=== PATIENT | female | born 1935 | race Caucasian/White ===

== ENCOUNTER 2017-05-06 19:33 | Inpatient (IN) | payer MEDICARE, OTHER ==
[2017-05-06] MEDS ORDERED: NS 0.9% 1000 ML* 2,000 ML IV ONE (20:29)
[2017-05-06] MEDS ORDERED: Cefepime(*) 2 GM in NS 0.9% 50 ML* 50 ML IVPB ONE (20:29)
[2017-05-06] MEDS ORDERED: Acetaminophen SUPP* 650 MG SUPP PR ONE (20:33)
--- NOTE | 2017-05-06 20:58 | RAD ---
INDICATION: Fever and altered mental status. COMPARISON: There are no prior studies available for comparison. TECHNIQUE: A portable view of the chest was obtained. FINDINGS: The heart appears mildly enlarged. The lungs are underinflated. There is a small infiltrate at the left lung base. No pleural effusion is seen. IMPRESSION: SMALL LEFT BASILAR INFILTRATE.
[2017-05-06 21:00] LABS: Hematocrit 41 % (35-47); Hemoglobin 13.4 g/dl (12.0-16.0); Mean Corpuscular HGB Conc 33 g/dl (31-36); Mean Corpuscular Hemoglobin 29 pg (27-31); Mean Corpuscular Volume 89 fL (80-97); Mean Platelet Volume 9 um3 (7.4-10.4); Red Blood Count 4.64 10^6/ul (4.0-5.4); Red Cell Distribution Width 16 % (10.5-15); White Blood Count 12.1 10^3/ul (3.5-10.8)
[2017-05-06] MEDS ORDERED: NS 0.9% 50 ML* 50 ML ONE (21:00)
[2017-05-06 21:14] LABS: Acetaminophen < 15 mcg/mL; Alcohol < 10 mg/dL (<10)
--- NOTE | 2017-05-06 21:14 | RAD ---
INDICATION: Fever, altered mental status. COMPARISON: There are no prior studies available for comparison. TECHNIQUE: Contiguous axial sections of the brain were obtained from the skull base to the vertex without contrast. FINDINGS: The ventricles, cisterns and sulci are enlarged consistent with diffuse atrophy. There are small areas of decreased density in the subcortical and periventricular white matter suggestive of mild chronic small vessel ischemic changes. There appears to be an old lacunar infarct within the thalamus on the right side. There is no evidence for hemorrhage or mass effect. The visualized portion of the paranasal sinuses appear clear. There is an effusion within the right middle air cavity and mastoid air cells. IMPRESSION: 1. OLD LACUNAR INFARCT IN THE RIGHT THALAMUS. 2. RIGHT MASTOID AND MIDDLE EAR EFFUSIONS SUGGESTING THE POSSIBILITY OF MASTOIDITIS AND OTITIS MEDIA. RECOMMEND CLINICAL CORRELATION.
[2017-05-06 21:17] LABS: ALT 23 U/L (7-52); AST 19 U/L (13-39); Albumin 3.9 g/dL (3.2-5.2); Alkaline Phosphatase 89 U/L (34-104); BUN/Creatinine Ratio 17.6 (8-20); Blood Urea Nitrogen 29 mg/dL (6-24); C Reactive Protein 171.26 mg/L (< 5.00); CO2 Carbon Dioxide 21 mmol/L (22-32); Calcium 9.5 mg/dL (8.6-10.3); Chloride 102 mmol/L (101-111); Creatine Kinase 24 U/L (10-223); EGFR African American 38.5 (>60); EGFR Non-African American 29.9 (>60); Globulin 3.6 g/dL (2-4); Glucose 131 mg/dL (70-100); Lipase < 10 U/L (11.0-82.0); Magnesium 2.1 mg/dL (1.9-2.7); Sodium 133 mmol/L (133-145); Total Protein 7.5 g/dL (6.4-8.9)
[2017-05-06 21:18] LABS: Troponin I 0.02 ng/mL (<0.04)
[2017-05-06 21:21] LABS: Anion Gap 10 mmol/L (2-11); Potassium 5.3 mmol/L (3.5-5.0)
[2017-05-06 21:24] LABS: TSH (Thyroid Stimulating Horm) 1.02 mcIU/mL (0.34-5.60)
--- NOTE | 2017-05-06 21:32 | RAD ---
INDICATION: Fever, altered mental status. COMPARISON: There are no prior studies available for comparison. TECHNIQUE: A CT scan of the abdomen and pelvis was performed without intravenous or oral contrast. Contiguous axial sections were obtained from the lung bases through the symphysis pubis. Images were reconstructed in the coronal and sagittal planes. FINDINGS: There are small dependent bilateral lower lobe infiltrates suggestive of atelectasis. No pleural effusion is present. The liver and spleen are normal in size without significant focal abnormality on this noncontrast study. The patient is status post cholecystectomy. There is fatty infiltration of the pancreas. The adrenal glands appear hyperplastic. There are bilateral renal calculi in the lower poles of both kidneys measuring up to 0.8 cm in size. There is dilatation of the renal pelvises on both sides and mild dilatation of the calyces suggestive of mild to moderate chronic ureteropelvic junction obstructions. No ureteral or bladder calculi are seen. The urinary bladder is distended. The aorta is tortuous and ectatic. There is moderate to severe calcific plaque present. No significant enlarged retroperitoneal lymph nodes are seen. The stomach and small bowel are nondistended. There is gaseous distention of the colon without evidence for obstruction. The appendix is not visualized. There is no evidence for diverticulitis or colitis. The patient is status post hysterectomy. No free intraperitoneal air or fluid is seen. No significant focal osseous abnormality is seen. IMPRESSION: 1. NONOBSTRUCTING BILATERAL RENAL CALCULI. 2. THERE IS DILATATION OF THE RENAL PELVISES AND CALYCES SUGGESTIVE OF CHRONIC URETEROPELVIC JUNCTION OBSTRUCTIONS. 3. STATUS POST CHOLECYSTECTOMY AND HYSTERECTOMY.
[2017-05-06] MEDS ORDERED: NS 0.9% 1000 ML* 1,000 ML IV ONE (21:41)
--- NOTE | 2017-05-06 21:46 | HP ---
H&P (Free Text) History and Physical: PCP: Date/Time: 05/06/20170 CC: lethargy, fever HPI: Mrs Beckham is an 81YO female with an unknown history. She is able to answer basic questions, but is uncertain of her medical history. No family is currently present to assist. She relates onset of cough and progressive SOB & fatigue upon arrival to [facility] earlier this month. Per ED staff family had stated she developed lethargy and confusion today prompting EMS call who found her lethargic and hypoxic. Upon arrival to ED she was found to be febrile to 105F with respiratory rate in the mid-20s to low 30s and continuing lethargy which has improved somewhat by my evaluation. CXR shows prominent LLL infiltrate. PMedHx unobtainable Medications Nursing to reconcile. Allergies No Known Allergies Allergy (Verified 05/06/17 21:29) PSurgHx OS cataract extraction tonsillectomy cholecystectomy appendectomy hysterectomy "bladder surgery" SocHx: former smoker quit 2 years ago w/ ~50PYHX, no alcohol or recreational drugs; , lived in [place] until early this month when she relocated to live with family; full code status, needs revisiting FamHx: Mother & Father passed in their 80s of "old age". Older sister is alive without known medical issues. ROS: as above, otherwise reviewed and all were negative vitals: Vital Signs Temp 40.4 C 05/06/17 21:28 Pulse 100 05/06/17 21:22 Resp 22 05/06/17 21:22 BP 122/52 05/06/17 21:22 Pulse Ox 99 05/06/17 21:24 Intake & Output 05/05/17 05/06/17 05/06/17 23:59 11:59 23:59 Weight 68.039 kg Constitutional: NAD, normally developed, well-nourished HEENM: atraumatic; sclera/conjunctiva: ; blephara: ; auricles: ; hearing: ; oropharynx: Neck: soft tissue: ; thyroid: Pulmonary: diminshed L w/ L basilar crackle, fair aeration, no accessory muscle use CV: RR/RR, normal S1S2, no carotid bruit, no jugular venous distention, 2+ B DP/ PT, no edema Abdominal: soft, non-distended, non-tender, no rebound/guarding/rigidity, normoactive bowel sounds, no hepatosplenomegaly or masses, no costovertebral angle tenderness Musculoskeletal: general: grossly intact, no palpable tenderness Integumental: normal appearance and texture of exposed skin Psychiatric orientation: AA&O to PPS, but still confused affect: calm mood: cooperative eye contact: fair content: seemingly reliable when able to answer responses: mildly slowed insight: fair Testing: Lab Results 05/06/17 05/06/17 05/06/17 Range/Units 20:09 20:09 20:09 WBC (3.5-10.8) 10^3/ul RBC (4.0-5.4) 10^6/ul Hgb (12.0-16.0) g/dl Hct (35-47) % MCV (80-97) fL MCH (27-31) pg MCHC (31-36) g/dl RDW (10.5-15) % Plt Count (150-450) 10^3/ul MPV (7.4-10.4) um3 Neut % (Auto) (38-83) % Lymph % (Auto) (25-47) % [place] % (Auto) (1-9) % Eos % (Auto) (0-6) % Baso % (Auto) (0-2) % Absolute Neuts (auto) (1.5-7.7) 10^3/ul Absolute Lymphs (auto) (1.0-4.8) 10^3/ul Absolute Monos (auto) (0-0.8) 10^3/ul Absolute Eos (auto) (0-0.6) 10^3/ul Absolute Basos (auto) (0-0.2) 10^3/ul Absolute Nucleated RBC 10^3/ul Nucleated RBC % INR (Anticoag Therapy) 1.03 (0.89-1.11) APTT 27.6 (26.0-36.3) seconds Sodium 133 (133-145) mmol/L Potassium 5.3 H (3.5-5.0) mmol/L Chloride 102 (101-111) mmol/L Carbon Dioxide 21 L (22-32) mmol/L Anion Gap 10 (2-11) mmol/L BUN 29 H (6-24) mg/dL Creatinine 1.65 H (0.51-0.95) mg/dL Est GFR ( Amer) 38.5 (>60) Est GFR (Non-Af Amer) 29.9 (>60) BUN/Creatinine Ratio 17.6 (8-20) Glucose 131 H (70-100) mg/dL Lactic Acid (0.5-2.0) mmol/L Calcium 9.5 (8.6-10.3) mg/dL Magnesium 2.1 (1.9-2.7) mg/dL Total Bilirubin 0.40 (0.2-1.0) mg/dL AST 19 (13-39) U/L ALT 23 (7-52) U/L Alkaline Phosphatase 89 (34-104) U/L Ammonia (16-53) mol/L Total Creatine Kinase 24 (10-223) U/L CK-MB (CK-2) 2.5 (0.6-6.3) ng/mL Troponin I 0.02 (<0.04) ng/mL C-Reactive Protein 171.26 H (< 5.00) mg/L B-Natriuretic Peptide 62 ( - 100) pg/mL Total Protein 7.5 (6.4-8.9) g/dL Albumin 3.9 (3.2-5.2) g/dL Globulin 3.6 (2-4) g/dL Albumin/Globulin Ratio 1.1 (1-3) Lipase < 10 L (11.0-82.0) U/L TSH 1.02 (0.34-5.60) mcIU/mL Acetaminophen < 15 mcg/mL Serum Alcohol < 10 (<10) mg/dL Influenza A (Rapid) (Negative) Influenza B (Rapid) (Negative) 05/06/17 05/06/17 05/06/17 Range/Units 20:09 20:09 21:52 WBC 12.1 H (3.5-10.8) 10^3/ul RBC 4.64 (4.0-5.4) 10^6/ul Hgb 13.4 (12.0-16.0) g/dl Hct 41 (35-47) % MCV 89 (80-97) fL MCH 29 (27-31) pg MCHC 33 (31-36) g/dl RDW 16 H (10.5-15) % Plt Count 216 (150-450) 10^3/ul MPV 9 (7.4-10.4) um3 Neut % (Auto) 79.5 (38-83) % Lymph % (Auto) 7.9 L (25-47) % [place] % (Auto) 10.3 H (1-9) % Eos % (Auto) 1.8 (0-6) % Baso % (Auto) 0.5 (0-2) % Absolute Neuts (auto) 9.7 H (1.5-7.7) 10^3/ul Absolute Lymphs (auto) 1.0 (1.0-4.8) 10^3/ul Absolute Monos (auto) 1.3 H (0-0.8) 10^3/ul Absolute Eos (auto) 0.2 (0-0.6) 10^3/ul Absolute Basos (auto) 0.1 (0-0.2) 10^3/ul Absolute Nucleated RBC 0.01 10^3/ul Nucleated RBC % 0.1 INR (Anticoag Therapy) (0.89-1.11) APTT (26.0-36.3) seconds Sodium (133-145) mmol/L Potassium (3.5-5.0) mmol/L Chloride (101-111) mmol/L Carbon Dioxide (22-32) mmol/L Anion Gap (2-11) mmol/L BUN (6-24) mg/dL Creatinine (0.51-0.95) mg/dL Est GFR ( Amer) (>60) Est GFR (Non-Af Amer) (>60) BUN/Creatinine Ratio (8-20) Glucose (70-100) mg/dL Lactic Acid 0.9 (0.5-2.0) mmol/L Calcium (8.6-10.3) mg/dL Magnesium (1.9-2.7) mg/dL Total Bilirubin (0.2-1.0) mg/dL AST (13-39) U/L ALT (7-52) U/L Alkaline Phosphatase (34-104) U/L Ammonia (16-53) mol/L Total Creatine Kinase (10-223) U/L CK-MB (CK-2) (0.6-6.3) ng/mL Troponin I (<0.04) ng/mL C-Reactive Protein (< 5.00) mg/L B-Natriuretic Peptide ( - 100) pg/mL Total Protein (6.4-8.9) g/dL Albumin (3.2-5.2) g/dL Globulin (2-4) g/dL Albumin/Globulin Ratio (1-3) Lipase (11.0-82.0) U/L TSH (0.34-5.60) mcIU/mL Acetaminophen mcg/mL Serum Alcohol (<10) mg/dL Influenza A (Rapid) Negative (Negative) Influenza B (Rapid) Negative (Negative) 05/06/17 Range/Units 21:54 WBC (3.5-10.8) 10^3/ul RBC (4.0-5.4) 10^6/ul Hgb (12.0-16.0) g/dl Hct (35-47) % MCV (80-97) fL MCH (27-31) pg MCHC (31-36) g/dl RDW (10.5-15) % Plt Count (150-450) 10^3/ul MPV (7.4-10.4) um3 Neut % (Auto) (38-83) % Lymph % (Auto) (25-47) % [place] % (Auto) (1-9) % Eos % (Auto) (0-6) % Baso % (Auto) (0-2) % Absolute Neuts (auto) (1.5-7.7) 10^3/ul Absolute Lymphs (auto) (1.0-4.8) 10^3/ul Absolute Monos (auto) (0-0.8) 10^3/ul Absolute Eos (auto) (0-0.6) 10^3/ul Absolute Basos (auto) (0-0.2) 10^3/ul Absolute Nucleated RBC 10^3/ul Nucleated RBC % INR (Anticoag Therapy) (0.89-1.11) APTT (26.0-36.3) seconds Sodium (133-145) mmol/L Potassium (3.5-5.0) mmol/L Chloride (101-111) mmol/L Carbon Dioxide (22-32) mmol/L Anion Gap (2-11) mmol/L BUN (6-24) mg/dL Creatinine (0.51-0.95) mg/dL Est GFR ( Amer) (>60) Est GFR (Non-Af Amer) (>60) BUN/Creatinine Ratio (8-20) Glucose (70-100) mg/dL Lactic Acid (0.5-2.0) mmol/L Calcium (8.6-10.3) mg/dL Magnesium (1.9-2.7) mg/dL Total Bilirubin (0.2-1.0) mg/dL AST (13-39) U/L ALT (7-52) U/L Alkaline Phosphatase (34-104) U/L Ammonia 36 (16-53) mol/L Total Creatine Kinase (10-223) U/L CK-MB (CK-2) (0.6-6.3) ng/mL Troponin I (<0.04) ng/mL C-Reactive Protein (< 5.00) mg/L B-Natriuretic Peptide ( - 100) pg/mL Total Protein (6.4-8.9) g/dL Albumin (3.2-5.2) g/dL Globulin (2-4) g/dL Albumin/Globulin Ratio (1-3) Lipase (11.0-82.0) U/L TSH (0.34-5.60) mcIU/mL Acetaminophen mcg/mL Serum Alcohol (<10) mg/dL Influenza A (Rapid) (Negative) Influenza B (Rapid) (Negative) ECG, personally reviewed: sinus tachycardia rate 102, 1st degree AB block, no ischemia CXR, personally reviewed: IMPRESSION: SMALL LEFT BASILAR INFILTRATE. CT brain WO, personally reviewed: IMPRESSION: 1. OLD LACUNAR INFARCT IN THE RIGHT THALAMUS. 2. RIGHT MASTOID AND MIDDLE EAR EFFUSIONS SUGGESTING THE POSSIBILITY OF MASTOIDITIS AND OTITIS MEDIA. RECOMMEND CLINICAL CORRELATION. CT abd/pel WO, personally reviewed: IMPRESSION: 1. NONOBSTRUCTING BILATERAL RENAL CALCULI. 2. THERE IS DILATATION OF THE RENAL PELVISES AND CALYCES SUGGESTIVE OF CHRONIC URETEROPELVIC JUNCTION OBSTRUCTIONS. 3. STATUS POST CHOLECYSTECTOMY AND HYSTERECTOMY. Impression: 81F presenting with sepsis 2nd LLL pneumonia DIAGNOSIS & PLAN Primary sepsis (qSOFA 2) 2nd LLL pneumonia : IV azithromycin & ceftriaxone : single dose cefepime given in ED : IV methylprednisolone 0.5mg/kg BID : IVFs : blood & sputum CXs : check urine Legionella & S pneumo antigens : check rapid influenza : ICU monitoring : supplemental oxgyen : jc to gravity for accurate monitoring of renal function, prevention of skin breakdown in ICU patient : supportive care Secondary unknown Admission Rational: inpatient for sepsis requiring IVFs & IV ABX in patient at high risk for mortality in the outpatient setting DVTp: heparin SQ & SCDs Code Status: full HCP: daughter, Leona Jaquez
[2017-05-06] MEDS ORDERED: Ondansetron INJ* 2 MG/ML VIAL IV PRN (22:11)
[2017-05-06 22:58] LABS: Urine Bacteria 2+ (Absent); Urine Bilirubin Negative (Negative); Urine Glucose Negative (Negative); Urine Nitrite Negative (Negative)
[2017-05-06] MEDS ORDERED: Azithromycin IV(*) 500 MG in NS 0.9% 250 ML* 250 ML IVPB SCH (23:30)
[2017-05-06] MEDS: methylPREDNISolone SOD 40 MG* 1 ML VIAL IV SCH (23:58)
[2017-05-07] MEDS: cefTRIAXone VIAL(*) 1,000 MG in NS 0.9% 50 ML* 50 ML IVPB SCH ×2 (00:17→22:20)
[2017-05-07] MEDS: Nystatin TOP POWDER* 15 GM BTL TOPICAL SCH ×4 (02:34→22:20)
[2017-05-07 05:57] LABS: Hematocrit 34 % (35-47); Hemoglobin 11.4 g/dl (12.0-16.0); Mean Corpuscular HGB Conc 33 g/dl (31-36); Mean Corpuscular Hemoglobin 29 pg (27-31); Mean Corpuscular Volume 88 fL (80-97); Mean Platelet Volume 9 um3 (7.4-10.4); Red Blood Count 3.88 10^6/ul (4.0-5.4); Red Cell Distribution Width 17 % (10.5-15)
[2017-05-07 06:14] LABS: BUN/Creatinine Ratio 20.3 (8-20); Calcium 8.3 mg/dL (8.6-10.3); Potassium 4.4 mmol/L (3.5-5.0)
--- NOTE | 2017-05-07 06:41 | ED ---
Sergio Perry Nilda, scribed for Nacho Wadsworth MD on 05/07/17 at 0457 . Altered Mental Status - HPI Summary HPI Summary: This patient is a 81 year old F BIBA presenting to [facility] with a chief complaint of altered mental status characterized as difficult to wake. Symptoms alleviated by nothing. Patient reports dry mouth, fever, syncope (yesterday), and lower back pain. Patient denies cough, chest congestion, headache, sore throat, abdominal pain, burning with urination, urinary frequency, and leg pain. NKDA. No PMHx CVA. - History Of Current Complaint Chief Complaint: EDAltMentalStatus Stated Complaint: AMS Time Seen by Provider: 05/06/17 20:06 Hx Obtained From: Patient Onset/Duration: Unknown, Still Present Character: Lethargy - Difficult to wake Alleviating Factor(s): Nothing Associated Signs And Symptoms: Positive: Fever - Allergies/Home Medications Allergies/Adverse Reactions: Allergies Allergy/AdvReac Type Severity Reaction Status Date / Time Penicillins [PCN] Allergy Unknown Verified 05/06/17 23:21 Reaction Details PMH/Surg Hx/FS Hx/Imm Hx Sensory History: Denies: Hx Legally Blind, Hx Deafness Neurological History: Denies: Hx CVA Infectious Disease History: Unable to Obtain/Confirm Infectious Disease History: Denies: Traveled Outside the [place] in Last 30 Days - Family History Known Family History: Positive: Other - mother and father of "old age" - Social History Alcohol Use: None Substance Use Type: Reports: None Smoking Status (MU): Unknown if Ever Smoked Review of Systems Positive: Fever, Other - dry mouth Positive: Other - negative chest congestion Negative: Cough Negative: Abdominal Pain Positive: Other - lower back pain Neurological: Other - difficult to wake Positive: Syncope - yesterday. Negative: Headache All Other Systems Reviewed And Are Negative: No Physical Exam - Summary Physical Exam Summary: General: severely ill-appearing Skin: warm, color reflects adequate perfusion, dry, rash underneath both breasts Head: normal Eyes: EOMI, BRANDYN ENT: oral mucosa dry Neck: supple, nontender Respiratory: CTA, breath sounds present Cardiovascular: tachycardic Abdomen: soft, nontender Bowel: hypoactive bowel sounds Musculoskeletal: strength/ROM intact, bilateral pitting edema Neurological: normal, sensory/motor intact, confused Psychological: GCS 13 Triage Information Reviewed: Yes Vital Signs On Initial Exam: Initial Vitals Temp Pulse Resp BP Pulse Ox 105.2 F 119 33 93/72 99 05/06/17 20:12 05/06/17 20:12 05/06/17 20:12 05/06/17 20:12 05/06/17 20:12 Vital Signs Reviewed: Yes - [place] Coma Scale Coma Scale Total: 13 Diagnostics - Vital Signs Vital Signs Temp Pulse Resp BP Pulse Ox 05/06/17 20:12 105.2 F 119 33 93/72 99 - Laboratory Lab Results: Lab Results 05/06/17 05/06/17 05/06/17 Range/Units 20:09 20:09 20:09 WBC (3.5-10.8) 10^3/ul RBC (4.0-5.4) 10^6/ul Hgb (12.0-16.0) g/dl Hct (35-47) % MCV (80-97) fL MCH (27-31) pg MCHC (31-36) g/dl RDW (10.5-15) % Plt Count (150-450) 10^3/ul MPV (7.4-10.4) um3 Neut % (Auto) (38-83) % Lymph % (Auto) (25-47) % [place] % (Auto) (1-9) % Eos % (Auto) (0-6) % Baso % (Auto) (0-2) % Absolute Neuts (auto) (1.5-7.7) 10^3/ul Absolute Lymphs (auto) (1.0-4.8) 10^3/ul Absolute Monos (auto) (0-0.8) 10^3/ul Absolute Eos (auto) (0-0.6) 10^3/ul Absolute Basos (auto) (0-0.2) 10^3/ul Absolute Nucleated RBC 10^3/ul Nucleated RBC % INR (Anticoag Therapy) 1.03 (0.89-1.11) APTT 27.6 (26.0-36.3) seconds Sodium 133 (133-145) mmol/L Potassium 5.3 H (3.5-5.0) mmol/L Chloride 102 (101-111) mmol/L Carbon Dioxide 21 L (22-32) mmol/L Anion Gap 10 (2-11) mmol/L BUN 29 H (6-24) mg/dL Creatinine 1.65 H (0.51-0.95) mg/dL Est GFR ( Amer) 38.5 (>60) Est GFR (Non-Af Amer) 29.9 (>60) BUN/Creatinine Ratio 17.6 (8-20) Glucose 131 H (70-100) mg/dL Lactic Acid (0.5-2.0) mmol/L Calcium 9.5 (8.6-10.3) mg/dL Magnesium 2.1 (1.9-2.7) mg/dL Total Bilirubin 0.40 (0.2-1.0) mg/dL AST 19 (13-39) U/L ALT 23 (7-52) U/L Alkaline Phosphatase 89 (34-104) U/L Ammonia (16-53) mol/L Total Creatine Kinase 24 (10-223) U/L CK-MB (CK-2) 2.5 (0.6-6.3) ng/mL Troponin I 0.02 (<0.04) ng/mL C-Reactive Protein 171.26 H (< 5.00) mg/L B-Natriuretic Peptide 62 ( - 100) pg/mL Total Protein 7.5 (6.4-8.9) g/dL Albumin 3.9 (3.2-5.2) g/dL Globulin 3.6 (2-4) g/dL Albumin/Globulin Ratio 1.1 (1-3) Lipase < 10 L (11.0-82.0) U/L TSH 1.02 (0.34-5.60) mcIU/mL Acetaminophen < 15 mcg/mL Serum Alcohol < 10 (<10) mg/dL Influenza A (Rapid) (Negative) Influenza B (Rapid) (Negative) 05/06/17 05/06/17 05/06/17 Range/Units 20:09 20:09 21:52 WBC 12.1 H (3.5-10.8) 10^3/ul RBC 4.64 (4.0-5.4) 10^6/ul Hgb 13.4 (12.0-16.0) g/dl Hct 41 (35-47) % MCV 89 (80-97) fL MCH 29 (27-31) pg MCHC 33 (31-36) g/dl RDW 16 H (10.5-15) % Plt Count 216 (150-450) 10^3/ul MPV 9 (7.4-10.4) um3 Neut % (Auto) 79.5 (38-83) % Lymph % (Auto) 7.9 L (25-47) % [place] % (Auto) 10.3 H (1-9) % Eos % (Auto) 1.8 (0-6) % Baso % (Auto) 0.5 (0-2) % Absolute Neuts (auto) 9.7 H (1.5-7.7) 10^3/ul Absolute Lymphs (auto) 1.0 (1.0-4.8) 10^3/ul Absolute Monos (auto) 1.3 H (0-0.8) 10^3/ul Absolute Eos (auto) 0.2 (0-0.6) 10^3/ul Absolute Basos (auto) 0.1 (0-0.2) 10^3/ul Absolute Nucleated RBC 0.01 10^3/ul Nucleated RBC % 0.1 INR (Anticoag Therapy) (0.89-1.11) APTT (26.0-36.3) seconds Sodium (133-145) mmol/L Potassium (3.5-5.0) mmol/L Chloride (101-111) mmol/L Carbon Dioxide (22-32) mmol/L Anion Gap (2-11) mmol/L BUN (6-24) mg/dL Creatinine (0.51-0.95) mg/dL Est GFR ( Amer) (>60) Est GFR (Non-Af Amer) (>60) BUN/Creatinine Ratio (8-20) Glucose (70-100) mg/dL Lactic Acid 0.9 (0.5-2.0) mmol/L Calcium (8.6-10.3) mg/dL Magnesium (1.9-2.7) mg/dL Total Bilirubin (0.2-1.0) mg/dL AST (13-39) U/L ALT (7-52) U/L Alkaline Phosphatase (34-104) U/L Ammonia (16-53) mol/L Total Creatine Kinase (10-223) U/L CK-MB (CK-2) (0.6-6.3) ng/mL Troponin I (<0.04) ng/mL C-Reactive Protein (< 5.00) mg/L B-Natriuretic Peptide ( - 100) pg/mL Total Protein (6.4-8.9) g/dL Albumin (3.2-5.2) g/dL Globulin (2-4) g/dL Albumin/Globulin Ratio (1-3) Lipase (11.0-82.0) U/L TSH (0.34-5.60) mcIU/mL Acetaminophen mcg/mL Serum Alcohol (<10) mg/dL Influenza A (Rapid) Negative (Negative) Influenza B (Rapid) Negative (Negative) 05/06/17 Range/Units 21:54 WBC (3.5-10.8) 10^3/ul RBC (4.0-5.4) 10^6/ul Hgb (12.0-16.0) g/dl Hct (35-47) % MCV (80-97) fL MCH (27-31) pg MCHC (31-36) g/dl RDW (10.5-15) % Plt Count (150-450) 10^3/ul MPV (7.4-10.4) um3 Neut % (Auto) (38-83) % Lymph % (Auto) (25-47) % [place] % (Auto) (1-9) % Eos % (Auto) (0-6) % Baso % (Auto) (0-2) % Absolute Neuts (auto) (1.5-7.7) 10^3/ul Absolute Lymphs (auto) (1.0-4.8) 10^3/ul Absolute Monos (auto) (0-0.8) 10^3/ul Absolute Eos (auto) (0-0.6) 10^3/ul Absolute Basos (auto) (0-0.2) 10^3/ul Absolute Nucleated RBC 10^3/ul Nucleated RBC % INR (Anticoag Therapy) (0.89-1.11) APTT (26.0-36.3) seconds Sodium (133-145) mmol/L Potassium (3.5-5.0) mmol/L Chloride (101-111) mmol/L Carbon Dioxide (22-32) mmol/L Anion Gap (2-11) mmol/L BUN (6-24) mg/dL Creatinine (0.51-0.95) mg/dL Est GFR ( Amer) (>60) Est GFR (Non-Af Amer) (>60) BUN/Creatinine Ratio (8-20) Glucose (70-100) mg/dL Lactic Acid (0.5-2.0) mmol/L Calcium (8.6-10.3) mg/dL Magnesium (1.9-2.7) mg/dL Total Bilirubin (0.2-1.0) mg/dL AST (13-39) U/L ALT (7-52) U/L Alkaline Phosphatase (34-104) U/L Ammonia 36 (16-53) mol/L Total Creatine Kinase (10-223) U/L CK-MB (CK-2) (0.6-6.3) ng/mL Troponin I (<0.04) ng/mL C-Reactive Protein (< 5.00) mg/L B-Natriuretic Peptide ( - 100) pg/mL Total Protein (6.4-8.9) g/dL Albumin (3.2-5.2) g/dL Globulin (2-4) g/dL Albumin/Globulin Ratio (1-3) Lipase (11.0-82.0) U/L TSH (0.34-5.60) mcIU/mL Acetaminophen mcg/mL Serum Alcohol (<10) mg/dL Influenza A (Rapid) (Negative) Influenza B (Rapid) (Negative) Result Diagrams: 05/07/17 05:25 05/07/17 05:25 Lab Statement: Any lab studies that have been ordered have been reviewed, and results considered in the medical decision making process. - Radiology CXR Radiology Interpretation Completed By: Radiologist - Impression: small left basilar infiltrate ED physician has reviewed report and agrees. - CT Abdomen/Pelvis w/o CT Interpretation: Positive (See Comments) CT Interpretation Completed By: Radiologist - 1. NONOBSTRUCTING BILATERAL RENAL CALCULI. 2. THERE IS DILATATION OF THE RENAL PELVISES AND CALYCES SUGGESTIVE OF CHRONIC URETEROPELVIC JUNCTION OBSTRUCTIONS. 3. STATUS POST CHOLECYSTECTOMY AND HYSTERECTOMY. ED physician has reviewed report and agrees. CT Brain CT Interpretation: Positive (See Comments) CT Interpretation Completed By: Radiologist - 1. OLD LACUNAR INFARCT IN THE RIGHT THALAMUS. 2. RIGHT MASTOID AND MIDDLE EAR EFFUSIONS SUGGESTING THE POSSIBILITY OF MASTOIDITIS AND OTITIS MEDIA. RECOMMEND CLINICAL CORRELATION. ED physician has reviewed report and agrees. - EKG 2121 Cardiac Rate: Tachycardia - 102 bpm EKG Rhythm: Sinus Tachycardia ST Segment: Normal EKG Interpretation: ND interval of 219 Re-Evaluation - Re-Evaluation First Eval Re-Evaluation Time: 20:27 Comment: Reviewed drug allergies. Altered Mental Statu Course/Dx - Course Course Of Treatment: ADMIT GUARDED HOSPITALIST. Assessment/Plan: Medications reviewed. - Diagnoses Discharge Diagnoses: Sepsis, Pneumonia, Altered mental state - Provider Notifications Discussed Care Of Patient With: Pradip Hendrix - Hospitalist Time Discussed With Above Provider: 20:29 Instructed by Provider To: Admit As Inpatient - Critical Care Time Critical Care Time: 30-74 min Discharge - Discharge Plan Condition: Guarded Disposition: ADMITTED TO [facility] The documentation as recorded by the Sergio miner Nilda accurately reflects the service I personally performed and the decisions made by me, Nacho Wadsworth MD.
--- NOTE | 2017-05-07 07:52 | PN ---
Subjective Date of Service: 05/07/17 Interval History: Ms. Beckham remains lethargic but does open her eyes to stimulation, follow commands, and communicate briefly. She does know where she is. She complains that she is hard of hearing in her right ear. She denies any other complaint this morning. Nursing staff note that she went in to afib overnight but is rate controlled. With this her blood pressure did fall but remains above 90 systolically. Objective Active Medications: Acetaminophen (Tylenol Tab*) 650 mg PO Q6H PRN Docusate Sodium (Colace Cap*) 200 mg PO BID [facility] Guaifenesin (Mucinex*) 1,200 mg PO BID [facility] Sodium Chloride (Ns 0.9% 1000 Ml*) 1,000 mls @ 85 mls/hr IV PER RATE [facility] Ceftriaxone Sodium 1,000 mg/ (Sodium Chloride) 50 mls @ 200 mls/hr IVPB Q24H [facility] Azithromycin 500 mg/ Sodium (Chloride) 250 mls @ 250 mls/hr IVPB Q24H [facility] Methylprednisolone Sodium Succinate (Solu-Medrol 40 Mg) 40 mg IV Q12H [facility] Nystatin (Nystatin Top Powder*) 1 applic TOPICAL TID [facility] Ondansetron HCl (Zofran Inj*) 4 mg IV Q6H PRN Vital Signs: Temp Pulse Resp BP Pulse Ox 97.7 F 77 21 154/142 95 05/07/17 06:03 05/07/17 06:03 05/07/17 06:03 05/07/17 06:00 05/07/17 06:03 Oxygen Devices in Use Now: Nasal Cannula Appearance: Elderly female lying in bed, aroses to noxious stimuli, in no acute distress Ears/Nose/Mouth/Throat: Mucous Membranes Moist, - - minimal erythema with effusion to right TM, no effusion to left TM Neck: Trachea Midline Respiratory: Symmetrical Chest Expansion and Respiratory Effort, Clear to Auscultation Cardiovascular: NL Sounds; No Murmurs; No JVD, No Edema, - - Irregular Abdominal: NL Sounds; No Tenderness; No Distention Lymphatic: No Cervical Adenopathy Extremities: No Edema Skin: - - rash under breast folds Neurological: - - Awakens to insistent voice or noxious stimuli, follows commands and answers questions appropriately, though only stays awake for a few seconds, no facial asymmetry, pupils Nutrition: - - NPO Result Diagrams: 05/07/17 05:25 05/07/17 05:25 Additional Lab and Data: Vital Signs: Temp Pulse Resp BP Pulse Ox 98.2 F 57 18 118/52 96 05/07/17 16:01 05/07/17 16:01 05/07/17 16:01 05/07/17 16:00 05/07/17 16:01 Microbiology and Other Data: Microbiology 05/07/17 00:40 Nasal Screen MRSA (PCR)(COURT) - Final Nasal Mrsa Negative 05/07/17 00:40 Influenza Types A,B Antigen (COURT) - Final Nasal Specimen received for Influenza A/B Molecular testing 05/06/17 22:34 Legionella Urinary Antigen - Final Urine Negative Legionella Streptococcus pneumoniae Ag Screen - Final Negative S. pneumo Antigen Assess/Plan/Problems-Billing Assessment: Ms. Beckham is an 81 yo female with an unknown PMH who was admitted on with sepsis secondary to UTI with possible concomitant left lower lobe pneumonia. - Patient Problems (1) Sepsis Comment: - Afebrile this AM, no leukocytosis, HR controlled, no tachypnea. - Suspect secondary to UTI but cxray also shows concern for LL pneumonia. - LA normal, continue maintenance IVF. (2) UTI (urinary tract infection) Comment: - UA with 3+ LE and 2+ bacteria. - Continue ceftriaxone, await cultures. (3) Pneumonia Comment: - LL pneumonia noted on cxray, however not hypoxic and no clear report of cough at home. - Continue ceftriaxone, plan to switch to doxycycline given significant sinus pauses as azith prolongs Qt interval. Stop solumedrol. - O2 as needed. (4) Otitis media Comment: - Right ear effusion noted, patient notes hearing loss as well. - Continue ceftriaxone. (5) Sinus pause Comment: - 2 second pauses noted on telemetry in the AM. - Resume amiodarone. Stop zofran and azithromcyin. - Held metoprolol initially but will add back in low dose to avoid rebound tachycardia, decrease from 100 BID to 12.5 BID. (6) Afib Comment: - Developed rate controlled afib overnight. - Based on med list, is on amiodarone outpatient. Have requested records from [facility] but havent recieved. Patient recently moved from [place] and she and her daughter do not have any information on her PMH. - Continue to treat sepsis as per above. - Resume amiodarone. (7) Depression Comment: - Continue fluoxetine. (8) Hypertension Comment: - SBP 100s. Hold hctz, amlodipine and lisinopril during acute illness, resume when BP improved. (9) DVT prophylaxis Comment: - Heparin SQ. (10) Full code status Status and Disposition: Inpatient with critical illness and expected LOS > 2 days. Patient recently moved in with daughter from [place], outpatient case manager following. Very little information about PMH, requested records from one and only visit to [facility]. Patient's daughter does not know the name of her PCP in [place].
[2017-05-07] MEDS: Docusate CAP* 100 MG PO SCH ×3 (09:30→22:22)
[2017-05-07] MEDS: guaiFENesin ER TAB 600 MG PO SCH ×2 (09:30→22:22)
[2017-05-07] MEDS: methylPREDNISolone SOD 40 MG* 1 ML VIAL IV SCH (11:19)
[2017-05-07] MEDS: Amiodarone TAB* 200 MG PO SCH (13:15)
[2017-05-07] MEDS: Heparin VIAL(*) 5000 UNITS/ML VIAL (FIVE THOUSAND) SUBCUT SCH ×2 (13:15→22:22)
[2017-05-07] MEDS ORDERED: Pregabalin CAP(*) 50 MG PO SCH (14:00)
[2017-05-07] MEDS: Acetaminophen TAB* 325 MG PO PRN ×2 (14:50→22:32)
[2017-05-07] MEDS: DOXYcycline CAP(*) 100 MG PO SCH (20:56)
[2017-05-07] MEDS: NS 0.9% 1000 ML* 1,000 ML IV SCH (20:56)
[2017-05-07] MEDS ORDERED: Senna/Docusate (NF) TAB PO SCH (21:00)
[2017-05-07] MEDS ORDERED: Famotidine TAB* 20 MG PO SCH (21:00)
[2017-05-07] MEDS: Metoprolol Tartrate TAB* 25 MG PO SCH (22:23)
[2017-05-07] MEDS: Senna TAB PO SCH (22:23)
[2017-05-08] MEDS ORDERED: Ropinirole TAB* 0.5 MG TAB PO ONE (00:17)
[2017-05-08] MEDS: Heparin VIAL(*) 5000 UNITS/ML VIAL (FIVE THOUSAND) SUBCUT SCH ×3 (05:35→21:40)
[2017-05-08] MEDS ORDERED: Amiodarone TAB* 200 MG PO SCH (09:00)
[2017-05-08] MEDS ORDERED: amLODIPine TAB* 5 MG PO SCH (09:00)
[2017-05-08] MEDS: Aspirin TAB* 325 MG PO SCH (10:03)
[2017-05-08] MEDS: DOXYcycline CAP(*) 100 MG PO SCH ×2 (10:03→21:25)
[2017-05-08] MEDS: Metoprolol Tartrate TAB* 25 MG PO SCH ×2 (10:04→21:23)
[2017-05-08] MEDS: Acetaminophen TAB* 325 MG PO PRN (10:05)
[2017-05-08] MEDS: Amiodarone TAB* 200 MG PO SCH (10:06)
[2017-05-08] MEDS: guaiFENesin ER TAB 600 MG PO SCH ×2 (10:06→21:24)
[2017-05-08] MEDS: FLUoxetine CAP* 10 MG PO SCH (10:06)
[2017-05-08] MEDS: Famotidine TAB* 20 MG PO SCH (10:09)
[2017-05-08] MEDS: Senna TAB PO SCH ×2 (10:09→21:25)
[2017-05-08] MEDS: Docusate CAP* 100 MG PO SCH ×3 (10:10→21:23)
[2017-05-08] MEDS: NS 0.9% 1000 ML* 1,000 ML IV SCH ×2 (10:13→22:06)
[2017-05-08] MEDS: Nystatin TOP POWDER* 15 GM BTL TOPICAL SCH ×3 (10:17→21:22)
[2017-05-08] MEDS: Ropinirole TAB* 0.5 MG TAB PO SCH ×2 (15:29→21:23)
--- NOTE | 2017-05-08 17:56 | PN ---
Subjective Date of Service: 05/08/17 Interval History: C/O SOB, started soon after she moved here from [place]. Little cough. Objective Active Medications: Acetaminophen (Tylenol Tab*) 650 mg PO Q6H PRN PRN Reason: FEVER/PAIN Last Admin: 05/08/17 10:05 Dose: 650 mg Albuterol/Ipratropium (Duoneb (Albuterol 2.5 Mg/Ipratropium 0.5 Mg)) 1 neb INH [id number] AWAKE [facility] Amiodarone HCl (Cordarone Tab*) 200 mg PO DAILY [facility] Last Admin: 05/08/17 10:06 Dose: 200 mg Aspirin (Aspirin Tab*) 325 mg PO DAILY [facility] Last Admin: 05/08/17 10:03 Dose: 325 mg Docusate Sodium (Colace Cap*) 100 mg PO BID [facility] Last Admin: 05/08/17 10:10 Dose: 100 mg Doxycycline Hyclate (Vibramycin Cap(*)) 100 mg PO BID [facility] Last Admin: 05/08/17 10:03 Dose: 100 mg Famotidine (Pepcid Tab*) 20 mg PO DAILY [facility] Last Admin: 05/08/17 10:09 Dose: 20 mg Fluoxetine HCl (Prozac Cap*) 10 mg PO DAILY [facility] Last Admin: 05/08/17 10:06 Dose: 10 mg Guaifenesin (Mucinex*) 1,200 mg PO BID [facility] Last Admin: 05/08/17 10:06 Dose: 1,200 mg Heparin Sodium (Porcine) (Heparin Vial(*)) 5,000 units SUBCUT Q8HR [facility] Last Admin: 05/08/17 14:39 Dose: 5,000 units Heparin Sodium (Porcine) (Heparin Flush Picc/Ml/Cvc(*)) 1 ml FLUSH 0600,1800 [facility] PRN Reason: Protocol Last Admin: 05/08/17 05:01 Dose: Not Given Sodium Chloride (Ns 0.9% 1000 Ml*) 1,000 mls @ 85 mls/hr IV PER RATE [facility] Last Admin: 05/08/17 10:13 Dose: 85 mls/hr Ceftriaxone Sodium 1,000 mg/ (Sodium Chloride) 50 mls @ 200 mls/hr IVPB Q24H [facility] Last Admin: 05/07/17 22:20 Dose: 200 mls/hr Metoprolol Tartrate (Lopressor Tab*) 12.5 mg PO Q12HR [facility] Last Admin: 05/08/17 10:04 Dose: 12.5 mg Nystatin (Nystatin Top Powder*) 1 applic TOPICAL TID [facility] Last Admin: 05/08/17 14:40 Dose: Not Given Prednisone (Deltasone Tab*) 60 mg PO DAILY [facility] Ropinirole HCl (Requip Tab*) 0.5 mg PO BID [facility] Last Admin: 05/08/17 15:29 Dose: 0.5 mg Senna (Senokot Tab*) 2 tab PO BID [facility] Last Admin: 05/08/17 10:09 Dose: 2 tab Vital Signs 05/07/17 05/07/17 05/07/17 18:00 19:00 20:23 Temperature 97.9 F 97.7 F 96.8 F Pulse Rate 49 55 70 Respiratory 19 18 20 Rate Blood Pressure 124/51 128/52 139/52 (mmHg) O2 Sat by Pulse 99 98 99 Oximetry 05/07/17 05/07/17 05/08/17 20:30 23:32 02:57 Temperature 97.6 F Pulse Rate 60 Respiratory 20 16 Rate Blood Pressure 125/50 (mmHg) O2 Sat by Pulse 99 99 Oximetry 05/08/17 05/08/17 05/08/17 03:30 07:39 08:00 Temperature 97.7 F 97.7 F Pulse Rate 62 65 Respiratory 16 16 16 Rate Blood Pressure 139/51 126/47 (mmHg) O2 Sat by Pulse 99 99 Oximetry 05/08/17 05/08/17 11:39 15:47 Temperature 97.5 F 97.5 F Pulse Rate 48 65 Respiratory 20 16 Rate Blood Pressure 148/67 162/67 (mmHg) O2 Sat by Pulse 97 98 Oximetry Oxygen Devices in Use Now: Nasal Cannula Appearance: Alert, partly up in bed. IN fair spirits. Looks comfortable. Eyes: No Scleral Icterus Neck: NL Appearance and Movements; NL JVP, No Thyroid Enlargement, Masses Respiratory: Symmetrical Chest Expansion and Respiratory Effort, Clear to Percussion, - - Rales R base Cardiovascular: NL Sounds; No Murmurs; No JVD, RRR, No Edema, - Extremities: No Edema, No Clubbing, Cyanosis, - Skin: No Rash or Ulcers, No Nodules or Sclerosis, - Neurological: Alert and Oriented x 3, NL Sensation Result Diagrams: 05/07/17 05:25 05/07/17 05:25 Additional Lab and Data: Vital Signs: Temp Pulse Resp BP Pulse Ox 98.2 F 57 18 118/52 96 05/07/17 16:01 05/07/17 16:01 05/07/17 16:01 05/07/17 16:00 05/07/17 16:01 Microbiology and Other Data: Microbiology 05/07/17 00:40 Nasal Screen MRSA (PCR)(COURT) - Final Nasal Mrsa Negative 05/07/17 00:40 Influenza Types A,B Antigen (COURT) - Final Nasal Specimen received for Influenza A/B Molecular testing 05/06/17 22:34 Legionella Urinary Antigen - Final Urine Negative Legionella Streptococcus pneumoniae Ag Screen - Final Negative S. pneumo Antigen Assess/Plan/Problems-Billing Assessment: Ms. Beckham is an 81 yo female with an unknown PMH who was admitted on with sepsis secondary to UTI with possible concomitant left lower lobe pneumonia. - Patient Problems (1) Afib Current Visit: Yes Status: Acute Code(s): I48.91 - UNSPECIFIED ATRIAL FIBRILLATION SNOMED Code(s): 18718594 Comment: TSH wnl05/06/17. Echo ordered. - Resumed amiodarone. Continue metoprolol. (2) Sepsis Current Visit: Yes Status: Acute Comment: - Afebrile since admission, no leukocytosis, HR controlled, no tachypnea. - Suspect secondary to UTI but cxray also shows concern for LL pneumonia. - COntinue cefriaxone. UTI sens pending. (3) COPD (chronic obstructive pulmonary disease) Current Visit: Yes Status: Acute Code(s): J44.9 - CHRONIC OBSTRUCTIVE PULMONARY DISEASE, UNSPECIFIED SNOMED Code(s): 08647268 Comment: Quit smoking 2 yrs ago. Suspect allergic component due to moving from [place]. Start prednisone 05/08 6 PM. (4) Hypertension Current Visit: Yes Status: Acute Code(s): I10 - ESSENTIAL (PRIMARY) HYPERTENSION SNOMED Code(s): 47245809 Comment: Holding hctz, amlodipine and lisinopril during acute illness, resume as needed. Status and Disposition: Inpatient with critical illness and expected LOS > 2 days. Patient recently moved in with daughter from [place], case advocate following. Very little information about PMH, requested records from one and only visit to [facility]. Patient's daughter does not know the name of her PCP in [place].
[2017-05-08] MEDS: predniSONE TAB* 20 MG PO SCH (18:17)
[2017-05-08] MEDS: Albuterol/Ipratropium NEB.SOL* Albuterol 2.5 MG/Ipratropium 0.5 MG 3 ML INH SCH ×2 (19:26→23:01)
[2017-05-08] MEDS ORDERED: Ondansetron TAB* 4 MG PO PRN (20:00)
[2017-05-08] MEDS ORDERED: CMCS:Melatonin (NF) 3 MG TAB PO SCH (21:00)
[2017-05-08] MEDS: LORazepam TAB(*) 0.5 MG PO SCH (21:24)
[2017-05-08] MEDS: cefTRIAXone VIAL(*) 1,000 MG in NS 0.9% 50 ML* 50 ML IVPB SCH (22:06)
[2017-05-09] MEDS: Acetaminophen TAB* 325 MG PO PRN ×3 (02:11→18:40)
[2017-05-09] MEDS: Albuterol/Ipratropium NEB.SOL* Albuterol 2.5 MG/Ipratropium 0.5 MG 3 ML INH SCH ×4 (03:51→19:41)
[2017-05-09] MEDS: Heparin VIAL(*) 5000 UNITS/ML VIAL (FIVE THOUSAND) SUBCUT SCH ×3 (05:50→20:43)
[2017-05-09] MEDS: Aspirin TAB* 325 MG PO SCH (08:55)
[2017-05-09] MEDS: Amiodarone TAB* 200 MG PO SCH (08:55)
[2017-05-09] MEDS: Famotidine TAB* 20 MG PO SCH (08:56)
[2017-05-09] MEDS: LORazepam TAB(*) 0.5 MG PO SCH ×3 (08:56→20:30)
[2017-05-09] MEDS: Ropinirole TAB* 0.5 MG TAB PO SCH ×2 (08:57→20:28)
[2017-05-09] MEDS: guaiFENesin ER TAB 600 MG PO SCH ×2 (08:57→20:36)
[2017-05-09] MEDS: Docusate CAP* 100 MG PO SCH ×2 (08:57→20:33)
[2017-05-09] MEDS: predniSONE TAB* 20 MG PO SCH (08:57)
[2017-05-09] MEDS: DOXYcycline CAP(*) 100 MG PO SCH ×2 (08:57→20:31)
[2017-05-09] MEDS: FLUoxetine CAP* 10 MG PO SCH (08:57)
[2017-05-09] MEDS: Metoprolol Tartrate TAB* 25 MG PO SCH ×2 (08:58→20:34)
[2017-05-09] MEDS: Senna TAB PO SCH ×2 (09:10→20:32)
[2017-05-09] MEDS: Nystatin TOP POWDER* 15 GM BTL TOPICAL SCH ×3 (09:10→20:47)
[2017-05-09] MEDS: NS 0.9% 1000 ML* 1,000 ML IV SCH ×2 (10:38→22:55)
--- NOTE | 2017-05-09 11:10 | ECHO ---
Patient: ELLIOTT KELLY [facility] Rec#: [id number] : 1935 Date: 05/09/2017 Age: 81y Height: 162.56 cm / 64.0 in Weight: 68.04 kg / 150.0 lbs Sex: F BSA: 1.73 Room#: [facility] Admit Date#: 05/06/2017 Type: Inpatient Referring: Mohit Tan MD Reading: Cristian Lebron MD Pack Worker Supervisor[facility] Tr[facility] Ech[facility] Indication: Atrial fibrillation BP: 160/90 HR: 69 Rhythm: A-Fib Findings History: HTN, COPD, former smoker. Technical Comments: The study quality is fair. The study is technically limited due to patient body habitus. The study was technically limited due to the patient's inability to lay in the left lateral decubitus position. Due to becoming short of breath. Completed at 1045. Left Ventricle: The left ventricular chamber size is normal. Mild concentric left ventricular hypertrophy is observed. Global left ventricular wall motion and contractility are within normal limits. There is normal left ventricular systolic function.Of note the most proximal portion of the inferior/low posterolateral wall is not well visualized The estimated ejection fraction is 55-60%. Abnormal left ventricular diastolic filling is observed, consistent with impaired relaxation. Left Atrium: The left atrium is mildly dilated. Right Ventricle: The right ventricular cavity size is normal. The right ventricular global systolic function is normal. Right Atrium: The right atrium is mildly dilated. Aortic Valve: The aortic valve is trileaflet. The aortic valve leaflets are mildly thickened. There is a trace of aortic regurgitation. There is no evidence of aortic stenosis. Mitral Valve: There is mitral annular calcification. The mitral valve leaflets are mildly thickened. There is trace to mild mitral regurgitation. There is no evidence of mitral stenosis. Tricuspid Valve: The tricuspid valve leaflets are normal. There is trace to mild tricuspid regurgitation. The right ventricular systolic pressure is estimated at 45 mmHg. There is evidence of mild to moderate pulmonary hypertension. There is no tricuspid stenosis. Pulmonic Valve: The pulmonic valve appears normal. There is mild pulmonic regurgitation. There is no pulmonic stenosis. Pericardium: There is no significant pericardial effusion. A pericardial fat pad is visualized. Aorta: There is no dilatation of the ascending aorta. The aortic arch is not well visualized. The aortic root is normal in size. Pulmonary Artery: The main pulmonary artery appears normal. Venous: The inferior vena cava appears normal in size. There is a greater than 50% respiratory change in the inferior vena cava dimension. Conclusions The study is technically limited due to patient body habitus. The study was technically limited due to the patient's inability to lay in the left lateral decubitus position. Due to becoming short of breath. Completed at 1045. Mild concentric left ventricular hypertrophy is observed. There is normal left ventricular systolic function.Of note the most proximal portion of the inferior/low posterolateral wall is not well visualized The estimated ejection fraction is 55-60%. Abnormal left ventricular diastolic filling is observed, consistent with impaired relaxation. The left atrium is mildly dilated. No significant valvular disease: There is a trace of aortic regurgitation. There is trace to mild mitral regurgitation. There is trace to mild tricuspid regurgitation. There is evidence of mild to moderate pulmonary hypertension. There is mild pulmonic regurgitation. No reports of prior studies offered for comparison. Measurements Name Value Normal Range RVIDd (AP) 2D 2.15 cm (0.9 - 2.6) RVDdMajor (2D) 3.5 cm (2.2 - 4.4) RAd ISD 4CH 5.3 cm (3.4 - 4.9) RA (A4C)W 3.1 cm (2.9 - 4.6) IVSd (2D) 1.2 cm (0.6 - 1) LVPWd (2D) 1.2 cm (0.6 - 1) LVIDd (2D) 3.79 cm (3.6 - 5.4) LVIDs (2D) 2.5 cm - LV FS (2D) 34 % (25 - 45) Aortic Annulus 1.9 cm (1.4 - 2.6) Ao root diameter (2D) 3.1 cm (2.1 - 3.5) Ascending Ao 2.9 cm (2.1 - 3.4) LA dimension (AP) 2D 3.6 cm (2.3 - 3.8) LAd ISD 4CH 5.3 cm (2.9 - 5.3) LA ISD 4CH W 3.8 cm (2.5 - 4.5) Name Value Normal Range LA ESV SP 4CH (A/L) 61 ml - LA ESV SP 2CH (A/L) 67 ml - LA ESV BP (A/L) 65 ml - LA ESV BP (A/L) index 37.54 ml/m2 - LA ESV SP 4CH (MOD) 51 ml - LA ESV SP 2CH (MOD) 63 ml - Name Value Normal Range MV E-wave Vmax 0.43 m/sec - MV deceleration time 192.8 msec - MV A-wave Vmax 0.85 m/sec - MV E:A ratio 0.51 ratio - LV septal e' Vmax 0.06 m/sec - LV lateral e' Vmax 0.06 m/sec - LV E:e' septal ratio 7.17 ratio - LV E:e' lateral ratio 7.17 ratio - Name Value Normal Range AV Vmax 1 m/sec - AV VTI 19.2 cm - AV peak gradient 3.63 mmHg - AV mean gradient 1.77 mmHg - LVOT Vmax 0.77 m/sec - LVOT VTI 17.2 cm - LVOT peak gradient 2.41 mmHg - LVOT mean gradient 1.2 mmHg - Name Value Normal Range TR Vmax 2.75 m/sec - TR peak gradient 30 mmHg - RAP 15 mmHg - RVSP 45 mmHg - IVC diameter 2.4 cm - Name Value Normal Range PV Vmax 0.73 m/sec - PV peak gradient 2.12 mmHg -
--- NOTE | 2017-05-09 15:53 | PN ---
Subjective Date of Service: 05/09/17 Interval History: Feels better today, less SOB. No new c/o. Objective Active Medications: Acetaminophen (Tylenol Tab*) 650 mg PO Q6H PRN PRN Reason: FEVER/PAIN Last Admin: 05/09/17 12:46 Dose: 650 mg Albuterol/Ipratropium (Duoneb (Albuterol 2.5 Mg/Ipratropium 0.5 Mg)) 1 neb INH [id number] AWAKE [facility] Last Admin: 05/09/17 13:53 Dose: 1 neb Amiodarone HCl (Cordarone Tab*) 200 mg PO DAILY [facility] Last Admin: 05/09/17 08:55 Dose: 200 mg Aspirin (Aspirin Tab*) 325 mg PO DAILY [facility] Last Admin: 05/09/17 08:55 Dose: 325 mg Docusate Sodium (Colace Cap*) 100 mg PO BID [facility] Last Admin: 05/09/17 08:57 Dose: Not Given Doxycycline Hyclate (Vibramycin Cap(*)) 100 mg PO BID [facility] Last Admin: 05/09/17 08:57 Dose: 100 mg Famotidine (Pepcid Tab*) 20 mg PO DAILY [facility] Last Admin: 05/09/17 08:56 Dose: 20 mg Fluoxetine HCl (Prozac Cap*) 10 mg PO DAILY [facility] Last Admin: 05/09/17 08:57 Dose: 10 mg Guaifenesin (Mucinex*) 1,200 mg PO BID [facility] Last Admin: 05/09/17 08:57 Dose: 1,200 mg Heparin Sodium (Porcine) (Heparin Vial(*)) 5,000 units SUBCUT Q8HR [facility] Last Admin: 05/09/17 15:20 Dose: 5,000 units Heparin Sodium (Porcine) (Heparin Flush Picc/Ml/Cvc(*)) 1 ml FLUSH 0600,1800 [facility] PRN Reason: Protocol Last Admin: 05/09/17 05:23 Dose: Not Given Sodium Chloride (Ns 0.9% 1000 Ml*) 1,000 mls @ 85 mls/hr IV PER RATE [facility] Last Admin: 05/09/17 10:38 Dose: 85 mls/hr Ceftriaxone Sodium 1,000 mg/ (Sodium Chloride) 50 mls @ 200 mls/hr IVPB Q24H [facility] Last Admin: 05/08/17 22:06 Dose: 200 mls/hr Lorazepam (Ativan Tab(*)) 0.5 mg PO TID [facility] Last Admin: 05/09/17 15:20 Dose: 0.5 mg Melatonin (Melatonin (Nf)) 3 mg PO BEDTIME [facility] Last Admin: 05/08/17 21:33 Dose: 3 mg Metoprolol Tartrate (Lopressor Tab*) 12.5 mg PO Q12HR [facility] Last Admin: 05/09/17 08:58 Dose: 12.5 mg Nystatin (Nystatin Top Powder*) 1 applic TOPICAL TID [facility] Last Admin: 05/09/17 15:21 Dose: 1 applic Ondansetron HCl (Zofran Tab*) 4 mg PO Q4H PRN PRN Reason: NAUSEA Prednisone (Deltasone Tab*) 60 mg PO DAILY [facility] Last Admin: 05/09/17 08:57 Dose: 60 mg Ropinirole HCl (Requip Tab*) 0.5 mg PO BID [facility] Last Admin: 05/09/17 08:57 Dose: 0.5 mg Senna (Senokot Tab*) 2 tab PO BID [facility] Last Admin: 05/09/17 09:10 Dose: Not Given Vital Signs 05/08/17 05/08/17 05/08/17 15:47 19:33 19:34 Temperature 97.5 F Pulse Rate 65 105 Respiratory 16 24 24 Rate Blood Pressure 162/67 (mmHg) O2 Sat by Pulse 98 98 Oximetry 05/08/17 05/08/17 05/08/17 20:27 21:24 23:24 Temperature 98.3 F Pulse Rate 100 Respiratory 20 22 20 Rate Blood Pressure 164/59 (mmHg) O2 Sat by Pulse 95 Oximetry 05/08/17 05/09/17 05/09/17 23:50 03:14 03:25 Temperature 98.0 F 98.1 F 98.1 F Pulse Rate 99 93 85 Respiratory 22 16 22 Rate Blood Pressure 150/80 160/90 (mmHg) O2 Sat by Pulse 95 97 95 Oximetry 05/09/17 05/09/17 05/09/17 07:44 08:00 08:16 Temperature 98.6 F Pulse Rate 142 74 Respiratory 20 22 14 Rate Blood Pressure 157/83 (mmHg) O2 Sat by Pulse 95 96 Oximetry 05/09/17 05/09/17 05/09/17 08:56 11:27 13:53 Temperature 97.9 F Pulse Rate 76 79 Respiratory 24 20 14 Rate Blood Pressure 165/89 (mmHg) O2 Sat by Pulse 98 95 Oximetry 05/09/17 15:20 Temperature Pulse Rate Respiratory 18 Rate Blood Pressure (mmHg) O2 Sat by Pulse Oximetry Oxygen Devices in Use Now: Nasal Cannula Appearance: Alert, partly up in bed. In good spirits. Looks comfortable. Eyes: No Scleral Icterus Neck: NL Appearance and Movements; NL JVP, No Thyroid Enlargement, Masses Respiratory: Symmetrical Chest Expansion and Respiratory Effort, Clear to Auscultation, Clear to Percussion Cardiovascular: NL Sounds; No Murmurs; No JVD, RRR, No Edema, - Extremities: No Edema, No Clubbing, Cyanosis, - Skin: No Rash or Ulcers, No Nodules or Sclerosis, - Neurological: Alert and Oriented x 3, NL Sensation Result Diagrams: 05/07/17 05:25 05/07/17 05:25 Additional Lab and Data: Vital Signs: Temp Pulse Resp BP Pulse Ox 98.2 F 57 18 118/52 96 05/07/17 16:01 05/07/17 16:01 05/07/17 16:01 05/07/17 16:00 05/07/17 16:01 Microbiology and Other Data: Microbiology 05/07/17 00:40 Nasal Screen MRSA (PCR)(COURT) - Final Nasal Mrsa Negative 05/07/17 00:40 Influenza Types A,B Antigen (COURT) - Final Nasal Specimen received for Influenza A/B Molecular testing 05/06/17 22:34 Legionella Urinary Antigen - Final Urine Negative Legionella Streptococcus pneumoniae Ag Screen - Final Negative S. pneumo Antigen Assess/Plan/Problems-Billing Assessment: Ms. Beckham is an 81 yo female with an unknown PMH who was admitted on with sepsis secondary to UTI with possible concomitant left lower lobe pneumonia. - Patient Problems (1) Afib Current Visit: Yes Status: Acute Code(s): I48.91 - UNSPECIFIED ATRIAL FIBRILLATION SNOMED Code(s): 39646079 Comment: TSH wnl 05/06/17. Echo 05/08 showed mild LVH, diastolic dysfunction, LVEF 55-60%. - Resumed amiodarone. Continue metoprolol. (2) Sepsis Current Visit: Yes Status: Acute Comment: - Afebrile since admission, no leukocytosis, HR controlled, no tachypnea. - Suspect secondary to UTI but cxray also shows concern for LL pneumonia. - Cefuroxime 500 mg bid for 4 more days as outpt. UTI shows E. coli res to SMP- TMX and TCN, sens all others. (3) COPD (chronic obstructive pulmonary disease) Current Visit: Yes Status: Acute Code(s): J44.9 - CHRONIC OBSTRUCTIVE PULMONARY DISEASE, UNSPECIFIED SNOMED Code(s): 66804923 Comment: Quit smoking 2 yrs ago. Suspect allergic component due to moving from [place]. Prednisone taper as outpt. (4) Hypertension Current Visit: Yes Status: Acute Code(s): I10 - ESSENTIAL (PRIMARY) HYPERTENSION SNOMED Code(s): 12825043 Comment: Resume amlodipine as outpt. Status and Disposition: Discharge now. 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
--- NOTE | 2017-05-09 16:21 | PN ---
Progress Note - Progress Note Date of Service: 05/09/17 Note: Time spent on discharge 50 minutes.
[2017-05-09] MEDS: cefTRIAXone VIAL(*) 1,000 MG in NS 0.9% 50 ML* 50 ML IVPB SCH (22:57)
[2017-05-10] MEDS: Acetaminophen TAB* 325 MG PO PRN ×2 (00:51→08:08)
[2017-05-10] MEDS: Albuterol/Ipratropium NEB.SOL* Albuterol 2.5 MG/Ipratropium 0.5 MG 3 ML INH SCH ×4 (01:26→19:53)
[2017-05-10] MEDS: hydrALAZINE IV* 20 MG/ML VIAL IV PRN ×3 (02:08→16:22)
[2017-05-10] MEDS ORDERED: oxyCODONE TAB* 5 MG TAB PO ONE (04:34)
[2017-05-10] MEDS ORDERED: oxyCODONE TAB* 5 MG TAB ONE (04:39)
[2017-05-10] MEDS: Heparin VIAL(*) 5000 UNITS/ML VIAL (FIVE THOUSAND) SUBCUT SCH ×3 (05:26→20:49)
[2017-05-10] MEDS: Senna TAB PO SCH ×2 (08:08→20:45)
[2017-05-10] MEDS: LORazepam TAB(*) 0.5 MG PO SCH ×3 (08:08→20:46)
[2017-05-10] MEDS: Amiodarone TAB* 200 MG PO SCH (08:08)
[2017-05-10] MEDS: guaiFENesin ER TAB 600 MG PO SCH ×2 (08:08→20:46)
[2017-05-10] MEDS: DOXYcycline CAP(*) 100 MG PO SCH (08:08)
[2017-05-10] MEDS: Aspirin TAB* 325 MG PO SCH (08:08)
[2017-05-10] MEDS: predniSONE TAB* 50 MG PO SCH (08:08)
[2017-05-10] MEDS: Docusate CAP* 100 MG PO SCH ×2 (08:09→20:46)
[2017-05-10] MEDS: Metoprolol Tartrate TAB* 25 MG PO SCH ×2 (08:09→20:47)
[2017-05-10] MEDS: Ropinirole TAB* 0.5 MG TAB PO SCH ×2 (08:09→20:46)
[2017-05-10] MEDS: Famotidine TAB* 20 MG PO SCH (08:09)
[2017-05-10] MEDS: FLUoxetine CAP* 10 MG PO SCH (08:09)
[2017-05-10] MEDS: Nystatin TOP POWDER* 15 GM BTL TOPICAL SCH ×3 (10:20→20:48)
--- NOTE | 2017-05-10 10:38 | DS ---
DISCHARGE SUMMARY: DATE OF ADMISSION: 05/06/17 DATE OF DISCHARGE: 05/09/17 HOSPITAL COURSE: This 81-year-old woman presented with complaint of lethargy and fever. When EMS came she was lethargic and hypoxic, her temperature was elevated. I question the number in the typed roofing supervisor of the dictated history. The temperature was listed as 40.4 degree centigrade. Chest x-ray showed a small left basilar infiltrate. I note the patient quit smoking 2 years ago. The next 2 temperatures were quite elevated as well. By 2323 hours, on the first hospital day, her temperature was down to 101.3, the second hospital day it started out at midnight as 101.1, but gradually fell to 100.2 that hospital day, temperature was below 99 for the last 16 hours before discharge. I gave her prednisone as well for some wheezing. I suspect since her problem started pretty much after she moved here from [place] 2 weeks ago that there was an allergic component. She seemed to be responding well to prednisone. On the day of discharge her O2 saturation on room air while resting quietly in bed and actually being asleep was 90%. She felt much better. She was mentating well. She was able to walk into the [facility] with physical therapy. She walked 60 feet with the therapist. The patient will finish her treatment with 7 days of cefuroxime and a 5-day taper of prednisone. FINAL DIAGNOSES: 1. History of paroxysmal atrial fibrillation. 2. Sepsis due to pneumonia. 3. Chronic obstructive pulmonary disease, status post quitting smoking 2 years ago. 4. Hypertension. DISCHARGE MEDICATIONS: 1. Metoprolol 25 mg one-half tablet twice daily. 2. Nystatin topical powder affected areas t.i.d. 3. Ropinirole 0.5 mg b.i.d. for restless legs. 4. Senna 2 tablets b.i.d. 5. Cefuroxime 500 mg b.i.d. for 7 days. I will discuss with the [id number] when she arrives to picker packer the patient providing her with a primary care provider. [id number]/[facility] #: [id number] MTDD
--- NOTE | 2017-05-10 14:05 | PN ---
Subjective Date of Service: 05/10/17 Interval History: Pt examined today at the bedside. She states that she is having a headache typical of when she has a MARC. She admits to nausea and vomiting. Denies abdominal pain. Denies fever or chills. Denies sob or chest pain. ROS-denies fever, denies chills, denies abdominal pain, denies chest pain, denies sob, denies lightheadedness, denies loc, admits to nausea and vomiting, review of 11 systems completed all others negative, Objective Active Medications: Acetaminophen (Tylenol Tab*) 650 mg PO Q6H PRN PRN Reason: FEVER/PAIN Last Admin: 05/10/17 08:08 Dose: 650 mg Albuterol/Ipratropium (Duoneb (Albuterol 2.5 Mg/Ipratropium 0.5 Mg)) 1 neb INH [id number] AWAKE [facility] Last Admin: 05/10/17 13:44 Dose: Not Given Amiodarone HCl (Cordarone Tab*) 200 mg PO DAILY [facility] Last Admin: 05/10/17 08:08 Dose: 200 mg Aspirin (Aspirin Tab*) 325 mg PO DAILY [facility] Last Admin: 05/10/17 08:08 Dose: 325 mg Docusate Sodium (Colace Cap*) 100 mg PO BID [facility] Last Admin: 05/10/17 08:09 Dose: 100 mg Famotidine (Pepcid Tab*) 20 mg PO DAILY [facility] Last Admin: 05/10/17 08:09 Dose: 20 mg Fluoxetine HCl (Prozac Cap*) 10 mg PO DAILY [facility] Last Admin: 05/10/17 08:09 Dose: 10 mg Guaifenesin (Mucinex*) 1,200 mg PO BID [facility] Last Admin: 05/10/17 08:08 Dose: 1,200 mg Heparin Sodium (Porcine) (Heparin Vial(*)) 5,000 units SUBCUT Q8HR [facility] Last Admin: 05/10/17 13:36 Dose: 5,000 units Heparin Sodium (Porcine) (Heparin Flush Picc/Ml/Cvc(*)) 1 ml FLUSH 0600,1800 [facility] PRN Reason: Protocol Last Admin: 05/10/17 05:33 Dose: Not Given Hydralazine HCl (Apresoline Iv*) 10 mg IV Q4H PRN PRN Reason: Systolic >170 Last Admin: 05/10/17 08:12 Dose: 10 mg Sodium Chloride (Ns 0.9% 1000 Ml*) 1,000 mls @ 85 mls/hr IV PER RATE [facility] Last Admin: 05/09/17 22:55 Dose: 85 mls/hr Ceftriaxone Sodium 1,000 mg/ (Sodium Chloride) 50 mls @ 200 mls/hr IVPB Q24H [facility] Last Admin: 05/09/17 22:57 Dose: 200 mls/hr Doxycycline Hyclate 100 mg/ (Sodium Chloride) 250 mls @ 250 mls/hr IVPB Q12H [facility] Lorazepam (Ativan Tab(*)) 0.5 mg PO TID [facility] Last Admin: 05/10/17 13:34 Dose: 0.5 mg Metoprolol Tartrate (Lopressor Tab*) 25 mg PO Q12HR [facility] Nystatin (Nystatin Top Powder*) 1 applic TOPICAL TID [facility] Last Admin: 05/10/17 13:39 Dose: 1 applic Ondansetron HCl (Zofran Tab*) 4 mg PO Q4H PRN PRN Reason: NAUSEA Last Admin: 05/10/17 05:30 Dose: 4 mg Prednisone (Deltasone Tab*) 50 mg PO DAILY [facility] Last Admin: 05/10/17 08:08 Dose: 50 mg Ropinirole HCl (Requip Tab*) 0.5 mg PO BID [facility] Last Admin: 05/10/17 08:09 Dose: 0.5 mg Senna (Senokot Tab*) 2 tab PO BID [facility] Last Admin: 05/10/17 08:08 Dose: 2 tab Vital Signs 05/09/17 05/09/17 05/09/17 15:20 17:20 19:41 Temperature 98.2 F Pulse Rate 85 85 Respiratory 16 18 18 Rate Blood Pressure 168/85 (mmHg) O2 Sat by Pulse 94 97 Oximetry 05/09/17 05/09/17 05/09/17 19:54 20:00 20:30 Temperature 98.3 F Pulse Rate 97 Respiratory 16 16 16 Rate Blood Pressure 181/94 (mmHg) O2 Sat by Pulse 96 Oximetry 05/09/17 05/10/17 05/10/17 22:30 00:42 01:56 Temperature 97.9 F Pulse Rate 90 Respiratory 16 16 Rate Blood Pressure 182/84 175/90 (mmHg) O2 Sat by Pulse 93 Oximetry 05/10/17 05/10/17 05/10/17 04:43 06:43 08:00 Temperature Pulse Rate Respiratory 16 16 20 Rate Blood Pressure (mmHg) O2 Sat by Pulse Oximetry 05/10/17 05/10/17 05/10/17 08:08 08:19 10:08 Temperature 97.4 F Pulse Rate 51 Respiratory 20 24 18 Rate Blood Pressure 177/71 (mmHg) O2 Sat by Pulse 92 Oximetry 05/10/17 05/10/17 12:22 13:34 Temperature 99.0 F Pulse Rate 90 Respiratory 24 18 Rate Blood Pressure 140/70 (mmHg) O2 Sat by Pulse Oximetry Oxygen Devices in Use Now: Nasal Cannula Appearance: 81 y/o female patient sitting in bed NAD, Eyes: No Scleral Icterus, PERRLA Ears/Nose/Mouth/Throat: NL Teeth, Lips, Gums Neck: NL Appearance and Movements; NL JVP Respiratory: Symmetrical Chest Expansion and Respiratory Effort, - - crackles noted in left base, Cardiovascular: NL Sounds; No Murmurs; No JVD Abdominal: NL Sounds; No Tenderness; No Distention Extremities: No Edema Skin: No Rash or Ulcers Neurological: Alert and Oriented x 3 Lines/Tubes/Other Access: Clean, Dry and Intact Peripheral IV Result Diagrams: 05/07/17 05:25 05/07/17 05:25 Additional Lab and Data: Vital Signs: Temp Pulse Resp BP Pulse Ox 98.2 F 57 18 118/52 96 05/07/17 16:01 05/07/17 16:01 05/07/17 16:01 05/07/17 16:00 05/07/17 16:01 Microbiology and Other Data: Microbiology 05/07/17 00:40 Nasal Screen MRSA (PCR)(COURT) - Final Nasal Mrsa Negative 05/07/17 00:40 Influenza Types A,B Antigen (COURT) - Final Nasal Specimen received for Influenza A/B Molecular testing 05/06/17 22:34 Legionella Urinary Antigen - Final Urine Negative Legionella Streptococcus pneumoniae Ag Screen - Final Negative S. pneumo Antigen Assess/Plan/Problems-Billing Assessment: Ms. Beckham is an 81 yo female with an unknown PMH who was admitted on with sepsis secondary to UTI with possible concomitant left lower lobe pneumonia. - Patient Problems (1) Afib Current Visit: Yes Status: Acute Priority: High Comment: TSH wnl 05/06/17. Echo 05/08 showed mild LVH, diastolic dysfunction, LVEF 55-60%. - Resumed amiodarone. Continue metoprolol increase dose today to 25mg bid, (2) COPD (chronic obstructive pulmonary disease) Current Visit: Yes Status: Acute Priority: High Comment: Quit smoking 2 yrs ago. Suspect allergic component due to moving from [place]. Prednisone taper as outpt. (3) DVT prophylaxis Current Visit: Yes Status: Acute Priority: High Comment: - Heparin SQ. (4) Depression Current Visit: Yes Status: Acute Priority: High Comment: - Continue fluoxetine. (5) Full code status Current Visit: Yes Status: Acute Priority: High (6) Hypertension Current Visit: Yes Status: Acute Priority: High Comment: Increase beta debbie today. Noted AM blood pressures are elevated will increase beta debbie, may need to continue norvasc, (7) Otitis media Current Visit: Yes Status: Acute Priority: High Comment: - Right ear effusion noted, patient notes hearing loss as well. - Continue ceftriaxone. (8) Pneumonia Current Visit: Yes Status: Acute Priority: High Comment: - LL pneumonia noted on cxray, however not hypoxic and no clear report of cough at home. - Continue ceftriaxone, continue doxycycline given significant sinus pauses as azith prolongs Qt interval. Stop solumedrol change to po prednisone - O2 as needed. (9) Sepsis Current Visit: Yes Status: Acute Priority: High Comment: - Afebrile since admission, no leukocytosis, HR controlled, no tachypnea. - Suspect secondary to UTI but cxray also shows concern for LL pneumonia. - continue IV abx, (10) Sinus pause Current Visit: Yes Status: Acute Code(s): I45.5 - OTHER SPECIFIED HEART BLOCK SNOMED Code(s): 4534644 Comment: - 2 second pauses noted on telemetry in the AM. - Resume amiodarone. Stop zofran and azithromcyin. - Held metoprolol initially but will add back in low dose to avoid rebound tachycardia, decrease from 100 BID to 12.5 BID. (11) UTI (urinary tract infection) Current Visit: Yes Status: Acute Priority: High Comment: - Continue ceftriaxone, cx show ecoli and aerococcus, (12) Nausea & vomiting Current Visit: Yes Status: Acute Priority: High Comment: ABd soft flat non tender, suspect r/t doxy po, will change to iv, prn reglan (13) Headache Current Visit: Yes Status: Acute Priority: High Comment: Prn tylenol, states that headache has been going on for two days, progressively worse, checking ct brain, Status and Disposition: Canceling D/c today, given patient having n/v suspect r/t doxy, will given compazine and given h/a ct brain ordered, will keep today repeat labs,
[2017-05-10] MEDS ORDERED: Metoclopramide IV* 5 MG/ML 2 ML VIAL IV PRN (14:11)
[2017-05-10] MEDS ORDERED: PROCHLORPERAZINE INJ 5 MG/ML 2 ML VIAL IV PRN (14:14)
--- NOTE | 2017-05-10 15:11 | RAD ---
INDICATION: Headache COMPARISON: Similar CT examination dated May 06, 2017 TECHNIQUE: Contiguous axial sections of the brain were obtained from the skull base to the vertex without contrast. FINDINGS: The ventricles, cisterns and sulci are within normal limits. There is mild periventricular and subcortical white matter hypoattenuation most consistent with chronic microvascular disease unchanged from the prior CT examination. Focal hypodensity at the left basal ganglia could BE a chronic lacunar infarction. The grande-white matter differentiation is adequately maintained and there is no sulcal effacement. No significant focal abnormality or mass effect is present. There is no evidence for intracranial hemorrhage. No significant focal osseous abnormality is present. The visualized paranasal sinuses are adequately aerated. There is again seen near complete fusion of the right mastoid air cells. Left mastoid air cells are adequately aerated. IMPRESSION: 1. Right-sided mastoid air cell effusion similar in appearance to the prior CT the brain. Please correlate to signs or symptoms of mastoiditis. 2. Evidence of chronic microvascular disease similar in appearance to the prior CT of the brain.
[2017-05-10] MEDS: DOXYcycline IV* 100 MG in NS 0.9% 250 ML* 250 ML IVPB SCH (15:20)
[2017-05-10 15:22] LABS: BUN/Creatinine Ratio 25.6 (8-20); EGFR African American 77.5 (>60); EGFR Non-African American 60.2 (>60); Potassium 4.4 mmol/L (3.5-5.0)
[2017-05-10] MEDS ORDERED: Ketorolac INJ* 15 MG/ML 1 ML VIAL IV PUSH ONE (15:43)
[2017-05-10] MEDS: Butalb/Acetamin/Caff TAB* 1 TAB PO ONE ×2 (15:43→18:29)
[2017-05-10] MEDS ORDERED: Scopolamine 1.5 mg* PATCH TRANSDERM SCH (16:00)
[2017-05-10 16:32] LABS: Hematocrit 41 % (35-47); Hemoglobin 13.6 g/dl (12.0-16.0); Mean Corpuscular HGB Conc 33 g/dl (31-36); Mean Corpuscular Hemoglobin 29 pg (27-31); Mean Corpuscular Volume 87 fL (80-97); Mean Platelet Volume 9 um3 (7.4-10.4); Red Blood Count 4.67 10^6/ul (4.0-5.4); Red Cell Distribution Width 16 % (10.5-15); White Blood Count 9.4 10^3/ul (3.5-10.8)
[2017-05-10 16:43] LABS: Add Diff/Slide Review? Slide Review Added; Comments Flag Yes
[2017-05-10] MEDS ORDERED: Morphine INJ* 2 MG/ML 1 ML SYRINGE (TWO MG - NEW SYRINGE VERSION) ONE (17:19)
[2017-05-10] MEDS: NS 0.9% 1000 ML* 1,000 ML IV SCH (19:54)
[2017-05-11] MEDS: cefTRIAXone VIAL(*) 1,000 MG in NS 0.9% 50 ML* 50 ML IVPB SCH (00:04)
[2017-05-11] MEDS: Albuterol/Ipratropium NEB.SOL* Albuterol 2.5 MG/Ipratropium 0.5 MG 3 ML INH SCH ×2 (01:15→07:37)
[2017-05-11] MEDS: DOXYcycline IV* 100 MG in NS 0.9% 250 ML* 250 ML IVPB SCH (03:06)
[2017-05-11 05:22] LABS: Hematocrit 34 % (35-47); Hemoglobin 11.2 g/dl (12.0-16.0); Mean Corpuscular HGB Conc 33 g/dl (31-36); Mean Corpuscular Hemoglobin 29 pg (27-31); Mean Corpuscular Volume 88 fL (80-97); Mean Platelet Volume 9 um3 (7.4-10.4); Red Blood Count 3.82 10^6/ul (4.0-5.4); Red Cell Distribution Width 17 % (10.5-15); White Blood Count 7.9 10^3/ul (3.5-10.8)
[2017-05-11 05:28] LABS: Add Diff/Slide Review? Slide Review Added; Comments Flag Yes
[2017-05-11 05:32] LABS: BUN/Creatinine Ratio 22.4 (8-20); Calcium 8.3 mg/dL (8.6-10.3); EGFR African American 57.8 (>60); Potassium 3.7 mmol/L (3.5-5.0)
[2017-05-11] MEDS: Heparin VIAL(*) 5000 UNITS/ML VIAL (FIVE THOUSAND) SUBCUT SCH ×2 (06:04→13:54)
[2017-05-11] MEDS: guaiFENesin ER TAB 600 MG PO SCH (08:56)
[2017-05-11] MEDS: predniSONE TAB* 50 MG PO SCH (08:57)
[2017-05-11] MEDS: Ropinirole TAB* 0.5 MG TAB PO SCH (08:57)
[2017-05-11] MEDS: LORazepam TAB(*) 0.5 MG PO SCH ×2 (08:57→13:53)
[2017-05-11] MEDS: Aspirin TAB* 325 MG PO SCH (08:57)
[2017-05-11] MEDS: Amiodarone TAB* 200 MG PO SCH (08:57)
[2017-05-11] MEDS: Senna TAB PO SCH (08:57)
[2017-05-11] MEDS: Docusate CAP* 100 MG PO SCH (08:57)
[2017-05-11] MEDS: Metoprolol Tartrate TAB* 25 MG PO SCH (08:58)
[2017-05-11] MEDS: FLUoxetine CAP* 10 MG PO SCH (08:58)
[2017-05-11] MEDS: Famotidine TAB* 20 MG PO SCH (08:58)
[2017-05-11] MEDS: NS 0.9% 1000 ML* 1,000 ML IV SCH (10:05)
[2017-05-11] MEDS: Nystatin TOP POWDER* 15 GM BTL TOPICAL SCH (12:22)
[2017-05-11 12:26] VITALS: BP 106/39
--- NOTE | 2017-05-11 15:19 | DS ---
CC: Margaux Barr NP * DISCHARGE SUMMARY: PRIMARY CARE PHYSICIAN: Margaux Barr NP, from [facility]. DATE OF ADMISSION: 05/06/17. DATE OF DISCHARGE: 05/11/17. DISCHARGE DIAGNOSES: 1. Pneumonia. 2. Otitis media. 3. Possible chronic obstructive pulmonary disease exacerbation. 4. Paroxysmal atrial fibrillation. 5. Acute hypoxemic respiratory failure requiring oxygen at discharge at 2 L. SECONDARY DIAGNOSIS: Difficult to obtain. PAST MEDICAL HISTORY: 1. The patient has history of hypertension. 2. History of paroxysmal atrial fibrillation in the past. 3. History of depression. MEDICATIONS AT DISCHARGE: Include: 1. Amiodarone 200 mg daily. 2. Amlodipine 5 mg daily. 3. Aspirin 325 mg daily. 4. Cefuroxime 500 mg b.i.d. for 7 days. 5. Pepcid 20 mg b.i.d. 6. Prozac 10 mg daily. 7. Metoprolol tartrate 25 mg every 12 hours. 8. Nystatin powder on a p.r.n. basis. 9. Risperdal 0.5 mg at bedtime. 10. Requip 0.5 mg b.i.d. 11. Senokot 2 tablets b.i.d. 12. Prednisone taper with 50 mg for 2 days, then 30 mg for 2 days, then 20 mg for 2 days, then 10 mg for 2 days, then stop. LABORATORY DATA: On 05/11/17, white blood cell count 7.9, hemoglobin 11.2, hematocrit 34, and platelets of 199. Sodium was 138, potassium 3.7, chloride 109, carbon dioxide 22, BUN 26, creatinine 1.16. Brain CT obtained on 05/10/17 when the patient had headache that resolved by the time of discharge included impression "right sided mastoid air cell effusion , similar to appearance on the prior CT brain. Please correlate with signs and symptoms of mastoiditis. Evidence of chronic microvascular disease similar to appearance on the prior CT of the brain." Transthoracic echocardiogram obtained on 05/08/17 showed EF of 55% to 60% with normal left ventricular systolic function and impaired relaxation. There was trace to mild mitral regurgitation and tricuspid regurgitation. There was evidence of mild to moderate pulmonary hypertension and mild pulmonary regurgitation. Abdomen and pelvis CT obtained on 05/06/17 impression "nonobstructive bilateral renal calculi. There is dilatation of the renal pelvises and calices suggestive of chronic ureteropelvic junction obstructions. Status post cholecystectomy and hysterectomy." HOSPITALIZATION COURSE: Leonor Beckham is a 81-year-old female who is a very poor historian and she was unable to provide the providers at the hospital with her primary care provider's name in [place] or their address. The patient moved from [place] two weeks prior to her admission. She has a history of hypertension and paroxysmal atrial fibrillation. She presented to the hospital complaining of shortness of breath. She was diagnosed with acute otitis media and pneumonia. She was treated with broad spectrum antibiotics with good results. There was also a question of COPD exacerbation. She was placed transiently on steroids and is going to be discharged on taper. Her urine cultures were positive for E. coli UTI and she was treated with third generation cephalosporin. During her evaluation on telemetry monitored bed, she was noted to be in paroxysmal atrial fibrillation, which as per the patient she has a history of. Prior to her discharge, we discussed possibility of anticoagulation and the risk of stroke with her COSTA scores approximately 5% to 6%. It was also discussed with the patient's daughter. Both, the patient and the patient's daughter requested for the patient to be evaluated in regards to possibility of anticoagulation by her primary care provider next week. They did not want to make decision in regards to anticoagulation at discharge, but they are aware of increased risk of stroke. Unfortunately, the patient still required 2 L oxygen nasal cannula at the time of discharge and was set up with a home care agency to have it provided to the patient upon discharge. PHYSICAL EXAMINATION: At the time of discharge, blood pressure of 106/39, heart rate of 73 and regular, respiratory rate 20, oxygen saturation 94% on 2 L of oxygen via nasal cannula, temperature is 98.6. General: The patient is a pleasant 81- year-old female who is in no acute distress. The patient is alert , awake, and oriented x3, but very poor historian and very poor recall. HEENT: Head, atraumatic and normocephalic. Eyes, pupils are equal and reactive to light and accommodation. Oropharynx clear. Mucosa moist. Neck: Supple. No JVD. No bruits bilaterally. Cardiovascular: Regular rate and rhythm. No murmurs. Respiratory: Clear to auscultation bilaterally. Abdomen: Soft, nontender. Bowel sounds present in all 4 quadrants. Extremities: There is no edema. Pulses +2 bilaterally. No clubbing or cyanosis. Neuro Evaluation: Speech clear. Cranial nerves II through XII grossly intact. Motor strength is 5 /5 bilaterally. At discharge, the patient is recommended to follow up with her primary care provider with a set up appointment they already have for next week. The patient is also recommended to continue her oxygen at 2 L. The patient is to ambulate with a rolling walker. [id number]/[facility] #: [id number] [facility]
== END 2017-05-11 14:57 | disposition home or self-care (01) | DRG 871 ==
LOC: ED 19:33 → ICU 22:06 → MEDTELE 05-07 20:00
PROVIDERS: ADMIT Hospitalist; ATTEND Internal Medicine
PROC: 02HV33Z Insertion of Infusion Device into Superior Vena Cava, Percutaneous Approach (ICD-10-PCS; principal; 2017-05-07)
DX: A41.9 Sepsis, unspecified organism (principal); J18.9 Pneumonia, unspecified organism; J96.01 Acute respiratory failure with hypoxia; J44.1 Chronic obstructive pulmonary disease with (acute) exacerbation; I48.0 Paroxysmal atrial fibrillation; I27.2 Other secondary pulmonary hypertension; I49.5 Sick sinus syndrome; N39.0 Urinary tract infection, site not specified; I10 Essential (primary) hypertension; F32.9 Major depressive disorder, single episode, unspecified; I08.1 Rheumatic disorders of both mitral and tricuspid valves; N20.0 Calculus of kidney; R40.2412 Glasgow coma scale score 13-15, at arrival to emergency department; H66.91 Otitis media, unspecified, right ear; H91.91 Unspecified hearing loss, right ear; B96.20 Unspecified Escherichia coli [E. coli] as the cause of diseases classified elsewhere; R11.2 Nausea with vomiting, unspecified; R51 Headache; Z99.81 Dependence on supplemental oxygen; Z79.82 Long term (current) use of aspirin; Z90.49 Acquired absence of other specified parts of digestive tract; Z90.710 Acquired absence of both cervix and uterus; Z98.42 Cataract extraction status, left eye; Z88.0 Allergy status to penicillin; Z87.891 Personal history of nicotine dependence
CPT/HCPCS: 36415; 70450; 71010; 74176; 80048; 80053; 80320; 80329; 81003; 81015; 82140; 82550; 82553; 83605; 83690; 83735; 83880; 84443; 84484; 85025; 85610; 85730; 86140; 87040; 87077; 87086; 87186; 87502; 87641; 87899; 93005; 93306; 94640; 94760; A9270-GY; G0480; J0360; J0456; J0692; J0696; J0780; J1644; J1885; J2270; J2920; J7512

== ENCOUNTER 2018-07-14 21:57 | Inpatient (IN) | payer MEDICARE, OTHER ==
--- NOTE | 2018-07-14 22:31 | ED ---
Shortness of Breath - HPI Summary HPI Summary: This patient is a 82 year old F brought in by EMS to [facility] c/o SOB that was worse tonight. She states she has had a bad cold for a month and a half. The sx associated with her cold are back pain, chest congestion, and muscular tremors. The patient rates the pain 8/10 in severity. Patient denies fevers. Hx COPD with O2 use at home. - History of Current Complaint Chief Complaint: EDShortnessOfBreath Time Seen by Provider: 07/14/18 22:18 Hx Obtained From: Patient Onset/Duration: Lasting Hours, Still Present Timing: Constant Current Severity: Moderate Dyspnea At: Rest Associated Signs & Symptoms: Negative - fever - Allergy/Home Medications Allergies/Adverse Reactions: Allergies Allergy/AdvReac Type Severity Reaction Status Date / Time MS Penicillins [PCN] Allergy Unknown Verified 06/13/17 13:18 Reaction Details Home Medications: Home Medications Gabapentin CAP(*) 200 mg PO BID 07/14/18 [History Confirmed 07/14/18] Hydrochlorothiazide TAB* 12.5 mg PO DAILY 07/14/18 [History Confirmed 07/14/18] Lisinopril TAB* 20 mg PO DAILY 07/14/18 [History Confirmed 07/14/18] Metoprolol Tartrate TAB* [Lopressor TAB*] 25 mg PO BID 07/14/18 [History Confirmed 07/14/18] Rivaroxaban TAB(*) [Xarelto 15 mg(*)] 15 mg PO DAILY 07/14/18 [History Confirmed 07/14/18] oxyCODONE TAB* 5 mg PO DAILY 07/14/18 [History Confirmed 07/14/18] PMH/Surg Hx/FS Hx/Imm Hx Cardiovascular History: Reports: Hx Hypertension, Other Cardiovascular Problems/ Disorders - AFIB Respiratory History: Reports: Hx Chronic Obstructive Pulmonary Disease (COPD), Hx Seasonal Allergies Comment Only: Hx Asthma - unknown GI History: Denies: Hx Gastrointestinal Bleed Musculoskeletal History: Reports: Hx Arthritis, Hx Back Problems Sensory History: Reports: Hx Contacts or Glasses Denies: Hx Legally Blind, Hx Deafness, Hx Hearing Aid Opthamlomology History: Reports: Hx Contacts or Glasses Denies: Hx Legally Blind Neurological History: Reports: Hx Migraine Denies: Hx CVA Psychiatric History: Denies: Hx Oppositional [place] Disorder - Surgical History Surgery Procedure, Year, and Place: Appendectomy years ago she states; Hysterectomy years ago Infectious Disease History: No Infectious Disease History: Denies: Traveled Outside the [place] in Last 30 Days - Family History Known Family History: Positive: Other - mother and father of "old age" Negative: Blood Disorder - Social History Alcohol Use: None Substance Use Type: Reports: None Smoking Status (MU): Former Smoker Type: Cigarettes Have You Smoked in the Last Year: No Review of Systems Negative: Fever Positive: Other - chest congestion Musculoskeletal: Negative - back pain Positive: Other - muscular tremors. All Other Systems Reviewed And Are Negative: Yes Physical Exam - Summary Physical Exam Summary: VITAL SIGNS: Reviewed. GENERAL: Patient is a well-developed and nourished female who is lying comfortable in the stretcher. Patient is not in any acute respiratory distress. Patient appears anxious HEAD AND FACE: No signs of trauma. No ecchymosis, hematomas or skull depressions. No sinus tenderness. EYES: PERRLA, EOMI x 2, No injected conjunctiva, no nystagmus. EARS: Hearing grossly intact. Ear canals and tympanic membranes are within normal limits. MOUTH: Oropharynx within normal limits. NECK: Supple, trachea is midline, no adenopathy, no JVD, no carotid bruit, no c- spine tenderness, neck with full ROM. CHEST: Symmetric, no tenderness at palpation LUNGS: decreased breath sounds bilaterally. There are inspiratory and expiatory wheezes. Bibasilar rales. CVS: Regular rate and rhythm, S1 and S2 present, no murmurs or gallops appreciated. ABDOMEN: Soft, non-tender. No signs of distention. No rebound no guarding, and no masses palpated. Bowel sounds are normal. EXTREMITIES: FROM in all major joints. Bilateral trace pedal edema. NEURO: Alert and oriented x 3. No acute neurological deficits. Speech is normal and follows commands. SKIN: Dry and warm Triage Information Reviewed: Yes Vital Signs On Initial Exam: Initial Vitals Temp Pulse Resp BP Pulse Ox 98.6 F 105 22 123/91 99 07/14/18 21:59 07/14/18 21:59 07/14/18 21:59 07/14/18 21:59 07/14/18 21:59 Vital Signs Reviewed: Yes Diagnostics - Vital Signs Vital Signs Temp Pulse Resp BP Pulse Ox 07/14/18 21:59 98.6 F 105 22 123/91 99 - Laboratory Result Diagrams: 07/14/18 22:56 07/14/18 22:56 Lab Statement: Any lab studies that have been ordered have been reviewed, and results considered in the medical decision making process. - Radiology CXR Radiology Interpretation Completed By: ED Physician Summary of Radiographic Findings: hisense left lung base concerning for infiltrate. Pending official report. - EKG 2243 Cardiac Rate: Tachycardia EKG Rhythm: Sinus Tachycardia - at 108 BPM Summary of EKG Findings: Normal axis. Normal interval. No ischemic changes Course/Dx - Course Assessment/Plan: This patient is a 82 year old F brought in by EMS to [facility] c/o SOB that was worse tonight. She states she has had a bad cold for a month and a half. The sx associated with her cold are back pain, chest congestion, and muscular tremors. The patient rates the pain 8/10 in severity. Patient denies fevers. Hx COPD with O2 use at home. An EKG reveals Normal axis. Normal interval. No ischemic changes. CXR reveals, hisense left lung base concerning for infiltrate. Pending official report. Bloodwork obtained. In the ED course the patient was given albuterol, duoneb, ativan, and solumedrol. Dx COPD PNA. We discussed patient care with Dr. Card and she has accepted the patient for admission. Patient will be admitted. The patient is agreeable with this plan. - Diagnoses Provider Diagnoses: COPD (chronic obstructive pulmonary disease), PNA (pneumonia) - Physician Notifications Discussed Care of Patient With: Cinthia Card Time Discussed With Above Provider: 23:47 Instructed by Provider To: Admit As Inpatient Discharge - Sign-Out/Discharge Documenting (check all that apply): Patient Departure - admitted - Discharge Plan Condition: Fair Disposition: ADMITTED TO [facility] Referrals: Rufino Dickerson MD [Primary Care Provider] - - Attestation Statements Document Initiated by Scribe: Yes Documenting Scribe: Hermes Rocha Provider For Whom Rosemaryibe is Documenting (Include Credential): Sammi Rose MD Scribe Attestation: Hermes Perry , scribed for Sammi Rose MD on 07/14/18 at [id number]. Status of Scribe Document: Ready
[2018-07-14] MEDS ORDERED: Albuterol/Ipratropium NEB.SOL* Albuterol 2.5 MG/Ipratropium 0.5 MG 3 ML INH ONE (22:36)
[2018-07-14] MEDS ORDERED: methylPREDNISolone 125 MG* 2 ML VIAL IV ONE (22:36)
[2018-07-14] MEDS ORDERED: Magnesium Sulfate 2 GM IV* 2 GM/50 ML BAG IVPB ONE (22:38)
[2018-07-14] MEDS ORDERED: Levofloxacin 750 MG IVPREMIX(* 750 MG/150 ML BAG IVPB ONE (23:12)
[2018-07-14 23:18] LABS: ABS Basophils 0 10^3/ul (0-0.2); ABS Eosinophils 0.4 10^3/ul (0-0.6); ABS Lymphocytes 1.9 10^3/ul (1.0-4.8); ABS Monocytes 1.3 10^3/ul (0-0.8); ABS Neutrophils 5.4 10^3/ul (1.5-7.7); ABS Nucleated RBC 0 10^3/ul; Hematocrit 39 % (35-47); Lymphocyte % 21.2 %; Mean Corpuscular HGB Conc 34 g/dl (31-36); Mean Corpuscular Hemoglobin 33 pg (27-31); Mean Corpuscular Volume 96 fL (80-97); Mean Platelet Volume 8.2 fL (7.4-10.4); Nucleated Red Blood Cells % 0; Platelet Count 260 10^3/ul (150-450); Red Cell Distribution Width 16 % (10.5-15)
[2018-07-14] MEDS ORDERED: Albuterol 2.5 MG/3 ML NEB.SOL* (0.083%) INH ONE (23:19)
[2018-07-14] MEDS: Albuterol 2.5 MG/3 ML NEB.SOL* (0.083%) INH SCH ×2 (23:21→23:45)
[2018-07-14 23:26] LABS: INR 0.98 (0.77-1.02)
[2018-07-14 23:38] LABS: EGFR Non-African American 36.1 (>60)
[2018-07-14] MEDS ORDERED: LORazepam INJ* 2 MG/ML 1 ML VIAL IV PUSH ONE (23:47)
[2018-07-15] MEDS ORDERED: Albuterol 2.5 MG/3 ML NEB.SOL* (0.083%) INH PRN (00:32)
[2018-07-15] MEDS ORDERED: NS 0.9% 1000 ML* 1,000 ML IV ONE (00:34)
[2018-07-15] MEDS ORDERED: Docusate CAP* 100 MG PO PRN (00:35)
[2018-07-15] MEDS ORDERED: Al Hydrox/Mg Hydrox/Simet LIQ* 30 ML UDC PO PRN (00:35)
[2018-07-15] MEDS ORDERED: Acetaminophen TAB* 325 MG PO PRN (00:35)
[2018-07-15] MEDS ORDERED: Senna TAB PO PRN (00:35)
[2018-07-15] MEDS ORDERED: oxyCODONE TAB* 5 MG TAB ONE (01:31)
[2018-07-15] MEDS: oxyCODONE TAB* 5 MG TAB PO PRN ×3 (01:32→14:01)
[2018-07-15] MEDS: Mometasone/Formoter 200/5 MDI INH SCH ×3 (02:50→20:14)
[2018-07-15] MEDS: NS 0.9% 1000 ML* 1,000 ML IV SCH ×3 (03:05→21:56)
[2018-07-15] MEDS: Morphine VIAL* 4 MG/ML VIAL (1 ml vial) IV PRN ×3 (03:30→19:16)
[2018-07-15] MEDS: Metoprolol Tartrate TAB* 25 MG PO SCH ×3 (03:32→21:07)
[2018-07-15] MEDS: Gabapentin CAP(*) 100 MG PO SCH ×3 (03:33→21:07)
[2018-07-15] MEDS ORDERED: Melatonin 3 MG TAB PO PRN (03:39)
[2018-07-15] MEDS: Nystatin TOP POWDER* 15 GM BTL TOPICAL SCH ×3 (04:27→21:06)
[2018-07-15] MEDS ORDERED: Metoprolol Tartrate IV* 1 MG/ML 5 ML VIAL IV PRN (06:26)
[2018-07-15 07:44] LABS: EGFR Non-African American 39.3 (>60)
[2018-07-15 08:53] LABS: ABS Basophils 0 10^3/ul (0-0.2); ABS Eosinophils 0 10^3/ul (0-0.6); ABS Lymphocytes 0.6 10^3/ul (1.0-4.8); ABS Monocytes 0.2 10^3/ul (0-0.8); ABS Neutrophils 6.2 10^3/ul (1.5-7.7); ABS Nucleated RBC 0 10^3/ul; Eosinophil % 0.1 %; Hematocrit 33 % (35-47); Hemoglobin 11.2 g/dl (12.0-16.0); Lymphocyte % 9.1 %; Mean Corpuscular HGB Conc 34 g/dl (31-36); Mean Corpuscular Hemoglobin 32 pg (27-31); Mean Corpuscular Volume 97 fL (80-97); Mean Platelet Volume 8.3 fL (7.4-10.4); Nucleated Red Blood Cells % 0; Platelet Count 212 10^3/ul (150-450); Red Blood Count 3.46 10^6/ul (4.00-5.40); Red Cell Distribution Width 16 % (10.5-15)
[2018-07-15] MEDS: predniSONE TAB* 20 MG PO SCH (09:03)
--- NOTE | 2018-07-15 09:40 | HP ---
CC: Dr. Dickerson * HISTORY AND PHYSICAL: DATE OF ADMISSION: 07/15/18 TIME OF EVALUATION: 0000. PRIMARY CARE PHYSICIAN: Rufino Dickerson MD CHIEF COMPLAINT: Shortness of breath. HISTORY OF PRESENT ILLNESS: This is an 82-year-old female with a past medical history of COPD, atrial fibrillation, on anticoagulation, who presented to the emergency room with worsening symptoms of cough, chest congestion, shortness of breath, and chest pain. The patient states for the past 1-1/2 months, she has been suffering from cold and congestion. She has been going to see her primary care physician and she states she gets a prescription for antibiotics for a week , she gets slightly better, then she gets worse again, she goes back to her primary care physician, gets another week of antibiotics, gets a little bit better, symptoms recur, she goes back on antibiotics. She states she did this 3 times of antibiotics. She finally got to the point where she was very frustrated and concerned about not really improving well and that she came to the emergency room for further evaluation. She has not been on steroids for her COPD through her primary care physician's office. She states she was on steroids through the pain clinic for her arthritis, but had to stop taking that to be able to start narcotics. It was not clear the timeframe for this. She has minimal cough. She complains of chest congestion, postnasal drip, chest pain, back pain. She has chronic back pain and she has significant hip pain from her falling down the stairs a year and a half ago when she was in [place] and since relocated here to live with her son and [id number]. She is chronically short of breath, it is worse recently. She does have an inhaler, she is not sure which one it is. She states she does not use it that often, usually not daily. She is told that she is supposed to use her oxygen all the time, but she only uses it as needed and states she has a hard time sleeping with it at night, so she does not wear it at bedtime. She has been falling occasionally because she does not like to use her walker at home. No significant falls since a year and a half ago when she fell down the stairs. She denies any change in her lower extremity. She chronically has right lower extremity swelling from her fall. No recent medication changes other than the frequent antibiotic use. No nausea, vomiting, diarrhea. No abdominal pain. No urinary symptoms. Otherwise, review of systems is reviewed and negative as mentioned above. In the emergency room, the patient had labs, imaging. She was given Solu-Medrol 125, magnesium 2 g, Levaquin, DuoNeb, and referred to the hospitalist service for further evaluation. PAST MEDICAL HISTORY: 1. COPD, only uses oxygen as needed, though she is told to use it continuously. 2. History of atrial fibrillation, on anticoagulation. 3. Chronic pain secondary to a significant fall. 4. Arthritis. 5. Hypertension. MEDICATIONS: According to the med reconciliation: 1. Oxycodone 5 mg daily. 2. Gabapentin 200 mg p.o. b.i.d. 3. Metoprolol tartrate 25 mg p.o. b.i.d. 4. Hydrochlorothiazide 12.5 mg p.o. daily. 5. Xarelto 15 mg p.o. daily. 6. Lisinopril 20 mg daily. 7. Risperidone 0.5 mg p.o. at bedtime. 8. She takes 1 inhaler, she does not recall the name. ALLERGIES: PENICILLIN, unknown reaction. FAMILY HISTORY: Parents from old age. SOCIAL HISTORY: As mentioned, the patient recently relocated to live with her son and [id number]. Her tiphlrel-or-opi helps take care of her, she was also her healthcare proxy. She ambulates with a walker. She quit smoking 5 years ago, then she used to smoke half a pack per day for 50 years. No alcohol use or illicit drug use. She is a . CODE STATUS: She confirms she is a DNR/DNI, we will have her complete the MOLST form this evening. REVIEW OF SYSTEMS: A 14-point review of systems as mentioned in the HPI; otherwise negative. PHYSICAL EXAMINATION GENERAL: Appears anxious with some mild respiratory distress with a resting tremor on her right upper extremity. VITAL SIGNS: Temp is 98.6, pulse rate is 121, respiratory rate is 20, oxygen saturation 95% on 3 L, blood pressure 129/52. HEENT: Head normocephalic. Pupils are equal and reactive. Oropharynx: Mucous membranes moist. Erythema in the posterior oropharynx. NECK: Supple. No lymphadenopathy. No nuchal rigidity. RESPIRATORY: Diminished breath sounds, bilateral expiratory wheezing, some mild tachypnea noted. CARDIAC: Sinus tachycardia with a systolic murmur heard throughout. ABDOMEN: Soft, nontender, nondistended. EXTREMITIES: No clubbing, cyanosis, or edema. +1 DPs. NEUROLOGIC: Alert and oriented x3. No gross focal neurologic deficits. She does have a resting tremor in her right upper extremity. DIAGNOSTIC STUDIES/LAB DATA: White count 9, hemoglobin 13, hematocrit 39, platelets 260. INR 0.98. Sodium 131, potassium 4.4, chloride 95, bicarb 24, BUN 33, creatinine 1.4, glucose 141, lactic acid 2.2. Troponin 0.04. CRP 17. Influenza is negative. EKG shows sinus tachycardia with a prolonged QTc of 605. Chest x-ray, no significant findings on wet read. ASSESSMENT: This is an 82-year-old female with a past medical history of chronic obstructive pulmonary disease, noncompliant on her oxygen, and atrial fibrillation, on anticoagulation, who comes into the emergency room with worsening cough, chest pain, and congestion. 1. Cough, chest pain, congestion, shortness of breath. Assessment: The patient's history is almost consistent with a chronic obstructive pulmonary disease exacerbation. The patient has been on 3 rounds of p.o. antibiotics. She does not have a white count. She is not febrile. There is no obvious findings on her chest x-ray to suggest a pneumonia. I suspect this is a chronic obstructive pulmonary disease exacerbation secondary to viral illness or improving pneumonia. I suspect her tachycardia is secondary to volume depletion with a bump in her BUN and creatinine as well. Plan: We will admit her to [address] [place] [address], give her a liter of fluid and continue her on IV fluids. We will hold her lisinopril and her hydrochlorothiazide. We will give her her metoprolol this evening and trend her troponin. Get a baseline echocardiogram to evaluate any evidence of congestive heart failure and /or progression of pulmonary hypertension. The patient needs to be compliant with her oxygen and she needs education on inhaler use. We will start her on steroids 40 mg daily. Start her on albuterol and Dulera, but she will likely needs maintenance and rescue inhalers at discharge and education regarding these as well if she clinically improves; if not, consider other etiologies for her presentation. CHRONIC MEDICAL PROBLEMS: 1. Chronic pain. Continue oxycodone and gabapentin and risperidone. 2. Paroxysmal atrial fibrillation. Assessment: The patient is in sinus tachycardia. Continue her Xarelto and her metoprolol. 3. Hypertension. As mentioned, holding her lisinopril and hydrochlorothiazide in the setting of her volume depletion and a bump in her creatinine. 4. FEN. Continue regular diet with IV fluids. 5. DVT prophylaxis. The patient scores high risk. She is on Xarelto. 6. Code status: The patient confirms she is a DNR/DNI. We will have her fill a MOLST form this evening. PATIENT TIME: Greater than 60 minutes was spent doing the history and physical , more than half the time spent in direct patient contact. [id number]/[facility] #: [id number] CANDELARIA
--- NOTE | 2018-07-15 17:15 | ECHO ---
Patient: ELLIOTT KELLY [facility] Rec#: [id number] : 1935 Date: 07/15/2018 Age: 82y Height: 165 cm / 65.0 in Weight: 74.1 kg / 163.3 lbs Sex: F BSA: 1.81 Room#: 434 Admit Date#: 07/15/2018 Type: Inpatient Referring: Cinthia Card Reading: Cornelio Gibbs MD Assistant Professor Of Archaeology: Emily Mathur RDCS CC: Rufino Dickerson MD Transthoracic Echocardiogram Indication: Shortness of breath BP: 137/65 HR: 98 Rhythm: NSR Findings History: HTN, COPD, former smoker, a-fib. Technical Comments: The study quality is fair. The study is technically limited due to patient body habitus. Completed at 1115. Left Ventricle: The left ventricular chamber size is normal. There is no left ventricular hypertrophy. Global left ventricular wall motion and contractility are within normal limits. There is normal left ventricular systolic function. The estimated ejection fraction is 55-60%. There is septal flattening of the interventricular septum consistent with right ventricular volume or pressure overload. Abnormal left ventricular diastolic function is observed. Left Atrium: The left atrium is mildly dilated. Right Ventricle: Moderator Band present. The right ventricle is moderately dilated. The right ventricle wall thickness is mildly increased. The right ventricular global systolic function is normal. Right Atrium: The right atrial cavity size is normal. Aortic Valve: The aortic valve is trileaflet. The aortic valve leaflets are mildly thickened. There is a trace of aortic regurgitation. There is no evidence of aortic stenosis. Mitral Valve: There is mitral annular calcification. The mitral valve leaflets are mildly thickened. There is trace to mild mitral regurgitation. There is no evidence of mitral stenosis. Tricuspid Valve: The tricuspid valve leaflets are normal. There is trace tricuspid regurgitation. Unable to estimate the right ventricular systolic pressure. There is no tricuspid stenosis. Pulmonic Valve: The pulmonic valve appears normal. There is a trace pulmonic regurgitation. There is no pulmonic stenosis. Pericardium: There is no significant pericardial effusion. A pericardial fat pad is visualized. Aorta: There is no dilatation of the ascending aorta. There is no dilatation of the aortic arch. The aortic root is normal in size. Pulmonary Artery: The main pulmonary artery appears normal. Venous: The inferior vena cava appears normal in size. There is a greater than 50% respiratory change in the inferior vena cava dimension. Summary: There are no significant changes when compared to the previous study done on 05/09/17 Conclusions Global left ventricular wall motion and contractility are within normal limits. The estimated ejection fraction is 55-60%. There is septal flattening of the interventricular septum consistent with right ventricular volume or pressure overload. The right ventricular global systolic function is normal. There is a trace of aortic regurgitation. There is trace to mild mitral regurgitation. There is trace tricuspid regurgitation. Unable to estimate the right ventricular systolic pressure. There is no significant pericardial effusion. Measurements Name Value Normal Range RVIDd (AP) 2D 2.3 cm (0.9 - 2.6) RVDdMajor (2D) 5.1 cm (2.2 - 4.4) RVAW (2D) 0.7 cm (0.2 - 0.5) RAd ISD 4CH 4.9 cm (3.4 - 4.9) RA (A4C)W 4.6 cm (2.9 - 4.6) IVSd (2D) 1 cm (0.6 - 1) LVPWd (2D) 0.8 cm (0.6 - 1) LVIDd (2D) 3.8 cm (3.6 - 5.4) LVIDs (2D) 3.4 cm - LV FS (2D) 9 % (25 - 45) Aortic Annulus 2 cm (1.4 - 2.6) Ao root diameter (2D) 3.2 cm (2.1 - 3.5) Ascending Ao 3 cm (2.1 - 3.4) Aortic arch 2.4 cm (1.8 - 3.4) LA dimension (AP) 2D 3.1 cm (2.3 - 3.8) LAd ISD 4CH 5.8 cm (2.9 - 5.3) LA ISD 4CH W 4.6 cm (2.5 - 4.5) Name Value Normal Range LA ESV BP (A/L) index 31 ml/m2 - Name Value Normal Range MV E-wave Vmax 0.4 m/sec - MV deceleration time 106 msec - MV A-wave Vmax 0.9 m/sec - MV E:A ratio 0.5 ratio - LV septal e' Vmax 0.03 m/sec - LV lateral e' Vmax 0.05 m/sec - LV E:e' septal ratio 13.3 ratio - LV E:e' lateral ratio 8 ratio - Name Value Normal Range AV Vmax 1.2 m/sec - AV VTI 23 cm - AV peak gradient 5 mmHg - AV mean gradient 3 mmHg - LVOT Vmax 0.9 m/sec - LVOT VTI 18.9 cm - LVOT peak gradient 3 mmHg - LVOT mean gradient 2 mmHg - JEFFERY Vmax 0.6 m/sec - Name Value Normal Range IVC diameter 1.9 cm - Name Value Normal Range PV Vmax 1 m/sec - PV peak gradient 4 mmHg -
[2018-07-15] MEDS: Rivaroxaban TAB(*) 15 MG PO SCH (17:33)
--- NOTE | 2018-07-15 18:17 | PN ---
Hospitalist Progress Note Date of Service: 07/15/18 HOSPITALIST ADDENDUM Mrs Beckham is an 82yo F with PMH of COPD, Afib, HTN, chronic pain, who was admitted with dyspnea secondary to COPD exacerbation. Her troponin elevation is secondary to demand ischemic. Echo showed normal ED with no wall motion abnormalities. Will continue current management.
[2018-07-15] MEDS: Melatonin 3 MG TAB PO PRN (21:08)
[2018-07-16] MEDS: NS 0.9% 1000 ML* 1,000 ML IV SCH ×2 (06:18→13:57)
[2018-07-16] MEDS: Mometasone/Formoter 200/5 MDI INH SCH ×2 (07:50→19:44)
[2018-07-16] MEDS: Metoprolol Tartrate TAB* 25 MG PO SCH ×2 (07:59→20:37)
[2018-07-16] MEDS: Gabapentin CAP(*) 100 MG PO SCH ×2 (08:00→20:31)
[2018-07-16] MEDS: oxyCODONE TAB* 5 MG TAB PO PRN ×2 (08:00→18:50)
[2018-07-16] MEDS: predniSONE TAB* 20 MG PO SCH (08:01)
[2018-07-16] MEDS: Nystatin TOP POWDER* 15 GM BTL TOPICAL SCH ×2 (08:02→20:37)
[2018-07-16 12:16] LABS: ABS Basophils 0 10^3/ul (0-0.2); ABS Eosinophils 0 10^3/ul (0-0.6); ABS Lymphocytes 1.1 10^3/ul (1.0-4.8); ABS Monocytes 0.5 10^3/ul (0-0.8); ABS Neutrophils 9.2 10^3/ul (1.5-7.7); ABS Nucleated RBC 0 10^3/ul; Eosinophil % 0.3 %; Hematocrit 32 % (35-47); Hemoglobin 10.7 g/dl (12.0-16.0); Lymphocyte % 10.1 %; Mean Corpuscular HGB Conc 33 g/dl (31-36); Mean Corpuscular Hemoglobin 33 pg (27-31); Mean Corpuscular Volume 99 fL (80-97); Mean Platelet Volume 8.2 fL (7.4-10.4); Nucleated Red Blood Cells % 0; Platelet Count 193 10^3/ul (150-450); Red Blood Count 3.22 10^6/ul (4.00-5.40); Red Cell Distribution Width 16 % (10.5-15); White Blood Count 10.9 10^3/ul (3.5-10.8)
[2018-07-16 13:36] LABS: EGFR Non-African American 51.4 (>60)
--- NOTE | 2018-07-16 16:15 | PN ---
Subjective Date of Service: 07/16/18 Interval History: Pt resting comfortably in bed on 4L O2. Reports breathing is much better than yesterday and says it's the best she's felt in 6 months. Reports cough has decreased and chest discomfort is at baseline. Denies headache, dizziness, abdominal pain, nausea/vomiting/diarrhea/constipation. Objective Active Medications: Acetaminophen (Tylenol Tab*) 650 mg PO Q4H PRN PRN Reason: FEVER/PAIN Al Hydrox/Mg Hydrox/Simethicone (Maalox Plus*) 30 ml PO Q6H PRN PRN Reason: INDIGESTION Albuterol (Ventolin 2.5 Mg/3 Ml Neb.Dary*) 2.5 mg INH Q2H PRN PRN Reason: SOB/WHEEZING Last Admin: 07/15/18 02:49 Dose: 2.5 mg Docusate Sodium (Colace Cap*) 100 mg PO BID PRN PRN Reason: CONSTIPATION Gabapentin (Neurontin Cap(*)) 200 mg PO BID [facility] Last Admin: 07/16/18 08:00 Dose: 200 mg Melatonin (Melatonin) 3 mg PO BEDTIME PRN PRN Reason: SLEEP Last Admin: 07/15/18 21:08 Dose: 3 mg Metoprolol Tartrate (Lopressor Tab*) 25 mg PO BID [facility] Last Admin: 07/16/18 07:59 Dose: 25 mg Metoprolol Tartrate (Lopressor Iv*) 5 mg IV Q6H PRN PRN Reason: HEART RATE/PULSE Mometasone Furoate/Formoterol Fumar (Dulera 200/5 Mdi*) 2 puff INH BID [facility] Last Admin: 07/16/18 07:50 Dose: 2 puff Morphine Sulfate (Morphine Vial*) 2 mg IV Q4H PRN PRN Reason: PAIN - MILD Last Admin: 07/15/18 19:16 Dose: 2 mg Nystatin (Nystatin Top Powder*) 1 applic TOPICAL BID [facility] Last Admin: 07/16/18 08:02 Dose: 1 applic Oxycodone HCl (Roxycodone Tab*) 5 mg PO Q4H PRN PRN Reason: PAIN Last Admin: 07/16/18 08:00 Dose: 5 mg Prednisone (Deltasone Tab*) 40 mg PO DAILY [facility] Last Admin: 07/16/18 08:01 Dose: 40 mg Risperidone (Risperdal) 0.5 mg PO BEDTIME [facility] Last Admin: 07/15/18 21:08 Dose: 0.5 mg Rivaroxaban (Xarelto(*)) 15 mg PO QPM [facility] Last Admin: 07/15/18 17:33 Dose: 15 mg Senna (Senokot Tab*) 1 tab PO BID PRN PRN Reason: CONSTIPATION Vital Signs - 8 hr 07/16/18 07/16/18 07/16/18 09:31 11:15 15:36 Temperature 97.2 F 97.9 F Pulse Rate 83 96 Respiratory 20 18 24 Rate Blood Pressure 132/51 145/67 (mmHg) O2 Sat by Pulse 97 98 Oximetry Oxygen Devices in Use Now: Nasal Cannula Eyes: No Scleral Icterus, PERRLA Ears/Nose/Mouth/Throat: NL Teeth, Lips, Gums, Mucous Membranes Moist Neck: NL Appearance and Movements; NL JVP, Trachea Midline Respiratory: Symmetrical Chest Expansion and Respiratory Effort, - - Soft expiratory wheezes bilaterally. Rales in bases. Cardiovascular: NL Sounds; No Murmurs; No JVD, RRR, No Edema Abdominal: NL Sounds; No Tenderness; No Distention Extremities: No Edema Skin: No Rash or Ulcers Neurological: Alert and Oriented x 3 Nutrition: Taking PO's Result Diagrams: 07/16/18 12:01 07/16/18 09:35 Microbiology and Other Data: Microbiology 07/14/18 23:01 Aerobic Blood Culture - Preliminary Blood Venous No Growth Day 1 Anaerobic Blood Culture - Preliminary No Growth Day 1 07/14/18 23:08 Aerobic Blood Culture - Preliminary Blood Venous No Growth Day 1 Anaerobic Blood Culture - Preliminary No Growth Day 1 07/14/18 22:37 Influenza Types A,B Antigen - Final Nasopharyngeal Specimen received for Influenza A/B Molecular testing Assess/Plan/Problems-Billing Assessment: 82 year old female with PMH COPD (on home O2), paroxysmal afib on xarelto, HTN, chronic pain and RLE swelling from fall presented to ED with SOB, cough, CP, admitted for COPD exacerbation. On prednisone, dulera, albuterol PRN. - Patient Problems (1) COPD exacerbation Current Visit: Yes Status: Acute Code(s): J44.1 - CHRONIC OBSTRUCTIVE PULMONARY DISEASE W (ACUTE) EXACERBATION SNOMED Code(s): 622539241 Comment: - Improving. Pt with mild wheezing on exam. Reports shortness of breath is far improved. - Continue O2 support. Pt is on home O2 - Continue prednisone, dulera, prn albuterol. Pt will need controller medications on discharge. (2) Chronic pain after traumatic injury Current Visit: Yes Status: Acute Code(s): G89.29 - OTHER CHRONIC PAIN SNOMED Code(s): 126136178 Comment: - Continue home pain control regimen (3) Afib Current Visit: No Status: Acute Priority: High Code(s): I48.91 - UNSPECIFIED ATRIAL FIBRILLATION SNOMED Code(s): 95824410 Comment: - Paroxysmal afib - Continue anticoagulation with xarelto - Continue rate control with metoprolol. Was tachycardic on admission, but rates now in the 70s-80s. (4) Elevated troponin Current Visit: Yes Status: Acute Code(s): R74.8 - ABNORMAL LEVELS OF OTHER SERUM ENZYMES SNOMED Code(s): 228813132 Comment: - Trended down from 0.14 - Likely demand ischemia in the setting of COPD exacerbation and tachycardia - Echo showed no wall motion abnormalities, preserved EF, septal flatttening consistent with RV pressure or volume overload. (5) Elevated lactic acid level Current Visit: Yes Status: Acute Code(s): R79.89 - OTHER SPECIFIED ABNORMAL FINDINGS OF BLOOD CHEMISTRY SNOMED Code(s): 6201040 Comment: - Lactic acid 2.3 today. No evidence of sepsis. Pt has not been hypotensive, afebrile, no leukocytosis. Pt was give NS at 100ml/hr, with resolution of tachycardia and JULES. Stopped IVF today as pt had rales in bilateral bases. (6) Hypertension Current Visit: No Status: Acute Priority: High Code(s): I10 - ESSENTIAL ( PRIMARY) HYPERTENSION SNOMED Code(s): 33801180 Comment: - Continue metoprolol - Lisinopril and HCTZ on hold in the setting of volume depletion and JULES. Pt has now received IVF and is normotensive. Consider restarting tomorrow. (7) DVT prophylaxis Current Visit: No Status: Acute Priority: High Code(s): NCO5881 - SNOMED Code(s): 190518325 Comment: - On xarelto (8) DNR (do not resuscitate) Current Visit: Yes Status: Acute
[2018-07-16] MEDS: Rivaroxaban TAB(*) 15 MG PO SCH (17:10)
[2018-07-16] MEDS: Melatonin 3 MG TAB PO PRN (22:48)
[2018-07-17] MEDS: oxyCODONE TAB* 5 MG TAB PO PRN ×3 (03:01→14:43)
[2018-07-17 05:23] LABS: Hematocrit 31 % (35-47); Hemoglobin 10.4 g/dl (12.0-16.0); Mean Corpuscular HGB Conc 33 g/dl (31-36); Mean Corpuscular Hemoglobin 33 pg (27-31); Mean Corpuscular Volume 98 fL (80-97); Mean Platelet Volume 8.1 fL (7.4-10.4); Platelet Count 203 10^3/ul (150-450); Red Blood Count 3.19 10^6/ul (4.00-5.40); Red Cell Distribution Width 16 % (10.5-15); White Blood Count 10.4 10^3/ul (3.5-10.8)
[2018-07-17 05:39] LABS: EGFR Non-African American 56.5 (>60)
[2018-07-17 06:08] LABS: ABS Basophils 0 10^3/ul (0-0.2); ABS Eosinophils 0.1 10^3/ul (0-0.6); ABS Lymphocytes 2.1 10^3/ul (1.0-4.8); ABS Neutrophils 7.2 10^3/ul (1.5-7.7); ABS Nucleated RBC 0 10^3/ul; Eosinophil % 0.7 %; Lymphocyte % 20.4 %; Nucleated Red Blood Cells % 0.1
[2018-07-17] MEDS: Mometasone/Formoter 200/5 MDI INH SCH (07:52)
[2018-07-17] MEDS: Nystatin TOP POWDER* 15 GM BTL TOPICAL SCH (08:11)
[2018-07-17] MEDS: predniSONE TAB* 20 MG PO SCH (08:12)
[2018-07-17] MEDS: Gabapentin CAP(*) 100 MG PO SCH (08:12)
[2018-07-17] MEDS: Metoprolol Tartrate TAB* 25 MG PO SCH (08:12)
[2018-07-17] MEDS ORDERED: Lisinopril TAB* 10 MG PO SCH (14:30)
[2018-07-17 15:24] VITALS: BP 172/81
--- NOTE | 2018-07-17 15:57 | PN ---
Subjective Date of Service: 07/17/18 Interval History: Pt resting comfortably in bed. Says she feels better than she's felt in months. Her shortness of breath is improved to her baseline on her baseline O2. No shortness of breath at rest. Still short of breath with exertion, but pt feels this is similar to her baseline. Denies chest pain. Cough is infrequent, similar to her baseline. Denies headache, dizziness, abdominal pain, nausea/ vomiting. Objective Active Medications: Acetaminophen (Tylenol Tab*) 650 mg PO Q4H PRN PRN Reason: FEVER/PAIN Al Hydrox/Mg Hydrox/Simethicone (Maalox Plus*) 30 ml PO Q6H PRN PRN Reason: INDIGESTION Albuterol (Ventolin 2.5 Mg/3 Ml Neb.Dary*) 2.5 mg INH Q2H PRN PRN Reason: SOB/WHEEZING Last Admin: 07/15/18 02:49 Dose: 2.5 mg Docusate Sodium (Colace Cap*) 100 mg PO BID PRN PRN Reason: CONSTIPATION Gabapentin (Neurontin Cap(*)) 200 mg PO BID [facility] Last Admin: 07/17/18 08:12 Dose: 200 mg Lisinopril (Prinivil Tab*) 20 mg PO DAILY [facility] Last Admin: 07/17/18 14:44 Dose: 20 mg Melatonin (Melatonin) 3 mg PO BEDTIME PRN PRN Reason: SLEEP Last Admin: 07/16/18 22:48 Dose: 3 mg Metoprolol Tartrate (Lopressor Tab*) 25 mg PO BID [facility] Last Admin: 07/17/18 08:12 Dose: 25 mg Metoprolol Tartrate (Lopressor Iv*) 5 mg IV Q6H PRN PRN Reason: HEART RATE/PULSE Mometasone Furoate/Formoterol Fumar (Dulera 200/5 Mdi*) 2 puff INH BID [facility] Last Admin: 07/17/18 07:52 Dose: 2 puff Morphine Sulfate (Morphine Vial*) 2 mg IV Q4H PRN PRN Reason: PAIN - MILD Last Admin: 07/15/18 19:16 Dose: 2 mg Nystatin (Nystatin Top Powder*) 1 applic TOPICAL BID [facility] Last Admin: 07/17/18 08:11 Dose: 1 applic Oxycodone HCl (Roxycodone Tab*) 5 mg PO Q4H PRN PRN Reason: PAIN Last Admin: 07/17/18 14:43 Dose: 5 mg Prednisone (Deltasone Tab*) 40 mg PO DAILY [facility] Last Admin: 07/17/18 08:12 Dose: 40 mg Risperidone (Risperdal) 0.5 mg PO BEDTIME [facility] Last Admin: 07/16/18 20:37 Dose: 0.5 mg Rivaroxaban (Xarelto(*)) 15 mg PO QPM [facility] Last Admin: 07/16/18 17:10 Dose: 15 mg Senna (Senokot Tab*) 1 tab PO BID PRN PRN Reason: CONSTIPATION Vital Signs - 8 hr 07/17/18 07/17/18 07/17/18 07:53 08:00 08:12 Temperature Pulse Rate 74 Respiratory 14 16 22 Rate Blood Pressure (mmHg) O2 Sat by Pulse 96 Oximetry 07/17/18 07/17/18 07/17/18 09:32 11:03 12:09 Temperature Pulse Rate Respiratory 16 16 16 Rate Blood Pressure (mmHg) O2 Sat by Pulse Oximetry 07/17/18 07/17/18 07/17/18 13:32 13:53 14:43 Temperature 98.0 F Pulse Rate 102 114 Respiratory 18 16 Rate Blood Pressure 175/87 191/103 (mmHg) O2 Sat by Pulse 98 96 Oximetry 07/17/18 15:23 Temperature 98.1 F Pulse Rate 92 Respiratory 16 Rate Blood Pressure 172/81 (mmHg) O2 Sat by Pulse 96 Oximetry Oxygen Devices in Use Now: Nasal Cannula Eyes: No Scleral Icterus, PERRLA Ears/Nose/Mouth/Throat: NL Teeth, Lips, Gums, Mucous Membranes Moist Neck: NL Appearance and Movements; NL JVP, Trachea Midline Respiratory: Symmetrical Chest Expansion and Respiratory Effort, Clear to Auscultation Cardiovascular: NL Sounds; No Murmurs; No JVD, RRR Abdominal: NL Sounds; No Tenderness; No Distention Extremities: No Edema, No Clubbing, Cyanosis Skin: No Rash or Ulcers Neurological: Alert and Oriented x 3 Lines/Tubes/Other Access: Clean, Dry and Intact Peripheral IV Result Diagrams: 07/17/18 04:57 07/17/18 04:57 Microbiology and Other Data: Microbiology 07/14/18 23:01 Aerobic Blood Culture - Preliminary Blood Venous No Growth Day 1 Anaerobic Blood Culture - Preliminary No Growth Day 1 12/03/18 23:08 Aerobic Blood Culture - Preliminary Blood Venous No Growth Day 1 Anaerobic Blood Culture - Preliminary No Growth Day 1 07/14/18 22:37 Influenza Types A,B Antigen - Final Nasopharyngeal Specimen received for Influenza A/B Molecular testing Assess/Plan/Problems-Billing Assessment: 82 year old female with PMH COPD (on home O2), paroxysmal afib on xarelto, HTN, chronic pain and RLE swelling from fall presented to ED with SOB, cough, CP, admitted for COPD exacerbation. On prednisone, dulera, albuterol PRN. - Patient Problems (1) COPD exacerbation Current Visit: Yes Status: Acute Code(s): J44.1 - CHRONIC OBSTRUCTIVE PULMONARY DISEASE W (ACUTE) EXACERBATION SNOMED Code(s): 138013996 Comment: - Improved. No wheezing on exam. Pt reports shortness of breath is far improved. No SOb at rest. Still SOB with exhertion, however pt feels this is at her baseline. - Continue O2 support. Pt is on home O2, 3-4L at baseline - Continue prednisone, dulera, prn albuterol. Pt will need controller medications on discharge. 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 Was tachycardic on admission, but rates now in the 70s-80s. (4) Elevated troponin Current Visit: Yes Status: Acute Code(s): R74.8 - ABNORMAL LEVELS OF OTHER SERUM ENZYMES SNOMED Code(s): 907695506 Comment: - Trended down from 0.14 - Likely demand ischemia in the setting of COPD exacerbation and tachycardia - Echo showed no wall motion abnormalities, preserved EF, septal flatttening consistent with RV pressure or volume overload. IVF was discontinued (5) Elevated lactic acid level Current Visit: Yes Status: Acute Code(s): R79.89 - OTHER SPECIFIED ABNORMAL FINDINGS OF BLOOD CHEMISTRY SNOMED Code(s): 8938287 Comment: - Lactic acid 2.3 today. No evidence of sepsis. Pt has not been hypotensive, afebrile, no leukocytosis. Pt was given NS at 100ml/hr, with resolution of tachycardia and JULES (6) Hypertension Current Visit: No Status: Acute Priority: High Code(s): I10 - ESSENTIAL ( PRIMARY) HYPERTENSION SNOMED Code(s): 90596617 Comment: - Continue metoprolol - Lisinopril and HCTZ on hold in the setting of volume depletion and JULES. Pt has now received IVF and is normotensive. Consider restarting tomorrow. (7) DVT prophylaxis Current Visit: No Status: Acute Priority: High Code(s): OVM8318 - SNOMED Code(s): 917265311 Comment: - On xarelto (8) DNR (do not resuscitate) Current Visit: Yes Status: Acute Status and Disposition: Stable for discharge home
[2018-07-17] MEDS: Rivaroxaban TAB(*) 15 MG PO SCH (17:05)
--- NOTE | 2018-07-18 08:39 | DS ---
CC: Dr. Dickerson * DISCHARGE SUMMARY: DATE OF ADMISSION: DATE OF DISCHARGE: 07/17/18 PROVIDER: Charisma Galvan NP ATTENDING PHYSICIAN: Dr. Maribel Boles * (dictated by Charisma Galvan NP) PRIMARY CARE PROVIDER: Dr. Dickerson. PRIMARY DIAGNOSIS: Chronic obstructive pulmonary disease exacerbation. SECONDARY DIAGNOSES: 1. Chronic pain secondary to remote fall. 2. Paroxysmal atrial fibrillation. 3. Hypertension. MEDICATIONS ON DISCHARGE: 1. Oxycodone 5 mg p.o. daily. 2. Gabapentin 200 mg p.o. b.i.d. 3. Metoprolol 25 mg p.o. b.i.d. 4. Hydrochlorothiazide 12.5 mg p.o. daily. 5. Xarelto 15 mg p.o. daily. 6. Lisinopril 20 mg p.o. daily. 7. Risperdal 0.5 mg p.o. at bedtime. New medications on discharge: 1. Prednisone 40 mg p.o. daily for 2 days. 2. Advair Diskus 250/50 one puff b.i.d. 3. Albuterol inhaler 1 puff q.6 hours p.r.n. DIAGNOSTIC STUDIES WHILE IN THE HOSPITAL: Transthoracic echo: Global LV wall motion and contractility are within normal limits. Estimated EF is 55% to 60%. Septal flattening of the interventricular septum consistent with RV volume or pressure overload. The right ventricle global systolic function is normal. There is trace aortic regurgitation. There is [id number] mitral regurgitation. There is trace tricuspid regurgitation. Unable to estimate RV systolic pressure. There is no significant pericardial effusion. Chest x-ray: Low lung volumes, small left basilar infiltrate suggestive of atelectasis. HOSPITAL COURSE: The patient is an 82-year-old female with a past medical history of COPD; AFib, on Xarelto; chronic pain secondary to a fall, who presented to the ED with about a 1-month history of cough, shortness of breath, and chest pain that increased with deep breath. She had been treated with antibiotics as an outpatient 3 times and each time she felt like she got a little bit better but her symptoms then recurred and she came to the ED for further evaluation after failing outpatient therapy. The patient did have a chest x-ray which showed low lung volumes, a small basilar infiltrate suggestive of atelectasis on the left. Since the patient was afebrile and did not have leukocytosis and no infiltrate it was suspected that the patient's shortness of breath was more likely due to COPD exacerbation versus pneumonia, especially as the patient had recently completed multiple rounds of antibiotics for this as well. Of note, the patient did have a lactate of 2.2 and a slightly elevated creatinine of 1.4. She was also tachycardic to a peak of 145 , however, both the JULES and tachycardia resolved with fluid administration. She was admitted to the hospitalist service for COPD exacerbation. The patient was started on prednisone 40 mg daily and was given Dulera and p.r.n. albuterol , with improvement in her shortness of breath. Of note, the patient was hypertensive in the last day of her admission; however, this was in the setting of holding her antihypertensives due to episodes of lower blood pressure as well as JULES. The antihypertensives have been resumed upon discharge and I anticipate that her blood pressure will respond appropriately. On the day of discharge, the patient reports that her shortness of breath is far improved. She says this is the best that she has felt in months. The patient is experiencing no shortness of breath at rest. She does still experience shortness of breath with exertion; however, the patient feels that this is at her baseline. On the day of discharge, the patient's lungs were clear to auscultation. The patient was satting 96% on her baseline 3 to 4 L oxygen and was demonstrating normal work of breathing. The patient was prescribed prednisone to complete a 5-day course as well as Advair and p.r.n. albuterol as the patient does have COPD requiring oxygen and has not been on any controller medications. DISPOSITION: The patient is stable for discharge to home. DIET: Regular diet. ACTIVITY: Activity as tolerated. FOLLOWUP: The patient is instructed to follow up with her primary care physician, Dr. Dickerson, in 4 to 7 days. TIME SPENT: Time spent on this discharge was 45 minutes. CHARISMA GALVAN, ADY [id number]/[facility] #: [id number] [facility] HEALTHBirgit
== END 2018-07-17 18:15 | disposition home or self-care (01) | DRG 191 ==
LOC: ED 21:57 → MEDTELE 07-15 00:35
PROVIDERS: ADMIT Pediatrics; ATTEND Internal Medicine
DX: J44.1 Chronic obstructive pulmonary disease with (acute) exacerbation (principal); I24.8 Other forms of acute ischemic heart disease; N17.9 Acute kidney failure, unspecified; J98.11 Atelectasis; G43.909 Migraine, unspecified, not intractable, without status migrainosus; M19.90 Unspecified osteoarthritis, unspecified site; I10 Essential (primary) hypertension; G89.29 Other chronic pain; Z66 Do not resuscitate; I48.0 Paroxysmal atrial fibrillation; I08.3 Combined rheumatic disorders of mitral, aortic and tricuspid valves; M54.9 Dorsalgia, unspecified; Z99.81 Dependence on supplemental oxygen; Z91.81 History of falling; Z88.0 Allergy status to penicillin; Z79.01 Long term (current) use of anticoagulants; Z90.710 Acquired absence of both cervix and uterus; Z91.19 Patient's noncompliance with other medical treatment and regimen; Z87.891 Personal history of nicotine dependence
CPT/HCPCS: 36415; 71045; 80048; 80053; 80061; 83605; 83735; 83880; 84484; 85025; 85610; 85730; 86140; 87040; 93005; 93306; 94640; 99284; A9270-GY; J2060; J2270; J2930; J3475; J7512

== ENCOUNTER 2018-12-18 16:28 | Emergency (ER) | payer MEDICARE, OTHER ==
--- OUTSIDE RECORDS SUMMARY | 2018-12-18 16:39 | XMS REPORT | Continuity of Care Document ---
:1935 External Reference #:[id number] Author Name FRANKIE Salazar Address [address] [place] [address] Care Team Providers Name Role Phone Rufino Dickerson MD Care Team Information Production Engineer Track Unavailable Rufino Dickerson MD Primary Care Physician Unavailable Payers Date Identification Numbers Payment Provider Subscriber Effective: 2001 Policy Number: [id number] [place] Leonor Beckham PayID: [id number] [address] [place] [address] Policy Number: [id number] [facility] Leonor Beckham PayID: [id number] [address] [address] [place] [address] Advance Directives Description No Information Available Problems Active Problems Provider Date Narcolepsy Rufino Dickerson M.D. Onset: 04/03/2018 Chronic pain syndrome Rufino Dickerson M.D. Onset: 04/03/2018 Gastroesophageal reflux disease Rufino Dickerson M.D. Onset: 08/21/2017 Fibromyalgia Rufino Dickerson M.D. Onset: 08/21/2017 Dysthymic disorder Rufino Dickerson M.D. Onset: 08/21/2017 Atrial fibrillation Rufino Dickerson M.D. Onset: 08/21/2017 Essential hypertension uRfino Dickerson M.D. Onset: 08/21/2017 Family History Date Family Member(s) Observation Comments Father Alcoholism Mother Unremarkable Social History Type Date Description Comments Sex Unknown Lives With Son Lives With Daughter In law Tobacco Use Start: Unknown End: Unknown Patient is a former smoker Allergies, Adverse Reactions, Alerts Active Allergies Reaction Severity Comments Date Penicillin 08/21/2017 Medications Active Medications SIG Qnty Indications Ordering Date Provider Fluoxetine HCL Take 1 Tablet 90Tablet Rufino Love 11/09/2018 20mg Tablets By Mouth Mary Dickerson Every Day Hydroxyzine HCL Take 1-2 60tabs R21 Jr F. 11/07/2018 25mg Tablets Tablets By Mary Holcomb Mouth Every 8 Hours as Needed For Itching Gabapentin take one 360caps G89.4 Aranza C. 01/30/2018 100mg Capsules capsule by ADY Nogueira mouth four times per day Lisinopril Take 1 Tablet 30tabs Rufino A. 20mg Tablets By Mouth Mary Dickerson Every Day Norvasc 1 by mouth 30tabs Susan 5mg Tablets every day FRANKIE Amin Oxycodone HCL 1 by mouth up 60tabs Rufino A. 5mg Tablets to every 6 Mary Dickerson hours as needed Pepcid take 1 tablet Unknown 20mg Tablets by mouth two times daily Xarelto 1 by mouth Unknown 15mg Tablets every day Risperdal take 2 60tabs Susan 0.5mg Tablets tablets by FRANKIE Amin mouth daily Miralax 17 grams Unknown [id number] Packet every day with large glass water Senna-Plus 2 po bid Unknown 8.6-50mg Tablets Metoprolol Tartrate 1 by mouth Unknown 50mg Tablets twice a day Hydrochlorothiazide 1 by mouth 30tabs Beckie Tate, 12.5mg every day as OVEREDGE SEWER Tablets needed History Medications Nitrofurantoin 1 by mouth 10caps Susan 11/14/2018 - Macrocrystal twice a day x 5 FRANKIE Amin 12/09/2018 100mg days Capsules Hydroxyzine HCL 1 po tid prn 30tabs R21 Rosina 10/14/2018 - 10mg itching Sera Greenberg 11/07/2018 Tablets Fluoxetine HCL Take 1 Tablet 30tabs Rufinojames Dickerson, 09/15/2018 - 20mg By Mouth Every M.D. 11/08/2018 Tablets Day Cefuroxime Axetil 1 by mouth 14tabs Beata Aleta 06/05/2018 - 250mg twice a day x Rehan, ADY 07/29/2018 Tablets 7d Azithromycin take 2 tablets 12tabs J01.90 Beckie Hemphillrer, 05/24/2018 - 250mg by mouth x 3d OVEREDGE SEWER 06/05/2018 Tablets then take 1 tablet daily for next 6 days Fluticasone 2 sprays each 15.800ml Rufino Dickerson, 04/09/2018 - Propionate nostril every M.D. 04/16/2018 50mcg/Act night at Suspension bedtime Fexofenadine HCL 1 by mouth 7tabs Rufino Dickerson, 04/09/2018 - 180mg every day M.D. 04/16/2018 Tablets Gabapentin take one to 270caps Rufino Dickerson, 08/29/2017 - 100mg three capsules M.D. 09/05/2017 Capsules by mouth three times a day as needed for pain Lyrica 1 by mouth two 60caps Rufino Dickerson, 08/21/2017 - 150mg Capsules times a day M.D. 08/28/2017 Lyrica 1 by mouth Unknown - 50mg Capsules three times a 08/21/2017 day Metoprolol Tartrate 1 by mouth 30tabs Susan - twice a day FRANKIE Amin 04/10/2018 100mg Tablets Prozac 1 by mouth 90caps Rufino Dickerson, - 10mg Capsules every day M.D. 09/15/2018 Risperdal 1 by mouth Unknown - 0.25mg every night at 08/21/2017 Tablets bedtime as needed insomnia Amiodarone HCL 1 by mouth 30tabs Susan - 200mg every day FRANKIE Amin 04/10/2018 Tablets Immunizations CPT Code Status Date Vaccine Lot # [id number] Given 07/12/2018 High-Dose, Influenza Virus Vacccine-fluzone 65 and older [id number] Given 08/21/2017 High-Dose, Influenza Virus Vacccine-fluzone 65 and [id number] older Vital Signs Date Vital Result Comment 12/09/2018 1:41pm BP Systolic 96 mmHg BP Diastolic 62 mmHg Heart Rate 62 /min Body Temperature 97.7 F Respiratory Rate 18 /min Height 60 inches 5'0" Weight 161.00 lb BMI (Body Mass Index) 31.4 kg/m2 11/07/2018 10:10am BP Systolic 122 mmHg BP Diastolic 60 mmHg Heart Rate 68 /min Body Temperature 97.3 F Height 60 inches 5'0" Weight 160.00 lb BMI (Body Mass Index) 31.2 kg/m2 10/14/2018 9:28am Body Temperature 97.9 F Respiratory Rate 18 /min Height 60 inches 5'0" Weight 161.38 lb BMI (Body Mass Index) 31.5 kg/m2 09/15/2018 11:12am BP Systolic 120 mmHg BP Diastolic 62 mmHg Heart Rate 52 /min Body Temperature 97.5 F Respiratory Rate 18 /min Height 60 inches 5'0" Weight 160.00 lb BMI (Body Mass Index) 31.2 kg/m2 07/29/2018 11:20am BP Systolic 120 mmHg BP Diastolic 68 mmHg Heart Rate 56 /min Body Temperature 97.7 F Respiratory Rate 16 /min O2 % BldC Oximetry 95 % Height 60 inches 5'0" Weight 167.00 lb BMI (Body Mass Index) 32.6 kg/m2 05/24/2018 12:02pm BP Systolic 124 mmHg BP Diastolic 70 mmHg Heart Rate 52 /min Body Temperature 99.2 F Respiratory Rate 17 /min O2 % BldC Oximetry 96 % Ra Height 60 inches 5'0" Weight 160.38 lb BMI (Body Mass Index) 31.3 kg/m2 04/03/2018 1:15pm BP Systolic 154 mmHg BP Diastolic 98 mmHg Heart Rate 96 /min Body Temperature 99.9 F Respiratory Rate 20 /min Height 60 inches 5'0" Weight 152.00 lb BMI (Body Mass Index) 29.7 kg/m2 01/30/2018 3:17pm BP Systolic 138 mmHg BP Diastolic 82 mmHg Heart Rate 76 /min Body Temperature 97.7 F Respiratory Rate 16 /min Height 60 inches 5'0" Weight 159.25 lb BMI (Body Mass Index) 31.1 kg/m2 08/21/2017 11:05am BP Systolic 132 mmHg BP Diastolic 84 mmHg Heart Rate 88 /min reg Body Temperature 98.7 F Respiratory Rate 16 /min Height 60 inches 5'0" Weight 148.38 lb BMI (Body Mass Index) 29.0 kg/m2 Results Test Date Facility Test Result H/L Range Note Creatinine 24HR Urine 11/10/2018 [facility] Urine Collection Time 24 hr Urine Total Volume 350 mL Urine Creatinine Concentration 67.72 mg/dL Urine Creatinine/24 Hour 237.02 mg/24Hr Low 600-1800 Total Protein 24HR Urine 11/10/2018 [facility] Urine TP Concentration 18 mg/dL Urine Total Protein/24HR 63 mg/24Hr N 0-165 Ua - Non Micro (a) 11/07/2018 [facility] Appearance clear (607)- - Color yellow Glucose, Urine (a/[facility]/CTX) negative Bilirubin negative Ketones negative SP Grav 1.010 Blood negative PH 6.5 Protein negative Urobil 0.2 Nitrite negative Leukocytes (a/[facility]/Centrex) large # Urine Culture And 11/07/2018 [facility] Urine Culture SEE RESULT 1 Sensitivities BELOW CBC Electronic a 09/15/2018 Andrew Francesca([facility]) WBC 8.6 x10^3/UL 4.0- 10. 0 RBC 4.04 x10^6/UL 3.93-6.00 HGB 12.9 g/dL 12.0-17.0 HCT 38 % 35-50 MCV 94.3 fL 80.0-95.0 MCH 31.9 pg 25.6-32.2 MCHC 33.9 g/dL 32.2-36.0 RDW-CV 13.2 % 11.6-14.4 PLT 265 x10^3/UL 163-400 MPV 9.2 fL Low 9.4-12.4 Damari# 5.51 x10^3/UL 1.56-6.13 Lymph# 1.93 x10^3/UL 1.18-3.74 Mercer# 0.87 x10^3/UL High 0.24-0.82 Eos # 0.2 x10^3/UL 0.0-0.5 Baso # 0.03 x10^3/UL 0.01-0.08 Damari% 63.9 % 34.0-70.0 Lymph % 22.4 % 20.0-52.0 Mercer% 10.1 % 5.0-12.0 Eos% 2.4 % 0.7-7.0 Baso% 0.3 % 0.1-1.2 Comprehensive Metabolic 09/15/2018 Andrew Francesca([facility]) Sodium 129 mEq/L Low 134-149 2 Prof Potassium 5.7 mEq/L High 3.6-5.5 3 Chloride 92 mEq/L Low 94-112 Carbon Dioxide 25 mEq/L 21-32 Glucose 108 mg/dL High 70-105 BUN 31 mg/dL High 6-26 4 Creatinine 1.3 mg/dL 0.6-1.4 BUN/Creat Ratio 23.8 CALC 8.0-36.0 Calcium 9.3 mg/dL 8.6-10.2 Total Protein 6.8 g/dL 6.4-8.3 Albumin 4.5 g/dL 3.8-5.5 Globulin 2.3 g/dL 2.0-4.8 A/G Ratio 2.0 CALC 0.6-2.3 Alk. Phosphatase 65 U/L 30-110 Alt (SGPT) 17 U/L 7-35 Ast (Sgot) 25 U/L 5-34 Total Bilirubin 0.7 mg/dL 0.2-1.3 GFR Non- 42 ml/min/1.73m^ Low >=60 GFR 51 ml/min/1.73m^ Low >=60 Laboratory test finding 09/15/2018 Morales Francesca([facility]) TSH 1.60 mIU/L 0.50-6.00 Vitamin B-12 683 pg/mL 230-1050 Free T3 2.58 pg/mL 2.00-4.90 Free T4 1.33 ng/dL 0.75-1.54 Laboratory test 09/15/2018 [facility] Methylmalonic Acid 0.44 nmol/mL Abnormal < =0.40 5 finding Mma Homocysteine 25 mcmol/L Abnormal 6 Rapid Influenza A & B 07/15/2018 [facility] Influenza A Molecular NEGATIVE Negative 7 Molecular Influenza B Molecular NEGATIVE Negative Laboratory test 07/14/2018 [facility] Rapid Influenza A & SEE RESULT BELOW 8 finding B Antigen Laboratory test 07/14/2018 [facility] C Reactive Protein 17.59 mg/L High <8.01 finding Troponin I 0.04 ng/mL High <0.04 9 B-Type Natriuretic Peptide BNP 59 pg/mL <=100 Lactic Acid 2.2 mmol/L High 0.5-2.0 10 Blood Culture SEE RESULT BELOW 11 Comp Metabolic Panel 07/14/2018 [facility] Sodium 131 mmol/L Low 135-145 Potassium 4.4 mmol/L N 3.5-5.0 Chloride 95 mmol/L Low 101-111 Co2 Carbon Dioxide 24 mmol/L N 22-32 Anion Gap 12 mmol/L High 2-11 Glucose 141 mg/dL High 70-100 Blood Urea Nitrogen 33 mg/dL High 6-24 Creatinine 1.40 mg/dL High 0.51-0.95 BUN/Creatinine Ratio 23.6 High 8-20 Calcium 9.8 mg/dL N 8.6-10.3 Total Protein 7.5 g/dL N 6.4-8.9 Albumin 4.6 g/dL N 3.2-5.2 Globulin 2.9 g/dL N 2-4 Albumin/Globulin Ratio 1.6 N 1-3 Total Bilirubin 0.50 mg/dL N 0.2-1.0 Alkaline Phosphatase 92 U/L N 34-104 Alt 15 U/L N 7-52 Ast 21 U/L N 13-39 Egfr Non- 36.1 >60 Egfr 43.7 >60 12 Laboratory test 07/14/2018 [facility] Partial 30.2 seconds N 26.0-36.3 finding Thrombo Time PTT Inr/Protime 07/14/2018 [facility] Inr 0.98 N 0.77-1.02 Comprehensive 08/21/2017 Morales Francesca([facility]) Sodium 136 mEq/L 134-149 Metabolic Prof Potassium 4.5 mEq/L 3.6-5.5 Chloride 102 mEq/L 94-112 Carbon Dioxide 24 mEq/L 21-32 Glucose 105 mg/dL 70-105 BUN 19 mg/dL 6-26 Creatinine 1.0 mg/dL 0.6-1.4 BUN/Creat Ratio 19.0 CALC 8.0-36.0 Calcium 9.6 mg/dL 8.6-10.2 Total Protein 6.9 g/dL 6.4-8.3 Albumin 4.4 g/dL 3.8-5.5 Globulin 2.5 g/dL 2.0-4.8 A/G Ratio 1.8 CALC 0.6-2.3 Alk. Phosphatase 94 U/L 30-110 Alt (SGPT) 5 U/L Low 7-35 13 Ast (Sgot) 12 U/L 5-34 Total Bilirubin 0.6 mg/dL 0.2-1.3 GFR Non- 57 ml/min/1.73m^ Low >=60 GFR >60 ml/min/1.73m^ >=60 Laboratory test 08/21/2017 Andrew Ma([facility]) TSH 0.83 mIU/L 0.50-6.00 finding Lipid Profile 08/21/2017 Andrew Ma([facility]) Cholesterol 233 mg/dL High 120-200 Triglycerides 311 mg/dL High 30-200 HDL Cholesterol 40 mg/dL 30-85 LDL (Calculated) 131 CALC High 0-129 VLDL Cholesterol 62 mg/dL High 0-50 HDL Risk Factor 5.8 CALC High 0.0-4.4 Complete Blood Count 08/21/2017 Andrew Ma([facility]) WBC 8.2 x10^3/UL 3.6 -9.6 RBC 4.85 x10^6/UL 3.90-5.70 HGB 13.6 g/dL 12.1-17.2 HCT 42 % 36-50 MCV 86.0 fL 82.2-97.4 MCH 28.0 pg 27.6-33.3 MCHC 33.5 g/dL 33.0-35.5 RDW 16.0 % High 11.6-13.7 PLT 238 x10^3/UL 150-400 MPV 8.0 fL 7.4-10.4 Gran # 5.0 x10^3/UL 1.5-7.2 Lymph# 2.7 x10^3/UL 0.7-4.9 Mercer# 0.5 x10^3/UL 0.1-0.9 Gran % 60.1 % 42.2-75.2 Lymph % 33.2 % 20.5-51.1 Mercer% 6.7 % 1.7-9.3 Laboratory test 08/21/2017 Andrew Ma([facility]) LDL, Direct 135 mg/dL High 0-130 finding 1 SEE RESULT BELOW Name: LEONOR BECKHAM : [address]: Susan Amin NP Acct: [id number] Unit: [id number] AGE: 83 Location: [facility] Re11/07/18 SEX: F Status: REG REF SPEC: [id number] LUCA: 11/07/18-[address] [facility] [address]: Susan Amin NP REQ: [id number] RECD: 11/07/18 STATUS: COMP _ SOURCE: URINE SPDESC: ORDERED: Urine Culture COMMENTS: [id number] Urine Source: Random Procedure Result Reported Site Urine Culture Final 11/09/18- 09 ML Organism 1 ESCHERICHIA COLI Randolph Count >100,000 (Many) CFU/ML 1. ESCHERICHIA COLI M.I.C. RX --------- ------ Ampicillin 8 S Cefazolin <=4 S Cefepime <=1 S Ceftriaxone <=1 S Ciprofloxacin >=4 R Gentamicin <=1 S Levofloxacin >=8 R Meropenem <=0.25 S Nitrofurantoin <=16 S Tetracycline >=16 R Pipercillin/Tazobactam <=4 S Trimethoprim/Sulfamethoxazole >=320 R Amoxicillin/Clavulanic Acid 4 S Aztreonam <=1 S Contact the Microbiology Department for any additional antibiotic reporting. * - Main Lab . END OF REPORT DEPARTMENT OF PATHOLOGY, [address] [place] [address] Homero Arrington M.D. Director [facility] # [id number] 2 RESULTS VERIFIED BY REPEAT ANALYSIS 3 INTERPRET WITH CAUTION,SPECIMEN SLIGHTLY HEMOLYZED 4 RESULTS VERIFIED BY REPEAT ANALYSIS 5 In this sample, the concentration of methylmalonic acid (MMA) was minimally elevated. As the upper limit of the reference range varies in different laboratories from 0.4 to 0.6 nmol/mL. This finding could be considered normal, especially if the patient does not show other signs of vitamin B12 deficiency. ADDITIONAL INFORMATION This test was developed and its performance characteristics determined by [facility] in a manner consistent with CLIA requirements. This test has not been cleared or approved by the U.S. Food and Drug Administration. Test Performed by: [facility] - [address] [address] 6 The homocysteine concentration is elevated in this sample. Increased homocysteine has been associated with an increased risk of cardiovascular disease, cerebrovascular disease, peripheral arterial disease and thrombosis. Vitamin deficiencies (B6, B12 and folic acid) may also cause an increased homocysteine concentration. Inborn errors of methionine metabolism are a potential, but less likely, possibility for hyperhomocysteinemia. Consider plasma or serum methylmalonic acid analysis to rule out vitamin B12 deficiency. REFERENCE VALUE <=13 (Fasting) ADDITIONAL INFORMATION This test was developed and its performance characteristics determined by [facility] in a manner consistent with CLIA requirements. This test has not been cleared or approved by the U.S. Food and Drug Administration. Test Performed by: [facility] - [address] [address] 7 Messenger Floorperson: [id number] 8 SEE RESULT BELOW Name: LEONOR BECKHAM : [address]: Sammi Rose MD Acct: [id number] Unit: [id number] AGE: 82 Location: ED Re07/14/18 SEX: F Status: REG ER SPEC: [id number] LUCA: 07/14/[address] [facility] [address]: Sammi Rose MD REQ: [id number] RECD: 07/14/185732 STATUS: EFFIE HERMAN DR: Rufino Dickerson MD _ SOURCE: RUBIARYRaf [facility]: ORDERED: Flu A B Request Procedure Result Reported Site Rapid Influenza A B Request Final 07/14/18- 2359 ML Specimen received for Influenza A/B Molecular testing * ML - Main Lab . END OF REPORT DEPARTMENT OF PATHOLOGY, [address] [place] [address] Homero Arrington M.D. Director [facility] # [id number] 9 Result TnIDx:0.04 Called to [id number] at: 23:40:18 by:[id number] Read back by: [id number] Troponin-I testing on Plasma Separator Tubes (PST) has a known false positive rate of 0.20-0.40%. All positive troponins reflex immediate secondary confirmatory testing. 10 Critical Result LACT:2.2 Called to [id number] at: 23:39:58 by:[id number] Read back by:[id number] [facility] Severe Sepsis and Septic Shock Management Bundle Measure requires all lactic acids initially measuring >2.0 mmol/L be repeated. 11 SEE RESULT BELOW Name: LEONOR BECKHAM : [address]: Maribel Boles MD Acct: [id number] Unit: [id number] AGE: 82 Location: [facility] 434-01 Re07/15/18 Dis: 07/17/18 SEX: F Status: DIS IN SPEC: [id number] LUCA: 07/14/[address]: Sammi Rose MD REQ: [id number] RECD: 07/14/18 STATUS: EFFIE HERMAN DR: Rufino Dickerson MD _ SOURCE: BLOOD,VENO SPDES: ORDERED: Blood Cult Procedure Result Reported Site Aerobic Culture Bottle Final 07/19/18- 2314 ML No Growth Day 5 Anaerobic Culture Bottle Final 07/19/18- 2314 ML No Growth Day 5 * ML - Main Lab . END OF REPORT DEPARTMENT OF PATHOLOGY, [address] [place] [address] Homero Arrington M.D. Director [facility] # [id number] 12 Because ethnic data is not always readily available, this report includes an eGFR for both -Americans and non- Americans. The National Kidney Disease Education Program (NKDEP) does not endorse the use of the MDRD equation for patients that are not between the ages of 18 and 70, are , have extremes of body size, muscle mass, or nutritional status, or are non- or non-. According to the National Kidney Foundation, irrespective of diagnosis, the stage of the disease is based on the level of kidney function: Stage Description GFR(mL/min/1.73 m(2)) 1 Kidney damage with normal or decreased GFR 90 2 Kidney damage with mild decrease in GFR 60-89 3 Moderate decrease in GFR 30-59 4 Severe decrease in GFR 15-29 5 Kidney failure <15 (or dialysis) 13 RESULTS VERIFIED BY REPEAT ANALYSIS Procedures Date Code Description Status 07/29/2018 96735 Pulse Oximetry Completed 08/12/2009 51526564 Colonoscopy Completed 08/12/2009 11660599 Mammogram Completed Encounters Type Date Location Provider Dx Diagnosis Office Visit 11/07/2018 10:00a Main Office FRANKIE Salazar L29.8 Other pruritus R39.15 Urgency of urination R21 Rash and other nonspecific skin eruption Office Visit 10/14/2018 9:45a Main Office Rosina R21 Rash and other [place], Afnp-C nonspecific skin eruption Office Visit 09/15/2018 10:50a [facility] Rufino Dickerson, F34.1 Dysthymic M.DSabina disorder G25.81 Restless legs syndrome Office Visit 07/29/2018 11:00a [facility] Rufino Love J44.1 Chronic obstructive Mary Dickerson pulmonary disease w (acute) exacerbation I48.91 Unspecified atrial fibrillation G89.4 Chronic pain syndrome I10 Essential (primary) hypertension K21.9 Gastro-esophageal reflux disease without esophagitis F34.1 Dysthymic disorder Office Visit 05/24/2018 10:45a Main Office Beckie Tate, J01.90 Acute sinusitis, OVEREDGE SEWER unspecified Office Visit 04/03/2018 1:30p Main Office Rufino Dickerson, Z00.01 Encounter for Mary general adult medical exam w abnormal findings I10 Essential (primary) hypertension I48.91 Unspecified atrial fibrillation K21.9 Gastro-esophageal reflux disease without esophagitis G89.4 Chronic pain syndrome G47.419 Narcolepsy without cataplexy F34.1 Dysthymic disorder J30.89 Other allergic rhinitis Office Visit 01/30/2018 3:15p Main Office Aranza Nogueira, G89.4 Chronic pain NUTRITION INTERN syndrome I10 Essential (primary) hypertension Office Visit 08/21/2017 11:00a [facility] Rufino Love I1Sheldon Essential ( primary) Mary Dickerson hypertension F34.1 Dysthymic disorder I48.91 Unspecified atrial fibrillation M79.7 Fibromyalgia K21.9 Gastro-esophageal reflux disease without esophagitis G47.419 Narcolepsy without cataplexy G89.4 Chronic pain syndrome Z23 Encounter for immunization E78.1 Pure hyperglyceridemia Z23 Encounter for immunization Plan of Treatment Future Appointment(s):06/11/2019 1:20 pm - Rufino Dickerson M.D. at Main Aguazm8612/09/2018 - Susan Amin, FNPL29.8 Other pruritusComments:Try cutting the gabapentin dose in half for a week-- if she itches less, reduce to 100 mg in the morning and skip the evening doseIf it isn't helpful at one week, stay at original prescribed dose? Behavior modification-- there are many OT type "toys" for conditions like this-- they essentially amount to shreds of fabric tied together that she can "fiddle" with which may draw her mind away from the scratchingKeep your appointment with Dr MayerL20.81 Atopic avxunhgalkkqljuJ22.0 Primary generalized (osteo)arthritisComments:hot shower every other day if you could manage itTopical analgesics on sore joints-- rzjxmlimgI23.00 Insomnia, unspecifiedComments:sleep is a pattern, you're in a bad pattern right now for sleepIf you could improve your bedtime ritual you may have more successmore movement during the dayearlier bedtimes help-- 9pmAllComments:Medication Management Patient Understands medications he 's taking? Yes No Are there Barriers to Adherence? Yes No Has the patient been asked about herbal supplements and therapies, andOTC meds? Yes No As always, we strongly encourage a healthy diet and making physical activity a part of your every day life. If you have questions about how or where to start, please contact the office.
--- OUTSIDE RECORDS SUMMARY | 2018-12-18 16:39 | XMS REPORT | Continuity of Care Document ---
:1935 External Reference #:[id number] Author Name Sudheer Vasquez DO, MPH Address [address] [place] [address], [address] [place] [address] Care Team Providers Name Role Phone Rufino Dickerson M.D. Care Team Information Cork Wirer Unavailable Rufino Dickerson M.D. Primary Care Physician Unavailable Payers Date Identification Numbers Payment Provider Subscriber Policy Number: [id number] Medicare [place] [employer] PayID: [id number] [address] [place] [address] Policy Number: [id number] [facility] Leonor Castro [place] [address] [place] [address] Advance Directives Description No Information Available Problems Description No Information Family History Date Family Member(s) Observation Comments Father due to Alcoholism () Mother due to Natural Causes () Children 2 Siblings 5 Social History Type Date Description Comments Sex Unknown Marital Status Lives With Son Lives With Daughter in law Occupation Retired Work Status Not Currently Working ETOH Use Denies alcohol use Tobacco Use Start: Unknown End: Unknown Patient is a former smoker Recreational Drug Use Denies Drug Use Smoking Status Reviewed: 11/24/18 Patient is a former smoker Allergies, Adverse Reactions, Alerts Active Allergies Reaction Severity Comments Date Penicillin 06/24/2018 Medications Active Medications SIG Qnty Indications Ordering Date Provider Oxycodone HCL si by mouth 108tabs Sudheer Vasquez, 09/25/2018 5mg Tablets every 4 to 6 DO, MPH hours as directed chronic pain patient Fluoxetine HCL sig : 1 by Unknown 10mg Tablets mouth every day Xarelto 1 by mouth Unknown 15mg Tablets every day Metoprolol Tartrate 1 by mouth Unknown 50mg Tablets twice a day as directed Lisinopril si by mouth Unknown 20mg Tablets every day as directed Gabapentin 1 by mouth Unknown 100mg Capsules every 6 hours Hydrochlorothiazide 1 by mouth Unknown 12.5mg every day Capsules Risperidone M-Tab 1 by mouth Unknown 0.5mg Tablets every night Dispers Centrum Silver Adult 50+ 1 by mouth Unknown Adult 50 every day Tablets Ventolin HFA 1-2 puffs as Unknown 108(90Base) mcg/Act needed every Aerosol 4-6 hours for shortness for breath Advair Diskus 1 puffs twice a Unknown 250-50mcg/Dose day Aerosol Hydroxyzine HCL si by mouth Unknown 25mg Tablets every night at bedtime chronic pain patient History Medications Oxycodone HCL si by mouth 120tabs Sudheer Vasquez DO, 07/08/2018 - 5mg every 4 to 6 hours MPH 09/25/2018 Tablets as directed chronic pain patient Oxycodone HCL 1 by mouth every 60tabs Sudheer Vasquez DO, 06/24/2018 - 5mg 12 hours MPH 07/08/2018 Tablets Ocuvite Extra 1 by mouth every Unknown - day 11/24/2018 Tablets Immunizations Description No Information Available Vital Signs Date Vital Result Comment 11/24/2018 10:18am BP Systolic 128 mmHg BP Diastolic 80 mmHg Heart Rate 88 /min Respiratory Rate 20 /min Height 65 inches 5'5" Weight 165.00 lb Pain Level 8 Pain at this time. Pain Level With Medicine 7 on average with meds Pain Level Without Medicine 10 05/21 without meds BMI (Body Mass Index) 27.5 kg/m2 10/23/2018 10:25am BP Systolic 128 mmHg BP Diastolic 80 mmHg Heart Rate 82 /min Respiratory Rate 20 /min Height 65 inches 5'5" Weight 162.00 lb Pain Level 5 Pain at this time. Pain Level With Medicine 4 on average with meds Pain Level Without Medicine 10 05/21 without meds BMI (Body Mass Index) 27.0 kg/m2 09/25/2018 10:06am BP Systolic 128 mmHg BP Diastolic 78 mmHg Heart Rate 76 /min Respiratory Rate 20 /min Height 65 inches 5'5" Weight 162.00 lb Pain Level 8 Pain Level With Medicine 7 Pain Level Without Medicine 10 BMI (Body Mass Index) 27.0 kg/m2 08/26/2018 2:31pm BP Systolic 130 mmHg BP Diastolic 78 mmHg Heart Rate 80 /min Respiratory Rate 20 /min Height 65 inches 5'5" Weight 160.00 lb Pain Level 8 Pain at this time. Pain Level With Medicine 7 on average with meds Pain Level Without Medicine 10 05/21 without meds Pain Level After Procedure 6 BP Systolic Recheck 132 mmHg Pulse: 84 BP Diastolic Recheck 86 mmHg Pulse: 84 BMI (Body Mass Index) 26.6 kg/m2 07/22/2018 3:47pm BP Systolic 128 mmHg BP Diastolic 84 mmHg Heart Rate 88 /min Respiratory Rate 20 /min Body Temperature 97.6 F Afebrile Height 65 inches 5'5" Weight 160.00 lb Pain Level 8 Pain at this time. Pain Level With Medicine 7 on average with meds Pain Level Without Medicine 10 05/21 without meds BMI (Body Mass Index) 26.6 kg/m2 07/08/2018 2:59pm BP Systolic 130 mmHg BP Diastolic 80 mmHg Heart Rate 84 /min Respiratory Rate 20 /min Height 65 inches 5'5" Weight 155.00 lb Pain Level 8 Pain at this time. Pain Level With Medicine 8 on average with meds Pain Level Without Medicine 10 05/21 without meds BMI (Body Mass Index) 25.8 kg/m2 06/24/2018 1:42pm BP Systolic 134 mmHg BP Diastolic 84 mmHg Heart Rate 82 /min Respiratory Rate 20 /min Height 65 inches 5'5" Weight 155.00 lb Pain Level 8 Pain at this time. Pain Level Without Medicine 10 05/21 without meds BMI (Body Mass Index) 25.8 kg/m2 Results Description No Information Available Procedures Date Code Description Status 09/25/2018 49945 Brief Emotional/Behav Assessment W/ Scoring Doc Per Completed Standard Inst 08/26/2018 03210 Arthrocentesis/Aspiration/Inj Of Major Joint Or Bursa W/ Completed Ultra Encounters Type Date Location Provider Dx Diagnosis Office Visit 10/23/2018 Main Office as Of Sudheer Vasquez DO, G89.29 Other chronic pain 9:45a 09/12/13 MPH M15.0 Primary generalized (osteo)arthritis M54.2 Cervicalgia M25.551 Pain in right hip Z79.891 longterm (current) use of opiate analgesic Office Visit 09/25/2018 10:15a Main Office as Sudheer Vasquez G89.29 Other chronic Of 09/12/13 DO, MPH pain M15.0 Primary generalized (osteo)arthritis M54.2 Cervicalgia J44.1 Chronic obstructive pulmonary disease w (acute) exacerbation M25.551 Pain in right hip M46.1 Sacroiliitis, not elsewhere classified M25.50 Pain in unspecified joint I10 Essential (primary) hypertension I73.89 Other specified peripheral vascular diseases 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 Z13.31 Encounter for screening for depression Office Visit 08/26/2018 2:45p Main Office as Sudheer Vasquez G89.29 Other chronic Of 09/12/13 DO, MPH pain M15.0 Primary generalized (osteo)arthritis M54.2 Cervicalgia J44.1 Chronic obstructive pulmonary disease w (acute) exacerbation M25.551 Pain in right hip M46.1 Sacroiliitis, not elsewhere classified 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 Office Visit 07/22/2018 3:30p Main Office as Sudheer Vasquez G89.29 Other chronic Of 09/12/13 DO, MPH pain M15.0 Primary generalized (osteo)arthritis M54.2 Cervicalgia J44.1 Chronic obstructive pulmonary disease w (acute) exacerbation Z71.89 Other specified counseling 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 Office Visit 07/08/2018 3:00p Main Office as Sudheer Vasquez G89.29 Other chronic Of 09/12/13 DO, MPH pain M25.551 Pain in right hip M79.604 Pain in right leg M15.0 Primary generalized (osteo)arthritis M54.2 Cervicalgia 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 Office Visit 06/24/2018 1:45p Main Office as Sudheer Vasquez G89.29 Other chronic Of 09/12/13 DO, MPH pain M25.551 Pain in right hip M79.604 Pain in right leg M15.0 Primary generalized (osteo)arthritis F32.89 Other specified depressive episodes M54.2 Cervicalgia M54.6 Pain in thoracic spine M25.511 Pain in right shoulder Z13.89 Encounter for screening for other disorder Z71.3 Dietary counseling and surveillance Z71.89 Other specified counseling Z79.891 longterm (current) use of opiate analgesic Plan of Treatment Future Appointment(s):12/23/2018 10:00 am - Sudheer Vasquez DO, MPH at Main Office as Of 09/12/1403 - Sudheer Vasquez DO, MPHG89.29 Other chronic painComments:Chronic. Symptoms and complaints discussed and reviewed today. No significant changes in physical findings. Continue current medical pain management.M15.0 Primary generalized (osteo)arthritisComments:Chronic. Symptoms and complaints discussed and reviewed today. No significant changes in physical findings. Continue current medical pain management.M54.2 CervicalgiaComments: Chronic. Symptoms and complaints discussed and reviewed today. No significant changes in physical findings. Continue current medical pain management.M25.551 Pain in right hipComments:Chronic. Symptoms and complaints discussed and reviewed today. No significant changes in physical findings. Continue current medical pain management.Z79.891 longterm (current) use of opiate analgesicNew Labs:Urine Drug Screen, Ordered: 11/24/18Comments:Urine drug screen sample taken today to monitor opiate use and to monitor use of illicit substances.Will discuss results at next appointment.The following tests were ordered:6 AM, AMPH , BRITTANI, ADA, BUP, CARIS, COCM, COT, ETG, FENT, MCSHSG, OPI, OXY, PCP, TAPEN, XTSY, ZOLP. A urine drug test (UDT) was ordered for this patient and collected on site today. Creatinine has been ordered as well for specimen validity, not for kidney function. Preliminary UDT results are not final and should not be used to determine patient care or plan of treatment. Initially a qualitative immunoassay screen will be done. Any inconsistent or positive findings will be further tested with a more comprehensive quantitative confirmation LCMS study. It is part of the treatment process of prescribing controlled substances and is considered standard of care.AllComments:All above symptoms and complaints discussed as well as diagnoses reviewed.Continue trial of opioid pain management - note changes below; injection therapy, osteopathic manipulation (OMT), PT / modalities, and consults as needed to manage chronic pain.Side effects discussed; anticipatory guidance given. Patient clearly understands and agrees with all medical treatments and suggestions. All medicines prescribed are adequate and appropriate for this patient's complaint of pain, medical history, physical, and personal goals.Goals of Treatment are to provide adequate and appropriate multidisciplinary medical pain management to increase/ maintain patient's quality of life and functionality while maintaining satisfactory side effect profile and minimizing [facility] end-organ damage. Activity as toleratedContinue with PCP
[2018-12-18] MEDS ORDERED: diPHENhydraMINE IV* 50 MG/ML 1 ml VIAL (BENADRYL) IV ONE (18:39)
[2018-12-18] MEDS ORDERED: NS 0.9% 1000 ML** 1,000 ML IV ONE (18:39)
[2018-12-18] MEDS ORDERED: Dexamethasone IV* 4 MG/ML 1 ML (4 MG) IV SLOW PU ONE (18:39)
--- NOTE | 2018-12-18 18:43 | ED ---
Skin Complaint - HPI Summary HPI Summary: Pt is an 83 y/o F presenting to the ED with a chief skin complaint first onset 3 months ago. She states that she has seen a gallery intern but their results were inconclusive. She also reports that it has gotten worse in the past month or so. She reports abrasions, pruritus, and rashes diffusely on her body. She also reports that she fell last night and the night before by falling out of her bed. Her daughter stated that she was not aware of this. She thinks she lost consciousness and hit her head, and the pt is on Xarelto. She denies fevers , chills, nausea, or vomiting. - History of Current Complaint Chief Complaint: EDGeneral Time Seen by Provider: 12/18/18 18:22 Stated Complaint: ITCHING AND BLEEDING ALL OVER/FALL PER PT DAUGHTER Hx Obtained From: Patient Onset/Duration: Started Weeks Ago, Still Present, Worse Since - 1 month ago Skin Exposure Onset/Duration: Weeks Ago Timing: Constant, Lasting Weeks Onset Severity: Moderate Current Severity: Severe Pain Intensity: 8 Pain Scale Used: 0-10 Numeric Skin Location: Diffuse Character: Pruritus, Redness Aggravating Symptom(s): Nothing Alleviating Symptom(s): Nothing Associated Signs & Symptoms: Syncope - Additional Pertinent History Primary Care Physician: [id number] - Allergy/Home Medications Allergies/Adverse Reactions: Allergies Allergy/AdvReac Type Severity Reaction Status Date / Time Penicillins Allergy Unknown Verified 07/15/18 01:52 Reaction Details Home Medications: Home Medications FLUoxetine CAP* [PROzac CAP*] 10 mg PO DAILY 12/18/18 [History Confirmed ] hydrOXYzine HCL TAB* [Atarax 25 MG TAB*] 25 mg PO TID PRN 12/18/18 [History Confirmed 12/18/18] PMH/Surg Hx/FS Hx/Imm Hx Previously Healthy: Yes Cardiovascular History: Reports: Hx Hypertension, Other Cardiovascular Problems/ Disorders - AFIB Respiratory History: Reports: Hx Chronic Obstructive Pulmonary Disease (COPD), Hx Seasonal Allergies, Other Respiratory Problems/Disorders - HX of acute hypoxic respiratory failure, pneumonia Comment Only: Hx Asthma - unknown GI History: Denies: Hx Gastrointestinal Bleed History: Reports: Other Problems/Disorders - UTIs Musculoskeletal History: Reports: Hx Arthritis, Hx Back Problems Sensory History: Reports: Hx Contacts or Glasses Denies: Hx Legally Blind, Hx Deafness, Hx Hearing Aid Opthamlomology History: Reports: Hx Contacts or Glasses Denies: Hx Legally Blind Neurological History: Reports: Hx Migraine Denies: Hx CVA Psychiatric History: Reports: Hx Anxiety, Hx Depression Denies: Hx Oppositional [place] Disorder - Surgical History Surgery Procedure, Year, and Place: Appendectomy years ago she states; Hysterectomy years ago Infectious Disease History: No Infectious Disease History: Denies: Traveled Outside the [place] in Last 30 Days - Family History Known Family History: Positive: Other - mother and father of "old age" Negative: Blood Disorder - Social History Lives: Alone Alcohol Use: None Hx Substance Use: No Substance Use Type: Reports: None Hx Tobacco Use: Yes Smoking Status (MU): Former Smoker Type: Cigarettes Have You Smoked in the Last Year: No Review of Systems Negative: Fever, Chills Negative: Vomiting, Nausea Positive: Rash, Bruising, Other - pruritus Neurological: Other - hit head Positive: Syncope All Other Systems Reviewed And Are Negative: Yes Physical Exam - Summary Physical Exam Summary: GENERAL: Patient is a well-developed and nourished female who is lying comfortable in the stretcher. Patient is not in any acute respiratory distress. HEAD AND FACE: Normocephalic EYES: PERRLA, EOMI x 2. EARS: Hearing grossly intact. MOUTH: Oropharynx within normal limits. NECK: Supple, trachea is midline, no adenopathy, no JVD, no carotid bruit. CHEST: Symmetric, no tenderness at palpation LUNGS: Clear to auscultation bilaterally. No wheezing or crackles. CVS: Regular rate and rhythm, S1 and S2 present, no murmurs or gallops appreciated. ABDOMEN: Soft, non-tender. Bowel sounds are normal. No abnormal abdominal pulsations. EXTREMITIES: Full ROM in all major joints, no edema, no cyanosis or clubbing. NEURO: Alert and oriented x 3. No acute neurological deficits. Speech is normal and follows commands. SKIN: Dry and warm. Ecchymosis on the forehead and bilateral periorbital area. Multiple diffuse abrasions on upper extremities secondary to itching. Triage Information Reviewed: Yes Vital Signs On Initial Exam: Initial Vitals Temp Pulse Resp BP Pulse Ox 98.0 F 60 22 130/66 92 12/18/18 16:31 12/18/18 16:31 12/18/18 16:31 12/18/18 16:31 12/18/18 16:31 Vital Signs Reviewed: Yes - Dominguez Coma Scale Best Eye Response: 4 - Spontaneous Best Motor Response: 6 - Obeys Commands Best Verbal Response: 5 - Oriented Coma Scale Total: 15 Diagnostics - Vital Signs Vital Signs Temp Pulse Resp BP Pulse Ox 12/18/18 16:31 98.0 F 60 22 130/66 92 - Laboratory Result Diagrams: 12/18/18 18:44 12/18/18 18:44 Lab Statement: Any lab studies that have been ordered have been reviewed, and results considered in the medical decision making process. - CT Maxillofacial CT CT Interpretation Completed By: Radiologist Summary of CT Findings: No acute findings. ED physician has reviewed this report. Brain CT CT Interpretation Completed By: Radiologist Summary of CT Findings: No acute intracranial hemorrhage or significant mass effect. ED physician has reviewed this report. Re-Evaluation - Re-Evaluation 1st re-eval Re-Evaluation Time: 20:14 Change: Improved Comment: The pt reports feeling much better after her dose of steroids and Benadryl. Course/Dx - Course Course Of Treatment: Pt is an 83 y/o F presenting to the ED with a chief skin complaint first onset 3 months ago. She reports abrasions, pruritus, and rashes diffusely on her body. She also reports that she fell last night and the night before falling out of her bed. She thinks she lost consciousness and hit her head, and the pt is on Xarelto. She denies fevers, chills, nausea, or vomiting. Maxillofacial CT shows no acute findings. Brain CT shows no acute intracranial hemorrhage or significant mass effect. I reviewed the labs and saw that her Sodium was 129, Chloride was 95, Creatinine was 1.58, and BUN was 32. Those seem to be the pts baseline, and she was given IV fluids which most likely addressed these abnormalities. She was given IV steroids and a small dose of Benadryl which seemed to help immensely as of 2013. I discussed these results with the patient, she reports feeling much better. She is hemodynamically stable and safe for discharge. Strict return precautions given and she will f/u with her PCP and gallery intern. Her dx will be dermatitis and fall with head trauma. - Diagnoses Provider Diagnoses: Dermatitis, Head trauma, Fall Discharge - Sign-Out/Discharge Documenting (check all that apply): Patient Departure Patient Received Moderate/Deep Sedation with Procedure: No - Discharge Plan Condition: Stable Disposition: HOME Referrals: Rufino Dickerson MD [Primary Care Provider] - Additional Instructions: Please follow up with your primary care provider as well as your gallery intern. Return to the emergency department with any new or worsening symptoms. - Billing Disposition and Condition Condition: STABLE Disposition: Home - Attestation Statements Document Initiated by Scribe: Yes Documenting Scribe: Cinthia Hendrickson Provider For Whom Scribe is Documenting (Include Credential): Kim Lopes MD. Scribe Attestation: Cinthia Perry, tracyed for Kim Lopes MD. on 12/18/18 at 2107. Scribe Documentation Reviewed: Yes Provider Attestation: The documentation as recorded by the scribeCinthia accurately reflects the service I personally performed and the decisions made by , Tarik Lopes MD. Status of Scribe Document: Viewed
[2018-12-18 18:52] LABS: ABS Basophils 0.1 10^3/ul (0-0.2); ABS Eosinophils 0.7 10^3/ul (0-0.6); ABS Lymphocytes 2.9 10^3/ul (1.0-4.8); ABS Monocytes 1.1 10^3/ul (0-0.8); ABS Neutrophils 4.3 10^3/ul (1.5-7.7); Eosinophil % 8.1 %; Hematocrit 37 % (35-47); Hemoglobin 12.5 g/dL (12.0-16.0); Lymphocyte % 31.6 %; Mean Corpuscular HGB Conc 34 g/dL (31-36); Mean Corpuscular Hemoglobin 30 pg (27-31); Mean Corpuscular Volume 89 fL (80-97); Mean Platelet Volume 6.8 fL (7.4-10.4); Nucleated Red Blood Cells % 0.1; Platelet Count 293 10^3/uL (150-450); Red Blood Count 4.13 10^6 /uL (3.70-4.87); Red Cell Distribution Width 15 % (10.5-15); White Blood Count 9.1 10^3/uL (3.5-10.8)
[2018-12-18 19:01] LABS: Activated Partial Thrombo Time 36.8 seconds (26.0-36.3); INR 1.59 (0.82-1.09)
[2018-12-18 19:08] LABS: Albumin 4.4 g/dL (3.2-5.2); Albumin/Globulin Ratio 1.6 (1-3); BUN/Creatinine Ratio 20.3 (8-20); Calcium 9.8 mg/dL (8.6-10.3); EGFR African American 37.9 (>60); EGFR Non-African American 31.3 (>60); Globulin 2.8 g/dL (2-4); Potassium 4.8 mmol/L (3.5-5.0); Total Bilirubin 0.5 mg/dL (0.2-1.0); Total Protein 7.2 g/dL (6.4-8.9)
[2018-12-18 21:00] VITALS: BP 166/100
== END 2018-12-18 20:59 | disposition home or self-care (01) ==
LOC: ED 16:28
DX: L30.9 Dermatitis, unspecified (principal); S09.90XA Unspecified injury of head, initial encounter; W19.XXXA Unspecified fall, initial encounter; Z91.81 History of falling; I10 Essential (primary) hypertension; I48.91 Unspecified atrial fibrillation; J44.9 Chronic obstructive pulmonary disease, unspecified; F41.9 Anxiety disorder, unspecified; F32.9 Major depressive disorder, single episode, unspecified; J96.11 Chronic respiratory failure with hypoxia; Z88.0 Allergy status to penicillin; Z87.01 Personal history of pneumonia (recurrent); Z87.891 Personal history of nicotine dependence
CPT/HCPCS: 36415; 70450; 70486; 80053; 85025; 85610; 85730; 96361; 96374; 96375; 99282; J1100; J1200

== ENCOUNTER 2019-01-10 11:26 | Inpatient (IN) | payer MEDICARE, OTHER ==
--- NOTE | 2019-01-10 11:32 | ED ---
Altered Mental Status - HPI Summary HPI Summary: This patient is an 83 year old F brought in by ambulance to [facility] since she was found by family this morning in bed covered in her own feces. EMS reports recent fall 2 days ago, with altered mental status, and decreased appetite. EMS reports SPO2 of 78% on RA that improved to 89% on 5L O2 NC, BP of 80/50, and pulse of 104. EMS did not provided fluids. Patient reports right arm and right hip pain. Reports at home O2 use at night, for COPD. Current anticoagulant use, per med list provided by EMS. - History Of Current Complaint Stated Complaint: WEAKNESS,SEMI RESPOSIVE,PER EMS Hx Obtained From: Patient, EMS Onset/Duration: Unknown, Still Present Aggravating Factor(s): Unknown Alleviating Factor(s): Nothing Associated Signs And Symptoms: Positive: Weakness - Allergies/Home Medications Allergies/Adverse Reactions: Allergies Allergy/AdvReac Type Severity Reaction Status Date / Time Penicillins Allergy Unknown Verified 01/10/19 13:27 Reaction Details PMH/Surg Hx/FS Hx/Imm Hx Endocrine/Hematology History: Reports: Hx Anticoagulant Therapy Cardiovascular History: Reports: Hx Hypertension, Other Cardiovascular Problems/ Disorders - AFIB Respiratory History: Reports: Hx Chronic Obstructive Pulmonary Disease (COPD), Hx Seasonal Allergies, Other Respiratory Problems/Disorders - HX of acute hypoxic respiratory failure, pneumonia Comment Only: Hx Asthma - unknown GI History: Denies: Hx Gastrointestinal Bleed History: Reports: Other Problems/Disorders - UTIs Musculoskeletal History: Reports: Hx Arthritis, Hx Back Problems Sensory History: Reports: Hx Contacts or Glasses Denies: Hx Legally Blind, Hx Deafness, Hx Hearing Aid Opthamlomology History: Reports: Hx Contacts or Glasses Denies: Hx Legally Blind Neurological History: Reports: Hx Migraine Denies: Hx CVA Psychiatric History: Reports: Hx Anxiety, Hx Depression Denies: Hx Oppositional [place] Disorder - Surgical History Surgery Procedure, Year, and Place: Appendectomy years ago she states; Hysterectomy years ago - Family History Known Family History: Positive: Other - mother and father of "old age" Negative: Blood Disorder - Social History Alcohol Use: None Hx Substance Use: No Substance Use Type: Reports: None Hx Tobacco Use: Yes Smoking Status (MU): Former Smoker Type: Cigarettes Have You Smoked in the Last Year: No Review of Systems Positive: Shortness Of Breath Positive: Myalgia - right arm and hip pain Positive: Weakness All Other Systems Reviewed And Are Negative: Yes Physical Exam - Summary Physical Exam Summary: GENERAL: Patient is a slightly altered F who is lying comfortable in the stretcher. Patient is not in any acute respiratory distress. HEAD AND FACE: Normocephalic EYES: PERRLA, EOMI x 2. EARS: Hearing grossly intact. MOUTH: Oropharynx within normal limits. NECK: Supple, trachea is midline, no adenopathy, no JVD, no carotid bruit. CHEST: Symmetric, no tenderness at palpation LUNGS: Clear to auscultation bilaterally. No wheezing or crackles. CVS: Regular rate and rhythm, S1 and S2 present, no murmurs or gallops appreciated. ABDOMEN: Soft, non-tender. Bowel sounds are normal. No abnormal abdominal pulsations. EXTREMITIES: Full ROM in all major joints, no edema, no cyanosis or clubbing. NEURO: Slightly altered, able to answer questions appropriately. No acute neurological deficits. Speech is normal and follows commands. GCS 14. SKIN: Dry and warm Yeast like rash under bilateral breast, Previous surgical scar that is clean dry and intact Triage Information Reviewed: Yes Vital Signs Reviewed: Yes - Dominguez Coma Scale Best Eye Response: 4 - Spontaneous Best Motor Response: 6 - Obeys Commands Best Verbal Response: 4 - Confused Coma Scale Total: 14 Diagnostics - Laboratory Result Diagrams: 01/10/19 14:59 01/10/19 14:59 Lab Statement: Any lab studies that have been ordered have been reviewed, and results considered in the medical decision making process. - Radiology CXR Radiology Interpretation Completed By: Radiologist Summary of Radiographic Findings: No radiographic evidence for acute cardiopulmonary abnormality on this. portable chest x-ray. ED physician has reviewed this report. Hip/Pelvis XR Radiology Interpretation Completed By: Radiologist Summary of Radiographic Findings: There is no radiographically apparent acute fracture or dislocation involving. the right hip or pelvis. If the patient's symptoms persist follow-up imaging is recommended. ED Physician has reviewed this report. Right shoulder XR Radiology Interpretation Completed By: Radiologist Summary of Radiographic Findings: NO RADIOGRAPHICALLY APPARENT ACUTE FRACTURE OR DISLOCATION INVOLVING THE. RIGHT SHOULDER. ED Physician has reviewed this report. - CT Brain CT CT Interpretation Completed By: Radiologist Summary of CT Findings: Age-appropriate chronic findings as described in the report without. identification of acute intracranial abnormality. ED physician has reviewed this report. A/P CT Interpretation Completed By: Radiologist Summary of CT Findings: 1. Hypoventilatory changes at the right worse than left lung base are morphologically more. consistent with atelectasis than pneumonia. 2. There is questionable visualization of the gallbladder with a common bile duct that. appears to be dilated up to 1.6 cm. Please correlate to the details of the patient's. surgical history (i.e., as she undergone cholecystectomy at some point in her life). If. clinically warranted superior characterization of the gallbladder and biliary system could. be made with ultrasound. 3. Evaluation of the gastrointestinal tract is limited in the absence of oral contrast. There is possible long segment wall thickening involving the colon. Most of the colon is. fluid-filled as is the small bowel. This could be seen in the setting of infectious or. inflammatory bowel disease. There is trace free fluid in the dependent left pelvis. There. is no definite pneumatosis, an appearance that would be characteristic of bowel. ischemia/infarction. 4. Nonobstructive renal calculi bilaterally with extrarenal pelves. This appearance is not. significantly changed since the May 06, 2017 CT examination. 5. The Osorio catheter is displaced into the right side of the pelvis. I recommend a Osorio. catheter the gently drawn back approximately 5 to 6 cm to better position the balloon just. above the trigone. Please correlate to production of urine from the Osorio catheter. If. there exists any clinical suspicion the Osorio catheter is outside the bladder lumen,. placement can be confirmed with portable bedside radiography after injecting dilute. Gastrografin into the Osorio catheter. 6. There are additional chronic, degenerative and iatrogenic findings described in the. body the report unlikely to be directly related to the patient's current clinical. presentation. ED Physician has reviewed this report. - EKG 1159 Cardiac Rate: NL - 96 BPM EKG Rhythm: Sinus Rhythm Summary of EKG Findings: first degres av block with SD interval at 231, Q waves in anterior leads Altered Mental Statu Course/Dx - Course Course Of Treatment: 83 year old F brought in by ambulance to [facility] since she was found by family this morning in bed covered in her own feces. EMS reports recent fall 2 days ago, with altered mental status, and decreased appetite. EMS reports hypoxic, tachycardic, and hypotensive vital signs. Patient is initially given 2,250ml of IVF, 2 duoneb treatments, 8mg of Decadron, and 25mcg of Fentanyl. Workup remarkable for C-reactive protien of 152, WBC 20.5, lactic acid 6.0, anion gap 19, troponin of 0.23, BUN 46, creatinine 3.73, bicarb 17, and blood glucose of 275. Patient is additionally given 250 ml of vancomycin and 1gm of Aztreonam due to penicllin allergy at 1335, case discussed with Dr Loza, inventory specialist, who recommends a chest CTA. CT A/P reveals, "1. Hypoventilatory changes at the right worse than left lung base are morphologically more. consistent with atelectasis than pneumonia. 2. There is questionable visualization of the gallbladder with a common bile duct that. appears to be dilated up to 1.6 cm. Please correlate to the details of the patient's. surgical history (i.e., as she undergone cholecystectomy at some point in her life). If. clinically warranted superior characterization of the gallbladder and biliary system could. be made with ultrasound. 3. Evaluation of the gastrointestinal tract is limited in the absence of oral contrast. There is possible long segment wall thickening involving the colon. Most of the colon is. fluid-filled as is the small bowel. This could be seen in the setting of infectious or. inflammatory bowel disease. There is trace free fluid in the dependent left pelvis. There. is no definite pneumatosis, an appearance that would be characteristic of bowel. ischemia/infarction. 4. Nonobstructive renal calculi bilaterally with extrarenal pelves. This appearance is not. significantly changed since the May 06, 2017 CT examination. 5. The Osorio catheter is displaced into the right side of the pelvis. I recommend a Osorio. catheter the gently drawn back approximately 5 to 6 cm to better position the balloon just. above the trigone. Please correlate to production of urine from the Osorio catheter. If. there exists any clinical suspicion the Osorio catheter is outside the bladder lumen,. placement can be confirmed with portable bedside radiography after injecting dilute. Gastrografin into the Osorio catheter. 6. There are additional chronic, degenerative and iatrogenic findings described in the. body the report unlikely to be directly related to the patient's current clinical. presentation." as per radiologist. After Dr. Loza's evaluation, he agrees to admit this patient to the ICU. Patient is agreeable with this plan. - Diagnoses Provider Diagnoses: Acute kidney injury, Hyperglycemia, Sepsis secondary to UTI - Provider Notifications Discussed Care Of Patient With: Dago - inventory specialist Time Discussed With Above Provider: 13:35 Instructed by Provider To: MD Will See In ED - agrees to admission 1400 - Critical Care Time Critical Care Time: 30-74 min Discharge - Sign-Out/Discharge Documenting (check all that apply): Patient Departure - admit - Discharge Plan Condition: Critical Disposition: ADMITTED TO [facility] - Billing Disposition and Condition Condition: CRITICAL Disposition: Admitted to [facility] - Attestation Statements Document Initiated by Scribe: Yes Documenting Scribe: Divina Menjivar Provider For Whom Usha is Documenting (Include Credential): Kim Lopes MD Scribe Attestation: Divina Perry, scribed for Kim Lopes MD on 01/10/19 at 2108. Scribe Documentation Reviewed: Yes Provider Attestation: The documentation as recorded by the Divina miner accurately reflects the service I personally performed and the decisions made by Kim mcwilliams MD Status of Scribe Document: Viewed
[2019-01-10] MEDS ORDERED: NS 0.9% 1000 ML** 1,000 ML IV.FLUID IV ONE (11:35)
[2019-01-10] MEDS ORDERED: Albuterol/Ipratropium NEB.SOL* Albuterol 2.5 MG/Ipratropium 0.5 MG 3 ML INH ONE ×2 (11:38→11:40)
[2019-01-10] MEDS ORDERED: fentaNYL* 50 MCG/ML 2 ML VIAL (100 MCG VIAL) IV SLOW PU ONE (11:39)
[2019-01-10] MEDS ORDERED: Dexamethasone IV* 4 MG/ML 1 ML (4 MG) IV SLOW PU ONE (11:40)
--- OUTSIDE RECORDS SUMMARY | 2019-01-10 11:47 | XMS REPORT | Continuity of Care Document ---
:1935 External Reference #:[id number] Author Name Sudheer Vasquez DO MPH Address [address] [place] [address], [address] [place] [address] Care Team Providers Name Role Phone Rufino Dickerson M.D. Care Team Information Technical Solution Architect Unavailable Rufino Dickerson M.D. Primary Care Physician Unavailable Payers Date Identification Numbers Payment Provider Subscriber Policy Number: [id number] [employer] [place] Leonor Castro [place] PayID: [id number] [address] [place] [address] Policy Number: [id number] [facility] Leonor Castro Chapincito [address] [place] [address] Family History Date Family Member(s) Observation Comments [...] Use Denies Drug Use Smoking Status Reviewed: 12/23/18 Patient is a former smoker Allergies, Adverse Reactions, Alerts Active Allergies Reaction Severity Comments Date Penicillin 06/24/2018 Medications Active Medications SIG Qnty Indications Ordering Date Provider Hydrocodone-Acetaminophen take 1 tablet by 60tabs Sudheer Vasquez, 2018 5-325mg mouth every 8 to DO, MPH Tablets 12 hours as directed chronic pain. Fluoxetine HCL sig : 1 by mouth Unknown 10mg Tablets every day Xarelto 1 by mouth every Unknown 15mg Tablets day Metoprolol Tartrate 1 by mouth twice Unknown 50mg Tablets a day as directed Lisinopril si by mouth Unknown 20mg Tablets every day as directed Gabapentin 1 by mouth every Unknown 100mg Capsules 6 hours Hydrochlorothiazide 1 by mouth every Unknown 12.5mg day Capsules Risperidone M-Tab 1 by mouth every Unknown 0.5mg Tablets night Dispers Centrum Silver Adult 50+ 1 by mouth every Unknown Adult 50 day Tablets Ventolin HFA 1-2 puffs as Unknown 108(90Base) mcg/Act needed every 4-6 Aerosol hours for shortness for breath Advair Diskus 1 puffs twice a Unknown 250-50mcg/Dose day Aerosol Hydroxyzine HCL si by mouth Unknown 25mg Tablets every night at bedtime chronic pain patient History Medications Oxycodone HCL si by mouth 120tabs Sudheer Vasquez DO, 09/25/2018 - 5mg every 4 to 6 hours MPH 12/23/2018 Tablets as directed chronic pain patient Oxycodone HCL si by mouth 120tabs Sudheer Vasquez DO, 07/08/2018 - 5mg every 4 to 6 hours MPH 09/25/2018 Tablets as directed chronic pain patient Oxycodone HCL 1 by mouth every 60tabs Sudheer Vasquez DO, 06/24/2018 - 5mg 12 hours MPH 07/08/2018 Tablets Ocuvite Extra 1 by mouth every Unknown - day 11/24/2018 Tablets Vital Signs Date Vital Result Comment 12/23/2018 10:11am BP Systolic 128 mmHg BP Diastolic 82 mmHg Heart Rate 84 /min Respiratory Rate 20 /min Height 65 inches 5'5" Weight 165.00 lb Pain Level 7 Pain at this time. Pain Level With Medicine 7 on average with meds Pain Level Without Medicine 9 05/21 without meds BMI (Body Mass Index) 27.5 kg/m2 11/24/2018 10:18am BP Systolic 128 mmHg BP [...] meds BMI (Body Mass Index) 25.8 kg/m2 Procedures Date Code Description Status 09/25/2018 00505 Brief Emotional/Behav Assessment W/ Scoring Doc Per Completed Standard Inst 08/26/201850973 Arthrocentesis/Aspiration/Inj Of Major Joint Or Bursa W/ Completed Ultra Encounters Type Date Location Provider Dx Diagnosis Office Visit 11/24/2018 Main Office as Of Sudheer Vasquez DO G89.29 Other chronic pain 10:15a 09/12/13 MPH M15.0 Primary generalized (osteo)arthritis M54.2 Cervicalgia M25.551 Pain in right hip 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 Office Visit 10/23/2018 9:45a Main Office as Sudheer Vasquez G89.29 Other chronic Of 09/12/13 DO, MPH pain M15.0 Primary generalized (osteo)arthritis M54.2 Cervicalgia M25.551 Pain in right hip 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 Office Visit 09/25/2018 10:15a Main Office as Sudheer Vasquez G89.29 Other chronic Of 09/12/13 DO, MPH pain M15.0 Primary generalized (osteo)arthritis M54.2 Cervicalgia J44.1 Chronic obstructive pulmonary disease w (acute) exacerbation M25.551 Pain in right hip M46.1 Sacroiliitis, not elsewhere classified M25.50 Pain in unspecified joint I10 Essential (primary) hypertension I73.89 Other specified peripheral vascular diseases Z79.891 jail (current) use of opiate analgesic Z13.31 Encounter for screening for depression Office Visit 08/26/2018 2:45p Main Office as Sudheer Vasquez G89.29 Other chronic Of 09/12/13 DO, MPH pain M15.0 Primary generalized (osteo)arthritis M54.2 Cervicalgia J44.1 Chronic obstructive pulmonary disease w (acute) exacerbation M25.551 Pain in right hip M46.1 Sacroiliitis, not elsewhere classified 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 Office Visit 07/22/2018 3:30p Main Office as Sudheer Vasquez G89.29 Other chronic Of 09/12/13 DO, MPH pain M15.0 Primary generalized (osteo)arthritis M54.2 Cervicalgia J44.1 Chronic obstructive pulmonary disease w (acute) exacerbation Z71.89 Other specified counseling Z79.891 jail (current) use of opiate analgesic Office Visit 07/08/2018 3:00p Main Office as Sudheer Vasquez, G89.29 Other chronic Of 09/12/13 DO MPH pain M25.551 Pain in right hip M79.604 Pain in right leg M15.0 Primary generalized (osteo)arthritis M54.2 Cervicalgia Z79.891 jail (current) use of opiate analgesic Office Visit 06/24/2018 1:45p Main Office as Sudheer Vasquez, G89.29 Other chronic Of 09/12/13 , MPH pain M25.551 Pain in right hip M79.604 Pain in right leg M15.0 Primary generalized (osteo)arthritis F32.89 Other specified depressive episodes M54.2 Cervicalgia M54.6 Pain in thoracic spine M25.511 Pain in right shoulder Z13.89 Encounter for screening for other disorder Z71.3 Dietary counseling and surveillance Z71.89 Other specified counseling 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 Symptoms and complaints discussed and reviewed today. No significant changes in physical findings. Continue current medical pain management.M15.0 Primary generalized (osteo)arthritisComments:Chronic. Symptoms and complaints discussed and reviewed today. No significant changes in physical findings. Continue current medical pain management.M25.551 Pain in right hipComments: Chronic. Symptoms and complaints discussed and reviewed today. No significant changes in physical findings. Continue current medical pain management.M54.2 CervicalgiaComments:Chronic. Symptoms and complaints discussed and reviewed today. No significant changes in physical findings. Continue current medical pain management.Z79.891 jail (current) use of opiate analgesicNew Labs: Urine Drug Screen, Ordered: 12/23/18Comments:Urine drug screen sample taken today to monitor [...] controlled substances and is considered standard of care.AllNew Medication: Hydrocodone-Acetaminophen 5-325 mg - take 1 tablet by mouth every 8 to 12 hours as directed chronic pain.Comments:All above symptoms and complaints discussed as well as diagnoses reviewed.Continue trial of opioid pain management - note changes below; injection therapy, osteopathic manipulation (OMT), PT / modalities, and consults as needed to manage chronic pain.Side effects discussed ; anticipatory guidance given. Patient clearly understands and agrees with all medical treatments and suggestions. All medicines prescribed are adequate and appropriate for this patient's complaint of pain, medical history, physical, and personal goals.Goals of Treatment are to provide adequate and appropriate multidisciplinary medical pain management to increase/ maintain patient's quality of life and functionality while maintaining satisfactory side effect profile and minimizing termite inspector end-organ damage. Activity as toleratedContinue with PCP
[2019-01-10 12:52] LABS: Hematocrit 45 % (35-47); Hemoglobin 14.7 g/dL (12.0-16.0); Mean Corpuscular HGB Conc 33 g/dL (31-36); Mean Corpuscular Hemoglobin 30 pg (27-31); Mean Corpuscular Volume 89 fL (80-97); Mean Platelet Volume 7.6 fL (7.4-10.4); Platelet Count 359 10^3/uL (150-450); Red Blood Count 4.99 10^6 /uL (3.70-4.87); Red Cell Distribution Width 15 % (10.5-15); White Blood Count 20.5 10^3/uL (3.5-10.8)
[2019-01-10 13:01] LABS: Activated Partial Thrombo Time 27.5 seconds (26.0-38.0)
[2019-01-10 13:10] LABS: ABS Basophils 0.1 10^3/ul (0-0.2); ABS Lymphocytes 0.8 10^3/ul (1.0-4.8); ABS Monocytes 2.1 10^3/ul (0-0.8); ABS Neutrophils 17.6 10^3/ul (1.5-7.7); ALT 28 U/L (7-52); AST 78 U/L (13-39); Albumin 3.8 g/dL (3.2-5.2); Albumin/Globulin Ratio 1.5 (1-3); Alkaline Phosphatase 180 U/L (34-104); Anion Gap 19 mmol/L (2-11); BUN/Creatinine Ratio 12.3 (8-20); Blood Urea Nitrogen 46 mg/dL (6-24); CO2 Carbon Dioxide 17 mmol/L (22-32); Calcium 9.2 mg/dL (8.6-10.3); Chloride 85 mmol/L (101-111); EGFR African American 14.1 (>60); EGFR Non-African American 11.6 (>60); Eosinophil % 0.1 %; Globulin 2.6 g/dL (2-4); Glucose 275 mg/dL (70-100); Lymphocyte % 3.8 %; Potassium 4.9 mmol/L (3.5-5.0); Sodium 121 mmol/L (135-145); Total Protein 6.4 g/dL (6.4-8.9)
[2019-01-10] MEDS ORDERED: Vancomycin(*) 1,000 MG in NS 0.9% 250 ML* 250 ML IVPB ONE ×2 (13:17→14:15)
[2019-01-10] MEDS ORDERED: Aztreonam (*) 1 GM in NS 0.9% 50 ML* 50 ML IVPB ONE (13:17)
[2019-01-10 13:22] LABS: Troponin I 0.23 ng/mL (<0.04)
[2019-01-10 13:37] LABS: Urine Appearance Turbid; Urine Bacteria 1+ (Absent); Urine Bilirubin Negative (Negative); Urine Blood 2+ (Negative); Urine Color Amber; Urine Glucose Negative (Negative); Urine Ketones Trace (Negative); Urine Nitrite Negative (Negative); Urine Protein 2+(100 mg/dL) (Negative); Urine Red Blood Cell 3+(>10/hpf) (Absent); Urine Specific Gravity 1.011 (1.010-1.030); Urine Squamous Epithelial Cell Present (Absent); Urine Urobilinogen Negative (Negative); Urine White Blood Cell 3+(>20/hpf) (Absent)
[2019-01-10] MEDS ORDERED: NS 0.9% 1000 ML** 1,000 ML IV ONE ×2 (14:14→15:30)
[2019-01-10 14:15] LABS: Creatine Kinase 2766 U/L (10-223)
[2019-01-10] MEDS ORDERED: Acetaminophen TAB* 325 MG PO PRN (14:41)
[2019-01-10] MEDS ORDERED: NS 0.9% 100 ML* 100 ML IV SCH (15:00)
[2019-01-10 15:07] LABS: Hematocrit 41 % (35-47); Hemoglobin 13.6 g/dL (12.0-16.0); Mean Corpuscular HGB Conc 33 g/dL (31-36); Mean Corpuscular Hemoglobin 29 pg (27-31); Mean Corpuscular Volume 89 fL (80-97); Mean Platelet Volume 7.2 fL (7.4-10.4); Platelet Count 286 10^3/uL (150-450); Red Blood Count 4.62 10^6 /uL (3.70-4.87); Red Cell Distribution Width 15 % (10.5-15)
[2019-01-10 15:24] LABS: Albumin 3.1 g/dL (3.2-5.2); Albumin/Globulin Ratio 1.3 (1-3); BUN/Creatinine Ratio 15.3 (8-20); EGFR African American 17.2 (>60); EGFR Non-African American 14.2 (>60); Globulin 2.3 g/dL (2-4); Magnesium 2.5 mg/dL (1.9-2.7); Total Bilirubin 0.6 mg/dL (0.2-1.0); Total Protein 5.4 g/dL (6.4-8.9)
[2019-01-10 15:29] LABS: Potassium 5.7 mmol/L (3.5-5.0)
[2019-01-10] MEDS ORDERED: metroNIDAZOLE * 500 MG TABLET PO SCH (16:00)
[2019-01-10] MEDS ORDERED: NS 0.9% 1000 ML** 1,000 ML IV SCH (18:00)
--- NOTE | 2019-01-10 18:18 | HP ---
HISTORY AND PHYSICAL: DATE OF ADMISSION: 01/10/19 CHIEF COMPLAINT: Change in mental status. HISTORY OF PRESENT ILLNESS: An 83-year-old female with multiple medical problems, presents with change in mental status. Her son found her today in bed covered in feces. As per son and [id number], the patient has been not feeling well for the past several days. She has been not eating during that time. Yesterday, she started complaining of abdominal pain. Today, she was mentally off. Normally they tell me she is normally mentally alert responds and communicates without issues. Patient is bedbound primarily. The patient was then brought to the emergency room for further evaluation. She was found to have a blood pressure of 130/69, O2 sat at 92% on 7 L with a heart rate in the 90s and AF. On exam though, she had tender abdomen to palpation, specifically in the umbilical area. On exam, she was A and O x2 (person and place but not to year). ICU was called because of possible acute abdomen and sepsis. PAST MEDICAL HISTORY: COPD; atrial fibrillation, on a NOAC; schizophrenia; chronic right hip pain for which she takes oxycodone. She is primarily bedbound and taken care of by the son and [id number]. Hypertension. MEDICATIONS: 1. Hydrocodone 5 mg p.o. b.i.d. 2. Hydrochlorothiazide 12.5 mg daily. 3. Fluoxetine 10 mg p.o. daily. 4. Gabapentin 100 mg p.r.n. at night. 5. Lisinopril 20 mg p.o. daily. 6. Xarelto 15 mg q.a.m. 7. Risperidone 0.5 mg p.o. b.i.d. 8. Metoprolol 50 mg p.o. q.h.s. 9. Hydroxyzine 25 mg q.8 p.r.n. 10. Centrum. 11. Ocuvite. ALLERGIES: PENICILLIN, unknown reaction. FAMILY HISTORY: Unclear. SOCIAL HISTORY: She used to smoke. She lives with her son and daughter-in- law. The patient is primarily bedbound, but recently has not been wanting to get out of bed at all. When she does ambulate, she does use a walker. The [id number] told me that they are considering some kind of senior living setting because they are having difficulty taking care of her. REVIEW OF SYSTEMS: A 14-point review of systems as mentioned in the HPI; otherwise negative. PHYSICAL EXAMINATION GENERAL: A and O x2. HEENT: Extraocular movements intact. Mucous membranes are moist. HEART: Regular rate and rhythm. LUNGS: Clear to auscultation. ABDOMEN: Soft, tender to palpation in the umbilical area with no rebound or guarding. No peritoneal signs. Positive bowel sounds. EXTREMITIES: Right hip is tender to palpation. No lower extremity edema. NEURO: Moving all extremities. DIAGNOSTIC STUDIES/LAB DATA: White blood cells 20.5, hemoglobin is 14.7, hematocrit is 45, platelets are 359, PT/INR is 27.5/1. ABG is 7.27/35/79/17 with an O2 sat of 98%. Sodium is 121. Potassium is 4.9, chloride is 85, bicarb is 17, anion gap is 19, BUN is 46, creatinine is 3.73, glucose is 275, lactic acid is 6.0, calcium is 9.2, magnesium is 2.4. Total bilirubin is 0.7, AST is 78, ALT is 28, alk phos is 180, ammonia is 36. CK is 2766, troponin is 0.23. C-reactive protein is 152.30, BNP is 198, albumin is 3.8, lipase is less than 10. Urine is 3+ white blood cells, leuko esterase is positive, bacteria 1+ . CT of the head is negative. X-ray of the hip and pelvis is negative for fractures. Chest x-ray is unremarkable. CT of the abdomen and pelvis is pending. ASSESSMENT: An 83-year-old female with multiple medical problems who presents with a change in mental status after being found in stool this morning. For the past several days, she has been taking less p.o and not feeling well. She also complains of abdominal pain in the past 24 hours. She was found in feces this morning by her family members. Exam is notable for some tenderness to palpation in the umbilical area. No peritoneal signs. She is A and O x2. She is hemodynamically stable and oxygenating well. AF. Labs are notable for elevated white count with a left shift, hyponatremia with elevated renal functions which are new for her, lactic acidosis, mildly elevated troponins, and high CRP and UA that is consistent with urinary tract infection. PLAN: 1. Neuro. Refrain from further sedation. Refrain from narcotics if possible. Monitor for exacerbation of her delirium. Again, a family member stated that she is A and O x3 at baseline. She does have some right hip issues and does take narcotics. Will however try to refrain from further narcotics now. 2. Respiratory. She is oxygenating well on nasal cannula. Continue to monitor. 3. Cardiac. She is hemodynamically stable for the moment. Old echo from 2018 shows normal LV function and no other issues. She does have a mildly elevated troponin. We will repeat one later on. This is probably secondary to demand ischemia with mild bump from today. 4. Renal. New-onset JULES with a metabolic acidosis. We will continue to hydrate her. She also has hyponatremia. Do not correct sodium greater than 10 mEq daily. Check urine osms. Need to make sure this is secondary also to volume depletion. JULES can also be secondary to hydrochlorothiazide as well as SHERLEY inhibitors she takes. She does not apparently take any NSAIDs. We will also check a renal ultrasound, check also urine protein and creatinines. She does not have any history of diabetes or diabetic nephropathy, but she does have high fingersticks at the moment. 5. GI. She does have a tender abdomen. Was not able to give her contrast for studies today. We will need to monitor abdominal exams. She may need also surgical evaluation if she does get worse. Still have to follow up with the radiologist regarding CT scans of her abdomen and pelvis. Stomach is distended with fluid in the radiology studies. 6. Endo. Elevated fingersticks. This is new. She does not have a history of diabetes. Check HbA1c. 7. ID. Sepsis. cover the patient with aztreonam and a dose of vancomycin now. allergy to PCN. will follow up the urine cultures. We will also need to follow up further blood cultures. We will repeat a lactic acid in the afternoon. Consider monitoring hemodynamics. The patient has been given already several liters of fluid in the ED. . 8. DVT prophylaxis. She was on a NOAC. We will hold NOAC in case she needs any further interventions in the next 24 hours. 9. Old records do state she is DNR/DNI. When i asked daughter in-law about this she did not know anything about code status and asked for some more time to discuss this further. [id number]/[facility] #: [id number] CANDELARIA
[2019-01-10] MEDS ORDERED: Metoprolol Tartrate TAB* 25 MG PO SCH (21:00)
[2019-01-10 21:18] LABS: ALT 35 U/L (7-52); AST 111 U/L (13-39); Albumin 3.3 g/dL (3.2-5.2); Albumin/Globulin Ratio 1.4 (1-3); Alkaline Phosphatase 154 U/L (34-104); Anion Gap 15 mmol/L (2-11); Blood Urea Nitrogen 48 mg/dL (6-24); CO2 Carbon Dioxide 17 mmol/L (22-32); Calcium 7.9 mg/dL (8.6-10.3); Chloride 96 mmol/L (101-111); EGFR African American 20.8 (>60); EGFR Non-African American 17.2 (>60); Globulin 2.4 g/dL (2-4); Glucose 272 mg/dL (70-100); Potassium 4.8 mmol/L (3.5-5.0); Sodium 128 mmol/L (135-145); Total Protein 5.7 g/dL (6.4-8.9)
[2019-01-10 21:26] LABS: Troponin I 0.41 ng/mL (<0.04)
[2019-01-10] MEDS ORDERED: NS 0.9% 50 ML* 50 ML ONE ×2 (21:29→21:30)
[2019-01-10] MEDS: Metoprolol Tartrate IV* 1 MG/ML 5 ML VIAL IV SCH (21:32)
[2019-01-10] MEDS ORDERED: Metoprolol Tartrate IV* 1 MG/ML 5 ML VIAL IV ONE (21:40)
[2019-01-10] MEDS ORDERED: Furosemide IV* 10 MG/ML VIAL (40 MG) IV ONE (21:40)
[2019-01-10] MEDS: Aztreonam (*) 1 GM in NS 0.9% 50 ML* 50 ML IVPB SCH (22:07)
[2019-01-10] MEDS ORDERED: Morphine INJ* 2 MG/ML 1 ML SYRINGE (TWO MG - NEW SYRINGE VERSION) IV PRN (23:17)
[2019-01-11] MEDS: metroNIDAZOLE IV 500 MG/100ML* 500 MG/100 ML BAG IVPB SCH ×3 (00:10→17:02)
--- NOTE | 2019-01-11 00:45 | PN ---
Progress Note - Progress Note Date of Service: 01/11/19 Note: Pt has had low sats on 15 L 02, Vapotherm started but ABG showed resp acidosis. BIPAP started and repeat ABG shows improvement in PH, 02 sat 91%. Family aware that pt may need to be intubated and are on their way
[2019-01-11] MEDS ORDERED: Succinylcholine* 20 MG/ML 10 ML VIAL ONE (01:32)
[2019-01-11] MEDS ORDERED: Etomidate* 2 MG/ML 20 ML VIAL (40 MG) ONE (01:33)
[2019-01-11] MEDS ORDERED: Propofol* 100 ML ONE (01:41)
[2019-01-11] MEDS ORDERED: NS 0.9% 1000 ML** 1,000 ML IV SCH (01:45)
[2019-01-11] MEDS: Propofol* 100 ML IV SCH (01:46)
[2019-01-11] MEDS ORDERED: Pantoprazole IV* 40 MG IV ONE (01:51)
[2019-01-11] MEDS ORDERED: Norepinephrine 16MCG/ML IVPRE* 4,000 MCG/250 ML BAG IV ONE (02:13)
[2019-01-11 02:42] LABS: Hematocrit 41 % (35-47); Hemoglobin 13.4 g/dL (12.0-16.0); Mean Corpuscular HGB Conc 33 g/dL (31-36); Mean Corpuscular Hemoglobin 29 pg (27-31); Mean Corpuscular Volume 90 fL (80-97); Mean Platelet Volume 7.6 fL (7.4-10.4); Platelet Count 360 10^3/uL (150-450); Red Blood Count 4.58 10^6 /uL (3.70-4.87); Red Cell Distribution Width 15 % (10.5-15); White Blood Count 15.6 10^3/uL (3.5-10.8)
[2019-01-11 02:43] LABS: ABS Lymphocytes 0.5 10^3/ul (1.0-4.8); ABS Monocytes 2.7 10^3/ul (0-0.8); ABS Neutrophils 12.4 10^3/ul (1.5-7.7); Lymphocyte % 3.1 %
[2019-01-11] MEDS: Dexmedetomidine* 1,000 MCG in NS 0.9% 250 ML* 240 ML IV SCH (02:58)
[2019-01-11] MEDS: Norepinephrine 16MCG/ML IVPRE* 4,000 MCG/250 ML BAG IV SCH ×4 (02:59→23:50)
[2019-01-11] MEDS ORDERED: Pantoprazole* 80 mg IN NS 80 MG/250 ML BAG IVPB SCH (03:00)
[2019-01-11] MEDS: Metoprolol Tartrate IV* 1 MG/ML 5 ML VIAL IV SCH ×2 (03:01→10:58)
[2019-01-11] MEDS ORDERED: NS 0.9% 50 ML* 50 ML ONE (05:52)
[2019-01-11 05:55] LABS: BUN/Creatinine Ratio 28.1 (8-20); EGFR African American 37.3 (>60); EGFR Non-African American 30.9 (>60); Magnesium 1.5 mg/dL (1.9-2.7); Potassium 2.8 mmol/L (3.5-5.0)
[2019-01-11 05:58] LABS: Calcium 5.3 mg/dL (8.6-10.3)
[2019-01-11] MEDS: Aztreonam (*) 1 GM in NS 0.9% 50 ML* 50 ML IVPB SCH ×3 (06:00→22:55)
[2019-01-11] MEDS ORDERED: Magnesium Sulfate 2 GM IV* 2 GM/50 ML BAG IVPB ONE (06:03)
[2019-01-11 06:27] LABS: Hematocrit 31 % (35-47); Hemoglobin 10.2 g/dL (12.0-16.0); Mean Corpuscular HGB Conc 33 g/dL (31-36); Mean Corpuscular Hemoglobin 30 pg (27-31); Mean Corpuscular Volume 90 fL (80-97); Mean Platelet Volume 7.8 fL (7.4-10.4); Platelet Count 252 10^3/uL (150-450); Red Blood Count 3.47 10^6 /uL (3.70-4.87); Red Cell Distribution Width 15 % (10.5-15); White Blood Count 9.7 10^3/uL (3.5-10.8)
[2019-01-11 06:39] LABS: ALT 32 U/L (7-52); Albumin 2.9 g/dL (3.2-5.2); Albumin/Globulin Ratio 1.3 (1-3); Alkaline Phosphatase 125 U/L (34-104); BUN/Creatinine Ratio 26.2 (8-20); Blood Urea Nitrogen 62 mg/dL (6-24); CO2 Carbon Dioxide 15 mmol/L (22-32); Calcium 7.8 mg/dL (8.6-10.3); Chloride 100 mmol/L (101-111); EGFR African American 23.7 (>60); EGFR Non-African American 19.6 (>60); Globulin 2.3 g/dL (2-4); Glucose 209 mg/dL (70-100); Magnesium 2.3 mg/dL (1.9-2.7); Sodium 130 mmol/L (135-145); Total Protein 5.2 g/dL (6.4-8.9)
[2019-01-11 06:43] LABS: Anion Gap 15 mmol/L (2-11)
[2019-01-11 06:44] LABS: Troponin I 0.55 ng/mL (<0.04)
[2019-01-11] MEDS ORDERED: NS 0.9% 1000 ML** 1,000 ML IV ONE (06:54)
[2019-01-11] MEDS ORDERED: Acetaminophen SUPP* 650 MG SUPP PR PRN (06:55)
[2019-01-11] MEDS ORDERED: Calcium Gluconate INJ* 2 GM in NS 0.9% 100 ML* 100 ML IV ONE (07:00)
[2019-01-11 07:07] LABS: ABS Neutrophils 7.2 10^3/ul (1.5-7.7)
[2019-01-11 07:30] LABS: Potassium Redraw 4.3 mmol/L (3.5-5.0)
[2019-01-11] MEDS ORDERED: VASOPRESSIN 20 UNITS/ML 1 ML VIAL ONE (07:51)
[2019-01-11] MEDS ORDERED: Acetaminophen ADULT LIQ* 650 MG/20.3 ML UDC PO PRN (08:00)
[2019-01-11] MEDS ORDERED: fentaNYL INFUSION 50 MCG/ML* 2,500 MCG/50 ML BAG IV SCH (08:00)
[2019-01-11] MEDS: Vasopressin* 100 UNITS in D5W 250 ML BAG IVPB SCH (08:15)
[2019-01-11] MEDS: NS 0.9% 1000 ML** 1,000 ML IV SCH ×2 (08:54→17:01)
[2019-01-11] MEDS ORDERED: Pantoprazole IV* 40 MG IV SCH (09:00)
[2019-01-11] MEDS: KCL 20 MEQ/100 ML IVPREMIX* 20 MEQ/100 ML BAG IV SCH ×2 (09:48→12:12)
--- NOTE | 2019-01-11 13:46 | PN ---
Date of Service: 01/11/19 Critical Care Services: intubated overnight for ARF. Failed bi-pap and other measures had been on vasopressors but now off or nearly off still with diarrhea but c.difficile negative e.coli in the urine renal functions improving still spiking fevers, wbc decreasing, and lactates trending down slight bump in troponins large amount from NGT after insertion. no evidence of bleeding though. guaic negative Vital Signs: Temp Pulse Resp BP SpO2 FiO2 101.1 F 85 29 118/60 100 50 01/11/19 09:00 01/11/19 09:00 01/11/19 09:00 01/11/19 09:00 01/11/19 09:00 01/11 13:33 Physical Exam: Gen:intubated. sedating. moving all extremities if off sedation Lungs: decreased BS's Cardiac: RRR Abdomen: Soft, ntp. no rebound or guarding Extremities: no SIMIN Neuro: moving all extremities. not following Fluid Balance (Past 24 Hours): I= O= Net Intake & Output 01/09/19 01/10/19 01/11/19 01/12/19 06:59 06:59 06:59 06:59 Intake Total 4572 168 Output Total 2385 655 Balance 2187 -487 Weight 156 lb 1.396 oz Intake: IV Fluids 3823 NS 1523 IVPB 460 168 ABX 460 Calcium Gluconate 118 Mag Sulfate 50 Medicated IV 289 CC - Dexmedetomidine/ 32 Precedex CC - Norepinephrine/ 175 Levophed GEN - Pantoprazole/ 82 Protonix Oral 0 Output: NG Tube Drainage Amount 1200 Urine 255 Osorio 930 655 Other: # Bowel Movements 1 Estimated Stool Amount Small A Labs: Laboratory Results - last 24 hr 01/10/19 01/10/19 01/10/19 12:39 12:40 14:59 WBC RBC Hgb Hct MCV MCH MCHC RDW Plt Count MPV Neut % (Auto) Lymph % (Auto) Bollinger % (Auto) Eos % (Auto) Baso % (Auto) Absolute Neuts (auto) Absolute Lymphs (auto) Absolute Monos (auto) Absolute Eos (auto) Absolute Basos (auto) Absolute Nucleated RBC Immature Gran % Neutrophils % Band Neutrophils % Lymphocytes % Reactive Lymphs % Monocytes % Eosinophils % Basophils % Metamyelocytes % Nucleated RBC % Abs Neuts (Manual) Abs Lymphs (Manual) Abs Monocytes (Manual) Absolute Eos (Manual) Abs Basophils (Manual) Normal RBC Morphology Anisocytosis Patient Temperature ABG pH ABG pH (Temp Correct) ABG pCO2 ABG pCO2 (Temp Corrct ABG pO2 ABG pO2 (Temp Correct ABG HCO3 ABG O2 Saturation ABG Base Excess Respiration Rate O2 Delivery Device Ventilator Type Vent Mode FiO2 Inspiratory Time PEEP Pressure Support Pressure Control EPAP IPAP BiPAP Sodium Potassium Chloride Carbon Dioxide Anion Gap BUN Creatinine Est GFR ( Amer) Est GFR (Non-Af Amer) BUN/Creatinine Ratio Glucose Hemoglobin A1c Lactic Acid 4.7 H* Calcium Magnesium Total Bilirubin AST ALT Alkaline Phosphatase Total Creatine Kinase 2766 H Troponin I B-Natriuretic Peptide 198 H Total Protein Albumin Globulin Albumin/Globulin Ratio Urine Osmolality U Sodium Concentration 01/10/19 01/10/19 01/10/19 14:59 14:59 14:59 WBC 15.0 H RBC 4.62 Hgb 13.6 Hct 41 MCV 89 MCH 29 MCHC 33 RDW 15 Plt Count 286 MPV 7.2 L Neut % (Auto) Not Reportable Lymph % (Auto) Not Reportable Bollinger % (Auto) Not Reportable Eos % (Auto) Not Reportable Baso % (Auto) Not Reportable Absolute Neuts (auto) Not Reportable Absolute Lymphs (auto) Not Reportable Absolute Monos (auto) Not Reportable Absolute Eos (auto) Not Reportable Absolute Basos (auto) Not Reportable Absolute Nucleated RBC Not Reportable Immature Gran % 20.0 H Neutrophils % 66.0 Band Neutrophils % 20.0 H Lymphocytes % 6.0 Reactive Lymphs % 1.0 Monocytes % 7.0 Eosinophils % Basophils % Metamyelocytes % Nucleated RBC % Not Reportable Abs Neuts (Manual) 12.8 H Abs Lymphs (Manual) 1.1 Abs Monocytes (Manual) 1.1 H Absolute Eos (Manual) Abs Basophils (Manual) Normal RBC Morphology Normal Anisocytosis Patient Temperature ABG pH ABG pH (Temp Correct) ABG pCO2 ABG pCO2 (Temp Corrct ABG pO2 ABG pO2 (Temp Correct ABG HCO3 ABG O2 Saturation ABG Base Excess Respiration Rate O2 Delivery Device Ventilator Type Vent Mode FiO2 Inspiratory Time PEEP Pressure Support Pressure Control EPAP IPAP BiPAP Sodium 125 L Potassium 5.7 H Chloride 94 L Carbon Dioxide 17 L Anion Gap 14 H BUN 48 H Creatinine 3.13 H Est GFR ( Amer) 17.2 Est GFR (Non-Af Amer) 14.2 BUN/Creatinine Ratio 15.3 Glucose 237 H Hemoglobin A1c 6.1 H Lactic Acid Calcium 8.0 L Magnesium 2.5 Total Bilirubin 0.60 AST 90 H ALT 28 Alkaline Phosphatase 148 H Total Creatine Kinase Troponin I B-Natriuretic Peptide Total Protein 5.4 L Albumin 3.1 L Globulin 2.3 Albumin/Globulin Ratio 1.3 Urine Osmolality U Sodium Concentration 01/10/19 01/10/19 01/10/19 19:15 19:15 20:52 WBC RBC Hgb Hct MCV MCH MCHC RDW Plt Count MPV Neut % (Auto) Lymph % (Auto) Bollinger % (Auto) Eos % (Auto) Baso % (Auto) Absolute Neuts (auto) Absolute Lymphs (auto) Absolute Monos (auto) Absolute Eos (auto) Absolute Basos (auto) Absolute Nucleated RBC Immature Gran % Neutrophils % Band Neutrophils % Lymphocytes % Reactive Lymphs % Monocytes % Eosinophils % Basophils % Metamyelocytes % Nucleated RBC % Abs Neuts (Manual) Abs Lymphs (Manual) Abs Monocytes (Manual) Absolute Eos (Manual) Abs Basophils (Manual) Normal RBC Morphology Anisocytosis Patient Temperature ABG pH ABG pH (Temp Correct) ABG pCO2 ABG pCO2 (Temp Corrct ABG pO2 ABG pO2 (Temp Correct ABG HCO3 ABG O2 Saturation ABG Base Excess Respiration Rate O2 Delivery Device Ventilator Type Vent Mode FiO2 Inspiratory Time PEEP Pressure Support Pressure Control EPAP IPAP BiPAP Sodium 128 L Potassium 4.8 Chloride 96 L Carbon Dioxide 17 L Anion Gap 15 H BUN 48 H Creatinine 2.66 H Est GFR ( Amer) 20.8 Est GFR (Non-Af Amer) 17.2 BUN/Creatinine Ratio 18.0 Glucose 272 H Hemoglobin A1c Lactic Acid Calcium 7.9 L Magnesium Total Bilirubin 0.50 AST 111 H ALT 35 Alkaline Phosphatase 154 H Total Creatine Kinase Troponin I 0.41 H* B-Natriuretic Peptide Total Protein 5.7 L Albumin 3.3 Globulin 2.4 Albumin/Globulin Ratio 1.4 Urine Osmolality 363 U Sodium Concentration 26 01/10/19 01/11/19 01/11/19 20:52 00:10 02:36 WBC 15.6 H RBC 4.58 Hgb 13.4 Hct 41 MCV 90 MCH 29 MCHC 33 RDW 15 Plt Count 360 MPV 7.6 Neut % (Auto) 79.4 Lymph % (Auto) 3.1 Bollinger % (Auto) 17.4 Eos % (Auto) 0.0 Baso % (Auto) 0.1 Absolute Neuts (auto) 12.4 H Absolute Lymphs (auto) 0.5 L Absolute Monos (auto) 2.7 H Absolute Eos (auto) 0.0 Absolute Basos (auto) 0.0 Absolute Nucleated RBC 0.0 Immature Gran % Neutrophils % Band Neutrophils % Lymphocytes % Reactive Lymphs % Monocytes % Eosinophils % Basophils % Metamyelocytes % Nucleated RBC % 0.0 Abs Neuts (Manual) Abs Lymphs (Manual) Abs Monocytes (Manual) Absolute Eos (Manual) Abs Basophils (Manual) Normal RBC Morphology Anisocytosis Patient Temperature Not Reportable ABG pH 7.34 L ABG pH (Temp Correct) Not Reportable ABG pCO2 30 L ABG pCO2 (Temp Corrct Not Reportable ABG pO2 72 L ABG pO2 (Temp Correct Not Reportable ABG HCO3 18.4 L ABG O2 Saturation 97.8 ABG Base Excess -8.3 L Respiration Rate Not Reportable O2 Delivery Device bipap Ventilator Type Not Reportable Vent Mode Not Reportable FiO2 100 Inspiratory Time Not Reportable PEEP Not Reportable Pressure Support Not Reportable Pressure Control Not Reportable EPAP 6 IPAP 12 BiPAP Not Reportable Sodium Potassium Chloride Carbon Dioxide Anion Gap BUN Creatinine Est GFR ( Amer) Est GFR (Non-Af Amer) BUN/Creatinine Ratio Glucose Hemoglobin A1c Lactic Acid 4.7 H* Calcium Magnesium Total Bilirubin AST ALT Alkaline Phosphatase Total Creatine Kinase Troponin I B-Natriuretic Peptide Total Protein Albumin Globulin Albumin/Globulin Ratio Urine Osmolality U Sodium Concentration 01/11/19 01/11/19 01/11/19 05:23 05:23 05:23 WBC RBC Hgb Hct MCV MCH MCHC RDW Plt Count MPV Neut % (Auto) Lymph % (Auto) Bollinger % (Auto) Eos % (Auto) Baso % (Auto) Absolute Neuts (auto) Absolute Lymphs (auto) Absolute Monos (auto) Absolute Eos (auto) Absolute Basos (auto) Absolute Nucleated RBC Immature Gran % Neutrophils % Band Neutrophils % Lymphocytes % Reactive Lymphs % Monocytes % Eosinophils % Basophils % Metamyelocytes % Nucleated RBC % Abs Neuts (Manual) Abs Lymphs (Manual) Abs Monocytes (Manual) Absolute Eos (Manual) Abs Basophils (Manual) Normal RBC Morphology Anisocytosis Patient Temperature ABG pH ABG pH (Temp Correct) ABG pCO2 ABG pCO2 (Temp Corrct ABG pO2 ABG pO2 (Temp Correct ABG HCO3 ABG O2 Saturation ABG Base Excess Respiration Rate O2 Delivery Device Ventilator Type Vent Mode FiO2 Inspiratory Time PEEP Pressure Support Pressure Control EPAP IPAP BiPAP Sodium 136 D Potassium 2.8 L D Chloride 113 H Carbon Dioxide 13 L* Anion Gap 10 BUN 45 H Creatinine 1.60 H Est GFR ( Amer) 37.3 Est GFR (Non-Af Amer) 30.9 BUN/Creatinine Ratio 28.1 H Glucose 165 H Hemoglobin A1c Lactic Acid 2.6 H* Calcium 5.3 L* Magnesium 1.5 L Total Bilirubin AST ALT Alkaline Phosphatase Total Creatine Kinase Troponin I B-Natriuretic Peptide 208 H Total Protein Albumin Globulin Albumin/Globulin Ratio Urine Osmolality U Sodium Concentration 01/11/19 01/11/19 01/11/19 05:23 06:13 06:13 WBC 9.7 RBC 3.47 L Hgb 10.2 L Hct 31 L MCV 90 MCH 30 MCHC 33 RDW 15 Plt Count 252 MPV 7.8 Neut % (Auto) Not Reportable Lymph % (Auto) Not Reportable Bollinger % (Auto) Not Reportable Eos % (Auto) Not Reportable Baso % (Auto) Not Reportable Absolute Neuts (auto) 7.2 Absolute Lymphs (auto) Not Reportable Absolute Monos (auto) Not Reportable Absolute Eos (auto) Not Reportable Absolute Basos (auto) Not Reportable Absolute Nucleated RBC Not Reportable Immature Gran % 7.0 Neutrophils % 73.0 Band Neutrophils % 6.0 Lymphocytes % 4.0 Reactive Lymphs % Monocytes % 16.0 Eosinophils % 0.0 Basophils % 0.0 Metamyelocytes % 1.0 Nucleated RBC % Not Reportable Abs Neuts (Manual) 7.8 H Abs Lymphs (Manual) 0.4 L Abs Monocytes (Manual) 1.6 H Absolute Eos (Manual) 0.0 Abs Basophils (Manual) 0.0 Normal RBC Morphology Normal Anisocytosis 1+ Patient Temperature Not Reportable ABG pH 7.30 L ABG pH (Temp Correct) Not Reportable ABG pCO2 31 L ABG pCO2 (Temp Corrct Not Reportable ABG pO2 256 H ABG pO2 (Temp Correct Not Reportable ABG HCO3 17.2 L ABG O2 Saturation 100.0 H ABG Base Excess -9.9 L Respiration Rate 14 O2 Delivery Device vent Ventilator Type 400 Vent Mode cmv FiO2 100 Inspiratory Time Not Reportable PEEP 5 Pressure Support Not Reportable Pressure Control Not Reportable EPAP Not Reportable IPAP Not Reportable BiPAP Not Reportable Sodium 130 L Potassium TNP Chloride 100 L Carbon Dioxide 15 L Anion Gap 15 H BUN 62 H Creatinine 2.37 H Est GFR ( Amer) 23.7 Est GFR (Non-Af Amer) 19.6 BUN/Creatinine Ratio 26.2 H Glucose 209 H Hemoglobin A1c Lactic Acid Calcium 7.8 L Magnesium 2.3 Total Bilirubin 0.50 AST TNP ALT 32 Alkaline Phosphatase 125 H Total Creatine Kinase Troponin I 0.55 H* B-Natriuretic Peptide Total Protein 5.2 L Albumin 2.9 L Globulin 2.3 Albumin/Globulin Ratio 1.3 Urine Osmolality U Sodium Concentration 01/11/19 07:10 WBC RBC Hgb Hct MCV MCH MCHC RDW Plt Count MPV Neut % (Auto) Lymph % (Auto) Bollinger % (Auto) Eos % (Auto) Baso % (Auto) Absolute Neuts (auto) Absolute Lymphs (auto) Absolute Monos (auto) Absolute Eos (auto) Absolute Basos (auto) Absolute Nucleated RBC Immature Gran % Neutrophils % Band Neutrophils % Lymphocytes % Reactive Lymphs % Monocytes % Eosinophils % Basophils % Metamyelocytes % Nucleated RBC % Abs Neuts (Manual) Abs Lymphs (Manual) Abs Monocytes (Manual) Absolute Eos (Manual) Abs Basophils (Manual) Normal RBC Morphology Anisocytosis Patient Temperature ABG pH ABG pH (Temp Correct) ABG pCO2 ABG pCO2 (Temp Corrct ABG pO2 ABG pO2 (Temp Correct ABG HCO3 ABG O2 Saturation ABG Base Excess Respiration Rate O2 Delivery Device Ventilator Type Vent Mode FiO2 Inspiratory Time PEEP Pressure Support Pressure Control EPAP IPAP BiPAP Sodium Potassium 4.3 Chloride Carbon Dioxide Anion Gap BUN Creatinine Est GFR ( Amer) Est GFR (Non-Af Amer) BUN/Creatinine Ratio Glucose Hemoglobin A1c Lactic Acid Calcium Magnesium Total Bilirubin AST 86 H ALT Alkaline Phosphatase Total Creatine Kinase Troponin I B-Natriuretic Peptide Total Protein Albumin Globulin Albumin/Globulin Ratio Urine Osmolality U Sodium Concentration Impression: E.coli Septic shock ARF on MV JULES with metabolic acidosis Hyponatremia that resolved with IVF's Chronic pain syndrome Poor ADl's at baseline Hyperglycemia without hx of DM Anemia Demand ischemia with mildly elevated trops Plan: continue low vent and TV settings. No secretions. wean to extubate in AM ? continue Aztreonam for E.coli sepsis continue to follow renal functions and UOP. replete lytes as needed insulin SC. (mildly elevated Hga1c and no hx of DM) continue to trend H/H. PPI BID. If H/H continues to decrease may need EGD. Hold NOAC's and NSAIDs check TTE d/w daughter over the phone DNR/DNI status as patient was DNR/DNI last admission. Family still considering options and looking for patient's paperwork stating she wanted to be DNR/DNI. Also advised family to contact PMD who may also have paperwork. Critical Care Time: 45
--- NOTE | 2019-01-11 14:08 | OP ---
Operative Report - Blank - Operative Report Date of Operation: 01/11/19 - TLC placement Note: Indication: Hemodynamic monitoring/Intravenous access Triple Lumen Catheter Placement Procedure Note A time-out was completed verifying correct patient, procedure, and site positioning. The patients right neck was prepped and draped in sterile fashion. 1% Lidocaine was used to anesthetize the surrounding skin area. Under ultrasound guidance, a triple lumen catheter was introduced into the internal jugular vein using the Seldinger technique. The catheter was threaded smoothly over the guide wire and appropriate blood return was obtained. Each lumen of the catheter was evacuated of air and flushed with sterile saline. The catheter was then sutured in place to the skin and a sterile dressing applied. Estimated Blood Loss was minimal. CXR ordered for correct placement. The patient tolerated the procedure well and there were no complications.
[2019-01-11 14:57] LABS: Hematocrit 31 % (35-47); Hemoglobin 10.3 g/dL (12.0-16.0); Mean Corpuscular HGB Conc 34 g/dL (31-36); Mean Corpuscular Hemoglobin 30 pg (27-31); Mean Corpuscular Volume 89 fL (80-97); Mean Platelet Volume 7.8 fL (7.4-10.4); Platelet Count 243 10^3/uL (150-450); Red Blood Count 3.45 10^6 /uL (3.70-4.87); Red Cell Distribution Width 15 % (10.5-15); White Blood Count 8.5 10^3/uL (3.5-10.8)
[2019-01-11 15:13] LABS: BUN/Creatinine Ratio 29.6 (8-20); Calcium 7.6 mg/dL (8.6-10.3); EGFR African American 31.4 (>60); EGFR Non-African American 25.9 (>60); Magnesium 2.8 mg/dL (1.9-2.7); Phosphorus 3.9 mg/dL (2.5-5.0)
[2019-01-11 15:14] LABS: Potassium 5.1 mmol/L (3.5-5.0)
[2019-01-11] MEDS ORDERED: NS 0.9% IV ONE (15:23)
[2019-01-11 15:50] LABS: ABS Monocytes 1.2 10^3/ul (0-0.8); ABS Neutrophils 6.3 10^3/ul (1.5-7.7)
[2019-01-11] MEDS ORDERED: NS 0.9% 500 ML* 500 ML IV ONE (21:14)
[2019-01-11] MEDS ORDERED: Lactated Ringers 1000 ML Bag* 1,000 ML IV SCH (23:04)
[2019-01-12] MEDS: Vasopressin* 100 UNITS in D5W 250 ML BAG IVPB SCH ×2 (00:10→08:30)
[2019-01-12] MEDS: metroNIDAZOLE IV 500 MG/100ML* 500 MG/100 ML BAG IVPB SCH ×3 (00:40→21:27)
[2019-01-12] MEDS ORDERED: NS 0.9% 250 ML* 250 ML ONE (01:03)
[2019-01-12] MEDS: Dexmedetomidine* 1,000 MCG in NS 0.9% 250 ML* 240 ML IV SCH (04:02)
[2019-01-12] MEDS: Norepinephrine 16MCG/ML IVPRE* 4,000 MCG/250 ML BAG IV SCH ×3 (04:02→21:28)
--- NOTE | 2019-01-12 04:07 | PN ---
Progress Note - Progress Note Date of Service: 01/12/19 Note: Patient persistently hypotensive with bursts of rapid afib. 2L of LR given with no significant improvement. Levophed maxed out and started on vasopressin which has improved her MAPs. Lopressor prn for better rate control. Repeat Lactate showed improvement.
[2019-01-12] MEDS: Aztreonam (*) 1 GM in NS 0.9% 50 ML* 50 ML IVPB SCH ×3 (05:21→22:41)
[2019-01-12 06:42] LABS: Hematocrit 28 % (35-47); Hemoglobin 9.3 g/dL (12.0-16.0); Mean Corpuscular HGB Conc 34 g/dL (31-36); Mean Corpuscular Hemoglobin 30 pg (27-31); Mean Corpuscular Volume 89 fL (80-97); Mean Platelet Volume 7.8 fL (7.4-10.4); Platelet Count 185 10^3/uL (150-450); Red Blood Count 3.12 10^6 /uL (3.70-4.87); Red Cell Distribution Width 15 % (10.5-15); White Blood Count 6.3 10^3/uL (3.5-10.8)
[2019-01-12 06:43] LABS: ABS Lymphocytes 0.5 10^3/ul (1.0-4.8); ABS Monocytes 0.7 10^3/ul (0-0.8)
[2019-01-12 06:56] LABS: Albumin 2.3 g/dL (3.2-5.2); Albumin/Globulin Ratio 1.2 (1-3); BUN/Creatinine Ratio 33.1 (8-20); Calcium 7.3 mg/dL (8.6-10.3); EGFR African American 46.2 (>60); EGFR Non-African American 38.2 (>60); Globulin 1.9 g/dL (2-4); Magnesium 2.3 mg/dL (1.9-2.7); Potassium 4.1 mmol/L (3.5-5.0); Total Bilirubin 0.3 mg/dL (0.2-1.0); Total Protein 4.2 g/dL (6.4-8.9)
[2019-01-12 07:27] LABS: Eosinophil % 0.1 %; Lymphocyte % 7.9 %
[2019-01-12] MEDS ORDERED: Perflutren Lipid Microsphere* 3 ML VIAL ONE (07:47)
--- NOTE | 2019-01-12 10:01 | ECHO ---
*[facility]* [place] [address] Fax #: [phone] Transthoracic Echocardiogram Patient: Chapincito, Height: 65 in / Leonor 165.1 cm : 1935 Weight: 155.7 lb / Study Date: 01/12/2019 70.8 kg Age: 83 BP: 114 / 60 Gender: F BMI/BSA: 26 kg/m^2 HR: 92 bpm / 1.78 m^2 *In Flight Crew Member: * Shobha Calderon [facility] *Referring Physician: * Scott Loza *Reading Physician: * Cornelio Gibbs MD Indications: Myocardial Infarction. History: Atrial fibrillation. Chronic obstructive pulmonary disease. Risk factors: Current tobacco use. Hypertension. Conclusions Summary: 1. Left ventricle: Systolic function is normal. The estimated ejection fraction is 55-60%. Wall motion is normal; there are no regional wall motion abnormalities. 2. Right ventricle: Systolic function is normal. 3. Left atrium: The atrium is severely dilated. 4. Mitral valve: There is trivial regurgitation. 5. Aortic valve: There is no evidence of stenosis. 6. Tricuspid valve: There is no significant regurgitation. 7. Compared to study of 07/15/18, there is no significant change. Study data: Transthoracic echocardiogram. Procedure: Transthoracic echocardiography was performed. Image quality was adequate. The study was technically limited due to Patient on ventilator and Smoking history. Intravenous Definity , 3 mlswas administered. Image enhancement administered by DESHAUN Cuellar. Complete 2D, spectral Doppler, and color flow Doppler. Location: ICU Patient status: Inpatient. Patient room number: 9. Rhythm: Normal sinus rhythm. Findings Left ventricle: The cavity size is trivially reduced. Wall thickness is mildly increased. Systolic function is normal. The estimated ejection fraction is 55-60%. Wall motion is normal; there are no regional wall motion abnormalities. Left ventricular diastolic function parameters are indeterminate. Right ventricle: The cavity size is normal. Wall thickness is mildly increased. Systolic function is normal. Left atrium: The atrium is severely dilated. Right atrium: The atrium is moderately dilated. Mitral valve: The annulus is mildly calcified. The leaflets are mildly thickened. There is no evidence of stenosis. There is trivial regurgitation. Aortic valve: The valve is trileaflet. The leaflets are mildly thickened. There is no evidence of stenosis. There is no significant regurgitation. Tricuspid valve: The leaflets are normal thickness. There is no evidence of stenosis. There is no significant regurgitation. Pulmonic valve: Not well visualized. There is no significant regurgitation. Aorta: Aortic arch: The aortic arch is appears normal. The aortic root is not dilated. Pericardium: There is no significant pericardial effusion. Pulmonary arteries: Not well visualized. Systemic veins: Inferior vena cava: The vessel is dilated. Measurements Left ventricle Value Ref Aortic valve Value Ref RHYS, LAX (L) 3.4 cm 3.8 - 5.2 Sarah diam, ED 2.0 cm ---- ESD, LAX 2.2 cm 2.2 - 3.5 Peak v, S 1.2 m/sec ---- FS, LAX 33 % 27 - 45 VTI, S 20.6 cm ---- PW, ED, LAX 0.9 cm 0.6 - 0.9 Mean grad, S 3.0 mm Hg ---- EF 63 % 54 - 74 Peak grad, S 6.0 mm Hg ---- E', lat sarah, TDI (L) 9.0 cm/sec >=10.0 Mitral valve Value Ref LVOT Value Ref Mean grad, D 2.0 mm Hg ---- Peak brittnee, S 0.69 m/sec Peak grad, D 4.0 mm Hg ---- Mean grad, S 1 mm Hg Pulmonic valve Value Ref Ventricular septum Value Ref Peak v, S 0.65 m/sec ---- IVS, ED (H) 1.3 cm 0.6 - 0.9 Peak grad, S 2.0 mm Hg ---- Right ventricle Value Ref Aortic root Value Ref RHYS, LAX 2.6 cm Root diam 3.2 cm <4.0 RHYS minor ax, A4C 2.5 cm 1.9 - 3.5 Root max diam, ED 3.2 cm <4.0 mid Ascending aorta Value Ref Left atrium Value Ref AAo AP diam, S 3.2 cm ---- AP dim, ES 3.00 cm 2.70 - 3.80 Aortic arch Value Ref ML dim, A4C 4.8 cm Arch diam 2.9 cm ---- SI dim, A4C 6.4 cm Vol/bsa, ES, A/L (H) 52 ml/m^2 16 - 34 Inferior vena cava Value Ref Diam 2.3 cm ---- Right atrium Value Ref SI dim, ES (H) 6.0 cm 3.4 - 5.3 ML dim, ES, A4C (H) 4.7 cm 2.6 - 4.4 Estimated RAP 3 mm Hg Legend: (L) and (H) orlin values outside specified reference range. Prepared and electronically signed by Cornelio Gibbs MD 01/12/2019 10:01
[2019-01-12] MEDS: Lansoprazole SUSP* ORALSYR 3 MG/ML FEED TUBE SCH (10:31)
[2019-01-12] MEDS: fentaNYL INFUSION 50 MCG/ML* 2,500 MCG/50 ML BAG IV SCH ×2 (11:22→18:16)
--- NOTE | 2019-01-12 12:47 | PN ---
Date of Service: 01/12/19 Critical Care Services: went in and out of JO overnight-hx of JO- and then had bouts of hypotension. now in NSR. Remains on low dose Levophed complaining of diffuse tenderness in abdominal area. AF. WBC decreasing. Renal functions improving US GB showed dilated CBD. LFT's normalized. Bili not elevated. staph epi 1/2 in blood TTE normal Vital Signs: Temp Pulse Resp BP SpO2 FiO2 97.7 F 90 21 95/41 95 35 01/12/19 11:00 01/12/19 11:00 01/12/19 11:00 01/12/19 11:00 01/12/19 11:00 01/12 08:21 Physical Exam: Gen Intubated. Sedated. following when off sedation. Heart- NSR Lungs- Decreased Breath sounds, not using accessory muscles Abdomen- +BSs. Some tenderness to palpation, No rebound or guarding. Extremities- No SIMIN Neuro- Moving all extremities Fluid Balance (Past 24 Hours): I= O= Net Intake & Output 01/10/19 01/11/19 01/12/19 01/13/19 06:59 06:59 06:59 06:59 Intake Total 4572 6914 745.2 Output Total 2385 2143 520 Balance 2187 4771 225.2 Weight 156 lb 1.396 oz 165 lb 9.074 oz Intake: IV Fluids 3823 5086 518 KVO 159 NS 1523 4927 518 IVPB 460 516 106 ABX 460 50 ABX - FLAGYL 106 Calcium Gluconate 118 KVO 248 Mag Sulfate 50 NS 50 Medicated IV 289 1274 121.2 CC - Dexmedetomidine/ 32 225 55.6 Precedex CC - Norepinephrine/ 175 838 50 Levophed CC - Vasopressin/ 80 15.6 Pitressin GEN - Pantoprazole/ 82 131 Protonix Oral 0 38 Output: NG Tube Drainage Amount 1200 Urine 255 230 Osorio 930 1813 520 Liquid Stool 100 Other: Date of Last Bowel 01/11/19 Movement # Bowel Movements 1 Estimated Stool Amount Small Labs: Laboratory Results - last 24 hr 01/11/19 01/11/19 01/11/19 14:30 14:30 14:30 WBC 8.5 RBC 3.45 L Hgb 10.3 L Hct 31 L MCV 89 MCH 30 MCHC 34 RDW 15 Plt Count 243 MPV 7.8 Neut % (Auto) Not Reportable Lymph % (Auto) Not Reportable Nicollet % (Auto) Not Reportable Eos % (Auto) Not Reportable Baso % (Auto) Not Reportable Absolute Neuts (auto) 6.3 Absolute Lymphs (auto) 1.0 Absolute Monos (auto) 1.2 H Absolute Eos (auto) 0.0 Absolute Basos (auto) 0.0 Absolute Nucleated RBC Not Reportable Immature Gran % 19.0 H Neutrophils % 50.0 Band Neutrophils % 17.0 H Lymphocytes % 16.0 Monocytes % 15.0 Metamyelocytes % 2.0 Nucleated RBC % Not Reportable Abs Neuts (Manual) 5.9 Abs Lymphs (Manual) 1.4 Abs Monocytes (Manual) 1.3 H Normal RBC Morphology Not Reportable Anisocytosis 1+ Sodium 131 L Potassium 5.1 H D Chloride 106 Carbon Dioxide 15 L Anion Gap 10 BUN 55 H Creatinine 1.86 H Est GFR ( Amer) 31.4 Est GFR (Non-Af Amer) 25.9 BUN/Creatinine Ratio 29.6 H Glucose 269 H Lactic Acid 4.4 H* Calcium 7.6 L Phosphorus 3.9 Magnesium 2.8 H Total Bilirubin AST ALT Alkaline Phosphatase Total Protein Albumin Globulin Albumin/Globulin Ratio 01/12/19 01/12/19 01/12/19 00:10 05:45 05:45 WBC 6.3 RBC 3.12 L Hgb 9.3 L Hct 28 L MCV 89 MCH 30 MCHC 34 RDW 15 Plt Count 185 MPV 7.8 Neut % (Auto) 80.1 Lymph % (Auto) 7.9 Nicollet % (Auto) 11.8 Eos % (Auto) 0.1 Baso % (Auto) 0.1 Absolute Neuts (auto) 5.0 Absolute Lymphs (auto) 0.5 L Absolute Monos (auto) 0.7 Absolute Eos (auto) 0.0 Absolute Basos (auto) 0.0 Absolute Nucleated RBC 0.0 Immature Gran % Neutrophils % Band Neutrophils % Lymphocytes % Monocytes % Metamyelocytes % Nucleated RBC % 0.0 Abs Neuts (Manual) Abs Lymphs (Manual) Abs Monocytes (Manual) Normal RBC Morphology Anisocytosis Sodium 138 Potassium 4.1 Chloride 113 H Carbon Dioxide 16 L Anion Gap 9 BUN 44 H Creatinine 1.33 H Est GFR ( Amer) 46.2 Est GFR (Non-Af Amer) 38.2 BUN/Creatinine Ratio 33.1 H Glucose 181 H Lactic Acid 2.8 H* Calcium 7.3 L Phosphorus Magnesium 2.3 Total Bilirubin 0.30 AST 50 H ALT 22 Alkaline Phosphatase 102 Total Protein 4.2 L Albumin 2.3 L Globulin 1.9 L Albumin/Globulin Ratio 1.2 Impression: Septic shock with E.Coli in urine ARF on MV Paroxysmal JO on home NOAC Anemia JULES - resolved Dilated CBD on US with normal LFT's and Bili Demand ischemia with normal TTE Hyponatremia - resolved Poor ADL's at baseline Pain syndrome and on narcotics at home Hyperglycemia Plan: CT abd/pelvis with contrast GI consult for abdominal pain continue ABX for E.Coli change to Neosynephrine if develops JO Minimize further IVF's 2/2 chest congestion Monitor H/H continue low TV settings and low PEEP Critical Care Time: 60 minutes
[2019-01-12] MEDS: Nystatin TOP POWDER* 15 GM BTL TOPICAL SCH ×3 (13:34→21:27)
[2019-01-12 14:14] LABS: ABS Lymphocytes 0.6 10^3/ul (1.0-4.8); ABS Monocytes 1.9 10^3/ul (0-0.8)
[2019-01-12 14:15] LABS: Lymphocyte % 6.3 %
[2019-01-12] MEDS ORDERED: Iodixanol* (CONTRAST) 320 MG/ML 100 ML SDV IV ONE (15:05)
--- NOTE | 2019-01-12 17:10 | CONS ---
CONSULTATION REPORT: DATE OF CONSULTATION: 01/12/19 REQUESTING PHYSICIAN: Dr. Loza. LOCATION: Room ICU bed 9. INDICATION: Mrs. Beckham is an 83-year-old female who is currently intubated and sedated. She was admitted to the hospital on 01/10/19 with mental status changes. I did review the chart and the nurse. Per those sources , the patient had not been feeling well over the past couple of days. She really was not eating much and then developed abdominal pain somewhere around the day of admission. They brought her to the emergency room and she was admitted for mental status changes, renal insufficiency, and abdominal pain. She eventually was found to have E. coli in her urine. She did develop sepsis and required intubation. At this point, they weaned down her sedation. She is still wincing with abdominal pain. She did have a right upper quadrant ultrasound, which showed a very dilated common bile duct; however, per report, the patient is status post cholecystectomy. Additionally, when she came up from the emergency room to the ICU, she did have an OG tube in place. By report , they were coffee ground, and that they did Hemoccult of the gastric contents and it was negative. GI is now being consulted for the possible biliary dilatation and possible upper GI bleed. The patient is currently on her way to Radiology for CAT scan. She had a noncontrasted CAT scan earlier on. PAST MEDICAL HISTORY: Significant for COPD, atrial fibrillation, schizophrenia , right hip pain, the patient is bedbound. MEDICATIONS: Include: 1. Hydroxyzine. 2. Metoprolol. 3. Risperidone. 4. Xarelto. 5. Lisinopril. 6. Gabapentin. 7. Fluoxetine. 8. Hydrochlorothiazide. 9. Hydrocodone. ALLERGIES: PENICILLIN. FAMILY HISTORY: Unobtainable from the patient at this point. SOCIAL HISTORY: She used to smoke tobacco. Lives with her son and daughter-in - law. REVIEW OF SYSTEMS: Systems were unable to be reviewed with the patient due to her intubated status. PHYSICAL EXAMINATION: Temperature is 98.2, blood pressure is 108/44, pulse is 91, respiratory rate of 31. General: Chronically ill-appearing female, in no apparent distress, intubated and sedated. HEENT: Mucous membranes are dry. Lungs: Coarse breath sounds bilaterally. Heart: Irregular rate and rhythm. Abdomen: Positive bowel sounds, obese, diffusely tender throughout. No rebound. No guarding. Skin: Warm and dry. LABORATORY DATA/DIAGNOSTIC STUDIES: Labs of note, her white count is 6.3, hemoglobin has gone from 14.7 down to 9.3, platelet count 185. INR was 1. Bilirubin was 0.5, now it is 0.3, AST went from 86 to 50, ALT 32 down to 22, alk phos 125 to 102. She did have a positive troponin yesterday. She does have radiology data including a noncontrasted CT from admission. However, the radiologist does state the common bile duct may be dilated to 1.6 cm. There may be thickening involving the colon, but again it was nonoral and non-IV. She again does have another 1 pending at this point. She also has a gallbladder ultrasound from yesterday, which revealed a 1.6 cm common bile duct similar in appearance to the CT. ASSESSMENT AND PLAN: This is an 83-year-old female, who is intubated and sedated, who appears to be improving from a sepsis standpoint. No etiology has been found. She does have E. coli in the urine, not in the blood. She does have a common bile duct that is dilated to 1.6 cm. If she truly is status post cholecystectomy in her age, this does seem a little enlarged. The patient is getting a CT right now. We will await the findings of this. She may need either an MRCP or an HIDA scan. It would be unusual in the setting of normal LFTs to have biliary obstruction. There is also the additional concern about her decreasing hemoglobin, whether or not there was blood in her gastric contents or not. At this point, since she is on her way for her the CAT scan, we will await the results of that to make further determinations regarding her common bile duct and her anemia status after that. [id number]/[facility] #: [id number] [facility]
--- NOTE | 2019-01-12 17:45 | OP ---
Operative Report - Blank - Operative Report Date of Operation: 01/12/19 Note: Triple lumen Placement Left IJ placed emergently after getting consent over phone from son. Right IJ fell out of place during CT scan earlier. Patient on Vasopressors and sedation and requires a TLC. A time-out was completed verifying correct patient, procedure, site. The patient was placed in a dependent position appropriate for central line placement based on the vein to be cannulated. The patients left neck was prepped and draped in sterile fashion. 1% Lidocaine was used to anesthetize the surrounding skin area. A triple lumen catheter was introduced into the left internal jugular using the Seldinger technique and under ultrasound guidance.. The catheter was threaded smoothly over the guide wire and appropriate blood return was obtained. Each lumen of the catheter was evacuated of air and flushed with sterile saline. The catheter was then sutured in place to the skin and a sterile dressing applied. Estimated Blood Loss: none The patient tolerated the procedure well and there were no complications. F/U CXR was ordered.
[2019-01-12] MEDS: Chlorhexidine MOUTHWASH 0.12%* 15 ML UDC TOPICAL SCH ×3 (18:13→21:27)
[2019-01-12] MEDS: Propofol* 100 ML IV SCH (18:15)
[2019-01-12] MEDS: Metoprolol Tartrate IV* 1 MG/ML 5 ML VIAL IV PRN (18:17)
[2019-01-13] MEDS: Chlorhexidine MOUTHWASH 0.12%* 15 ML UDC TOPICAL SCH ×7 (04:20→23:27)
[2019-01-13] MEDS: Dexmedetomidine* 1,000 MCG in NS 0.9% 250 ML* 240 ML IV SCH (04:21)
[2019-01-13] MEDS: Metoprolol Tartrate IV* 1 MG/ML 5 ML VIAL IV PRN ×2 (04:22→16:38)
[2019-01-13] MEDS: metroNIDAZOLE IV 500 MG/100ML* 500 MG/100 ML BAG IVPB SCH ×4 (05:31→20:30)
[2019-01-13] MEDS: Aztreonam (*) 1 GM in NS 0.9% 50 ML* 50 ML IVPB SCH ×3 (06:43→21:32)
[2019-01-13 06:49] LABS: Hematocrit 28 % (35-47); Hemoglobin 9.5 g/dL (12.0-16.0); Mean Corpuscular HGB Conc 34 g/dL (31-36); Mean Corpuscular Hemoglobin 30 pg (27-31); Mean Corpuscular Volume 88 fL (80-97); Mean Platelet Volume 7.6 fL (7.4-10.4); Platelet Count 222 10^3/uL (150-450); Red Blood Count 3.16 10^6 /uL (3.70-4.87); Red Cell Distribution Width 15 % (10.5-15); White Blood Count 10.3 10^3/uL (3.5-10.8)
[2019-01-13 07:02] LABS: Albumin 2.5 g/dL (3.2-5.2); Albumin/Globulin Ratio 1.1 (1-3); BUN/Creatinine Ratio 27.9 (8-20); EGFR African American 56.9 (>60); EGFR Non-African American 47.1 (>60); Globulin 2.2 g/dL (2-4); Magnesium 2.2 mg/dL (1.9-2.7); Potassium 3.5 mmol/L (3.5-5.0); Total Bilirubin 0.4 mg/dL (0.2-1.0); Total Protein 4.7 g/dL (6.4-8.9)
[2019-01-13] MEDS: Vasopressin* 100 UNITS in D5W 250 ML BAG IVPB SCH ×2 (08:17→19:57)
[2019-01-13 08:24] LABS: ABS Eosinophils 0.1 10^3/ul (0-0.6); ABS Lymphocytes 1.1 10^3/ul (1.0-4.8); ABS Monocytes 0.7 10^3/ul (0-0.8); ABS Neutrophils 8.4 10^3/ul (1.5-7.7); Eosinophil % 0.7 %; Lymphocyte % 10.9 %
[2019-01-13] MEDS: Norepinephrine 16MCG/ML IVPRE* 4,000 MCG/250 ML BAG IV SCH ×2 (08:42→18:23)
[2019-01-13] MEDS: Nystatin TOP POWDER* 15 GM BTL TOPICAL SCH ×3 (08:42→20:29)
[2019-01-13] MEDS: Lactated Ringers 1000 ML Bag* 1,000 ML IV SCH (09:52)
[2019-01-13] MEDS: Lansoprazole SUSP* ORALSYR 3 MG/ML FEED TUBE SCH ×2 (10:36→13:35)
[2019-01-13] MEDS ORDERED: Phenylephrine 10 MG/ML VIAL* 50 MG in NS 0.9% 250 ML* 245 ML IV SCH (11:00)
--- NOTE | 2019-01-13 11:12 | PN ---
Date of Service: 01/13/19 Critical Care Services: 24 hour events remains AF. WBC decreasing. No secretions. CXR shows worse opacities now b/l ct with contrast shows severely dilated CBD and evidence of colitis with thickened bowel remains on Levoophed (appox 10) and with bouts of JO that responded to BB. Switching to Neosynephrine. Vital Signs: Temp Pulse Resp BP SpO2 FiO2 99.3 F 132 20 119/47 91 45 01/13/19 10:00 01/13/19 10:00 01/13/19 08:00 01/13/19 09:45 01/13/19 10:00 01/13 09:36 Physical Exam: :Gen Intubated. Sedated Heart- irregular, irregular and tachy Lungs- Decreased Breath sounds, not using accessory muscles Abdomen- +BSs. tender to palpation all quads. No rebound or guarding. Extremities- No SIMIN Neuro- Moving all extremities Fluid Balance (Past 24 Hours): I= O= Net Intake & Output 01/11/19 01/12/19 01/13/19 01/14/19 06:59 06:59 06:59 06:59 Intake Total 4572 6914 2755.2 0 Output Total 2385 2143 1885 755 Balance 2187 4771 870.2 -755 Weight 156 lb 1.396 oz 165 lb 9.074 oz 167 lb 8.821 oz Intake: IV Fluids 3823 5086 544 KVO 159 26 NS 1523 4927 518 IVPB 460 516 366 ABX 460 50 ABX - FLAGYL 306 Calcium Gluconate 118 KVO 248 60 Mag Sulfate 50 NS 50 Medicated IV 289 1274 845.2 CC - Dexmedetomidine/ 32 225 55.6 Precedex CC - Norepinephrine/ 175 838 613 Levophed CC - Propofol/Diprivan 161 CC - Vasopressin/ 80 15.6 Pitressin GEN - Pantoprazole/ 82 131 Protonix Oral 0 38 1000 0 Output: NG Tube Drainage Amount 1200 Urine 255 230 Osorio 930 1813 1785 155 Liquid Stool 100 100 600 Other: Date of Last Bowel 01/11/19 Movement # Bowel Movements 1 Estimated Stool Amount Small Labs: Laboratory Results - last 24 hr 01/11/19 01/12/19 01/13/19 05:23 13:47 06:15 WBC 10.3 RBC 3.16 L Hgb 9.5 L Hct 28 L MCV 88 MCH 30 MCHC 34 RDW 15 Plt Count 222 MPV 7.6 Neut % (Auto) 74.1 81.3 Lymph % (Auto) 6.3 10.9 Louisa % (Auto) 19.5 7.0 Eos % (Auto) 0.0 0.7 Baso % (Auto) 0.1 0.1 Absolute Neuts (auto) 8.4 H Absolute Lymphs (auto) 0.6 L 1.1 Absolute Monos (auto) 1.9 H 0.7 Absolute Eos (auto) 0.0 0.1 Absolute Basos (auto) 0.0 0.0 Absolute Nucleated RBC 0.0 0.0 Nucleated RBC % 0.0 0.0 Abs Neuts (Manual) Armature Rewinder Abs Lymphs (Manual) Armature Rewinder Abs Monocytes (Manual) Armature Rewinder Absolute Eos (Manual) Armature Rewinder Abs Basophils (Manual) Armature Rewinder Hem Pathologist Commnt Patient Temperature Not Reportable ABG pH 7.36 ABG pH (Temp Correct) Not Reportable ABG pCO2 30 L ABG pCO2 (Temp Corrct Not Reportable ABG pO2 73 L ABG pO2 (Temp Correct Not Reportable ABG HCO3 19.2 ABG O2 Saturation 97.4 ABG Base Excess -7.3 L Respiration Rate Not Reportable O2 Delivery Device Ventilator Ventilator Type Not Reportable Vent Mode Spont 10/5 FiO2 35 Inspiratory Time Not Reportable PEEP Not Reportable Pressure Support Not Reportable Pressure Control Not Reportable EPAP Not Reportable IPAP Not Reportable BiPAP Not Reportable Sodium Potassium Chloride Carbon Dioxide Anion Gap BUN Creatinine Est GFR ( Amer) Est GFR (Non-Af Amer) BUN/Creatinine Ratio Glucose Hemoglobin A1c Calcium Magnesium Total Bilirubin AST ALT Alkaline Phosphatase Total Protein Albumin Globulin Albumin/Globulin Ratio 01/13/19 01/13/19 01/13/19 06:15 06:15 09:36 WBC RBC Hgb Hct MCV MCH MCHC RDW Plt Count MPV Neut % (Auto) Lymph % (Auto) Louisa % (Auto) Eos % (Auto) Baso % (Auto) Absolute Neuts (auto) Absolute Lymphs (auto) Absolute Monos (auto) Absolute Eos (auto) Absolute Basos (auto) Absolute Nucleated RBC Nucleated RBC % Abs Neuts (Manual) Abs Lymphs (Manual) Abs Monocytes (Manual) Absolute Eos (Manual) Abs Basophils (Manual) Hem Pathologist Commnt Patient Temperature Not Reportable ABG pH 7.22 L ABG pH (Temp Correct) Not Reportable ABG pCO2 47 H ABG pCO2 (Temp Corrct Not Reportable ABG pO2 59 L* ABG pO2 (Temp Correct Not Reportable ABG HCO3 18.0 L ABG O2 Saturation 90.5 L ABG Base Excess -8.5 L Respiration Rate Not Reportable O2 Delivery Device vent Ventilator Type Not Reportable Vent Mode spont FiO2 45 Inspiratory Time Not Reportable PEEP 5 Pressure Support 10 Pressure Control Not Reportable EPAP Not Reportable IPAP Not Reportable BiPAP Not Reportable Sodium 140 Potassium 3.5 Chloride 115 H Carbon Dioxide 19 L Anion Gap 6 BUN 31 H Creatinine 1.11 H Est GFR ( Amer) 56.9 Est GFR (Non-Af Amer) 47.1 BUN/Creatinine Ratio 27.9 H Glucose 125 H Hemoglobin A1c 6.3 H Calcium 8.0 L Magnesium 2.2 Total Bilirubin 0.40 AST 49 H ALT 25 Alkaline Phosphatase 111 H Total Protein 4.7 L Albumin 2.5 L Globulin 2.2 Albumin/Globulin Ratio 1.1 Impression: Septic shock with E.Coli in urine ARF on MV D#3 Multi-lobar PNA Paroxysmal JO on home NOAC (restarted 01/13/19) Anemia JULES - resolved Dilated CBD with normal LFT's colitis Demand ischemia with normal TTE Hyponatremia - resolved Poor ADL's at baseline Pain syndrome and on home narcotics at home Hyperglycemia Plan: Plan: MRCP for biliary dilation continue ABX for E.Coli Continue flagyl for colitis. (C.Difficile negative though) change to Neosynephrine 2/2 JO--after several hours patient remained in JO so loaded with digoxin 0.25 mg q6 times 4 doses patient not ready to be weaned keep sedated with Propofol and Fentanyl restart NOAC as no evidence of bleeding Start TF's (Jevity) Discussed case with ID and Radiology. Also spoke to patent's daughter in-law at the bedside, son over the phone, and informed them of the severity of the patient's condition. patient remains full code. DNR/DNI status was also discussed. Critical Care Time: 60
[2019-01-13] MEDS: Propofol* 100 ML IV SCH ×2 (11:30→20:42)
[2019-01-13] MEDS: Rivaroxaban TAB(*) 15 MG PO SCH (11:30)
[2019-01-13] MEDS: KCL 20 MEQ/100 ML IVPREMIX* 20 MEQ/100 ML BAG IV SCH ×2 (12:50→16:28)
[2019-01-13] MEDS: fentaNYL INFUSION 50 MCG/ML* 2,500 MCG/50 ML BAG IV SCH (12:54)
[2019-01-13] MEDS: Digoxin IV* 0.5 MG/2 ML AMP (0.25 MG/ML) IV SLOW PU SCH ×2 (13:37→19:44)
[2019-01-13] MEDS ORDERED: Digoxin IV* 0.5 MG/2 ML AMP (0.25 MG/ML) IV SLOW PU ONE (15:24)
[2019-01-13] MEDS ORDERED: NS 0.9% 1000 ML** 1,000 ML IV ONE (15:27)
[2019-01-13] MEDS ORDERED: Vancomycin per Pharmacy* NOTE FOLLOW UP SCH (16:00)
[2019-01-13] MEDS ORDERED: Vancomycin(*) 1,500 MG in NS 0.9% 250 ML* 250 ML IVPB ONE (16:00)
[2019-01-13] MEDS: PHENYLEPHRINE IV SCH ×2 (16:28→23:27)
[2019-01-13] MEDS: NS 0.9% IV SCH ×2 (16:28→23:27)
--- NOTE | 2019-01-13 17:54 | CONS ---
CONSULTATION REPORT: DATE OF CONSULT: 01/13/19 REQUESTING PHYSICIAN: Dr. Loza. CONSULTING SERVICE: Infectious Disease. REASON FOR CONSULT: Pneumonia. IMPRESSION: 1. Admitted with encephalopathy on 01/10/19 and suspected infection. A urinalysis at that time showed blood and leukocyte esterase. Urine culture growing E. coli. She has been on aztreonam; however, there is also concern for bilateral upper lobe infiltrate on aztreonam and Flagyl, so she may have a gram- positive organism if this is a bacterial pneumonia. There is also a concern for colitis based on CT findings. She has been on 2 pressors and down to 1 pressor, her lactic acid down to 2.8 from 6. 2. Chronic obstructive pulmonary disease. 3. Atrial fibrillation. 4. Schizophrenia. RECOMMENDATION: We will continue aztreonam and Flagyl and add vancomycin goal trough 15 to 20 and follow her respiratory status here. HISTORY OF PRESENT ILLNESS: This is an 83-year-old woman admitted on 01/10/19 with change in mental status, brought in by her son. CT chest, abdomen, and pelvis at that time showed dilated biliary tree. She had ultrasound of gallbladder, did not show any stones. She has had her gallbladder out. Chest x -ray today shows bilateral upper lobe infiltrates. She has been on 2 pressors and now is down to 1 pressor today. She cannot provide any history of her admission as she is now intubated and sedated. Those details were obtained instead from discussion with Dr. Loza and review of the medical record. Her initial CT showed some fluid in the colon with concern for infectious or autoimmune colitis. Her folic acid in the initial exam was apparently out of position, it has been repositioned. She had a followup CT on 01/12/19, shows increased thickening of the colon and distal terminal ileum. She is having liquid stools here per the nurse, but minimal ET tube secretions. PAST MEDICAL HISTORY: 1. COPD. 2. Schizophrenia. 3. Atrial fibrillation. 4. Chronic pain. 5. Hypertension. 6. Decreased functional status. MEDICATIONS: 1. Tylenol. 2. Aztreonam 1 g IV every 8 hours. 3. Fentanyl infusion. 4. Lansoprazole. 5. Norepinephrine infusion. 6. Metoprolol. 7. Metronidazole 500 mg every 8 hours. 8. Phenylephrine infusion. 9. Propofol infusion. ALLERGIES: PENICILLIN, unknown reaction. FAMILY HISTORY: No recurrent infections. SOCIAL HISTORY: She lives with her son. She is a past smoker. REVIEW OF SYSTEMS: Unobtainable given her mental status and intubated. PHYSICAL EXAM: Vital Signs: Temperature 37.7, heart rate 150, respiratory rate 14, blood pressure 100/63, oxygen saturation 92%. O2 flow rate of 40 L per minute, FiO2 of 16. In general, she does not appear diaphoretic or under stress. HEENT: There is no conjunctival hemorrhage. There is slight right conjunctival injection, none on the left. Oropharynx without lesions. Neck is supple without mass. Heart is regular and tachycardic without murmurs. Lungs have coarse rhonchorous breath sounds bilaterally. Abdomen: Soft, mildly distended. There are bowel sounds present. There is no rebound or tenderness to palpation. Skin: There is no rash or splinter hemorrhages. Musculoskeletal : There is no spine tenderness to palpation or joint synovitis. DIAGNOSTIC STUDIES/LAB DATA: Creatinine 1.1, down from 3.7. ALT 25, alkaline phosphatase 111, bilirubin 0.4, CRP was 152 on admission. White blood cell count 10, down from 15; hemoglobin 9.5; platelets 222,000. Please see impression and recommendations outlined above, which I have discussed with Dr. Loza. Thanks for asking me to see Sabina Chapincito in consultation. [id number]/[facility] #: [id number] [facility] CENTERBirgit
[2019-01-14] MEDS: Lactated Ringers 1000 ML Bag* 1,000 ML IV SCH (00:37)
--- NOTE | 2019-01-14 00:42 | PN ---
Progress Note - Progress Note Date of Service: 01/14/19 Note: RT had Dr. Encinas come and assess ETT placement. Concern for cuff leak or placement. O2 sat remained in 90's. CXR: Proper ETT placement. Appeared to be tube feeds in oropharnyx - will hold tube feedings overnight
[2019-01-14] MEDS: Propofol* 100 ML IV SCH ×2 (01:25→06:28)
[2019-01-14] MEDS: Digoxin IV* 0.5 MG/2 ML AMP (0.25 MG/ML) IV SLOW PU SCH (01:31)
[2019-01-14] MEDS: Chlorhexidine MOUTHWASH 0.12%* 15 ML UDC TOPICAL SCH (05:20)
[2019-01-14] MEDS: metroNIDAZOLE IV 500 MG/100ML* 500 MG/100 ML BAG IVPB SCH (05:20)
[2019-01-14 06:15] LABS: Albumin 2.1 g/dL (3.2-5.2); Albumin/Globulin Ratio 1.2 (1-3); BUN/Creatinine Ratio 17.4 (8-20); Calcium 8.1 mg/dL (8.6-10.3); EGFR African American 27.7 (>60); EGFR Non-African American 22.9 (>60); Globulin 1.8 g/dL (2-4); Magnesium 2.4 mg/dL (1.9-2.7); Total Bilirubin 0.3 mg/dL (0.2-1.0); Total Protein 3.9 g/dL (6.4-8.9)
[2019-01-14 06:17] LABS: Hematocrit 26 % (35-47); Hemoglobin 8.7 g/dL (12.0-16.0); Mean Corpuscular HGB Conc 34 g/dL (31-36); Mean Corpuscular Hemoglobin 30 pg (27-31); Mean Corpuscular Volume 90 fL (80-97); Mean Platelet Volume 7.8 fL (7.4-10.4); Platelet Count 190 10^3/uL (150-450); Red Blood Count 2.86 10^6 /uL (3.70-4.87); Red Cell Distribution Width 16 % (10.5-15); White Blood Count 10.9 10^3/uL (3.5-10.8)
[2019-01-14 06:18] LABS: Potassium 5.6 mmol/L (3.5-5.0)
[2019-01-14] MEDS ORDERED: Vancomycin(*) 750 MG in NS 0.9% 250 ML* 250 ML IVPB SCH (06:30)
[2019-01-14] MEDS ORDERED: Sodium Bicarbonate 8.4%* 50 ML SYRINGE ONE (06:34)
[2019-01-14] MEDS: Aztreonam (*) 1 GM in NS 0.9% 50 ML* 50 ML IVPB SCH (06:58)
[2019-01-14] MEDS: NS 0.9% IV SCH (07:28)
[2019-01-14] MEDS: PHENYLEPHRINE IV SCH (07:28)
[2019-01-14 07:42] LABS: ABS Lymphocytes 0.8 10^3/ul (1.0-4.8); ABS Monocytes 0.3 10^3/ul (0-0.8); ABS Neutrophils 8.6 10^3/ul (1.5-7.7); ABS Nucleated RBC 0.2 10^3/ul; Eosinophil % 0.2 %; Nucleated Red Blood Cells % 1.8
[2019-01-14] MEDS ORDERED: Sodium Bicarbonate 8.4% IV* 150 MEQ in D5W 1000 ML BAG* 1,000 ML IVPB SCH (09:00)
[2019-01-14] MEDS: Rivaroxaban TAB(*) 15 MG PO SCH (09:07)
[2019-01-14] MEDS: Lansoprazole SUSP* ORALSYR 3 MG/ML FEED TUBE SCH (09:07)
[2019-01-14] MEDS: Nystatin TOP POWDER* 15 GM BTL TOPICAL SCH (09:08)
[2019-01-14 09:45] VITALS: BP 105/55
--- NOTE | 2019-01-14 10:07 | PN ---
Critical Care Services: 24 hour events patient remains on Vasopressors and cannot be aroused. no corneal or gag reflexes diffuse mottling of abdomen now anuria overnight family at bedside Vital Signs: Temp Pulse Resp BP SpO2 FiO2 99.5 F 104 14 105/55 91 90 01/14/19 09:30 01/14/19 09:30 01/14/19 09:00 01/14/19 09:30 01/14/19 09:30 01/14 09:25 Physical Exam: Gen: HEENT: Lungs: Cardiac: Abdomen: Extremities: Neuro: Fluid Balance (Past 24 Hours): I= O= Net Intake & Output 01/12/19 01/13/19 01/14/19 01/15/19 06:59 06:59 06:59 06:59 Intake Total 6914 2755.2 4237 99 Output Total 2143 1885 1961 0 Balance 4771 870.2 2276 99 Weight 165 lb 9.074 oz 167 lb 8.821 oz 171 lb 3.52 oz Intake: IV Fluids 5086 544 2796 ABX - FLAGYL 200 KVO 159 26 LR 1296 NS 4927 518 1000 aztreonam 50 vanco 250 IVPB 516 366 200 ABX 50 ABX - FLAGYL 306 200 Calcium Gluconate 118 KVO 248 60 Mag Sulfate 50 NS 50 Medicated IV 1274 845.2 1102 CC - Dexmedetomidine/ 225 55.6 Precedex CC - Norepinephrine/ 838 613 336 Levophed CC - Phenylephrine/ 253 Neosynephrine CC - Propofol/Diprivan 161 454 CC - Vasopressin/ 80 15.6 59 Pitressin GEN - Pantoprazole/ 131 Protonix IV Narcotic Infusion 6 29 Fentanyl 6 29 Oral 38 1000 0 0 Tube Feeding 133 20 NG Tube Irrigate Amount 50 Output: NG Tube Drainage Amount 0 Urine 230 700 0 Osorio 1813 1785 511 0 Liquid Stool 100 100 750 0 Other: Date of Last Bowel 01/11/19 01/14/19 01/14/19 Movement ADLs: Meal Record Start: 01/10/19 15: 46 Freq: ,,18 Status: Hold Protocol: Created 01/10/19 15:46 System (Rec: 01/10/19 15:46 System ICU-M29) Document 01/10/19 18:00 CIB7646 (Rec: 01/10/19 18:39 UIH0065 ICU-M24) Document 01/11/19 09:00 SHN2231 (Rec: 01/11/19 09:22 JOG8683 ICU-C07) Document 01/11/19 13:00 DSO7064 (Rec: 01/11/19 13:16 MMM4792 ICU-C11) Document 01/11/19 18:00 BCS9993 (Rec: 01/11/19 18:10 CVK7739 ICU-M29) Document 01/12/19 09:00 IPE0050 (Rec: 01/12/19 10:37 SZZ7054 ICU-M29) Intake and Output Start: 01/10/19 11: 35 Freq: Status: Active Protocol: Created 01/10/19 11:35 System (Rec: 01/10/19 11:35 System EDRM-C07) Intake and Output Start: 01/10/19 15: 46 Freq: Q1HR Status: Active Protocol: Created 01/10/19 15:46 System (Rec: 01/10/19 15:46 System ICU-M29) Document 01/10/19 17:00 KII3994 (Rec: 01/10/19 17:21 QTT2785 ICU-M24) Document 01/10/19 20:00 HVG6804 (Rec: 01/10/19 20:53 ZSY6187 ICU-M24) Document 01/10/19 21:00 NXC7970 (Rec: 01/10/19 21:53 BGZ8553 ICU-M24) Document 01/10/19 22:47 EIM6669 (Rec: 01/10/19 22:48 ZZL8760 ICU-C12) Document 01/11/19 00:00 TKW4578 (Rec: 01/11/19 00:29 UDK4412 ICU-M29) Document 01/11/19 01:00 TGD9397 (Rec: 01/11/19 01:10 MXN1144 ICU-C06) Document 01/11/19 02:00 MJF3132 (Rec: 01/11/19 04:33 EMO8765 ICU-C06) Document 01/11/19 03:00 DFU3213 (Rec: 01/11/19 04:34 SJI9097 ICU-C06) Document 01/11/19 04:00 ORK6513 (Rec: 01/11/19 04:46 QFT9849 ICU-C06) Document 01/11/19 05:00 IFN3162 (Rec: 01/11/19 05:29 WJU2602 ICU-M29) Document 01/11/19 06:00 QMC3034 (Rec: 01/11/19 06:38 EZS3736 ICU-M29) Document 01/11/19 08:00 MHH3070 (Rec: 01/11/19 08:11 TRF8089 ICU-M29) Document 01/11/19 09:50 TMI9115 (Rec: 01/11/19 09:50 HQA1028 ICU-M29) Document 01/11/19 11:00 JPT7687 (Rec: 01/11/19 11:06 NNR3979 ICU-C07) Document 01/11/19 12:00 GOC8441 (Rec: 01/11/19 12:13 QHE4032 ICU-M29) Document 01/11/19 14:00 GYS2720 (Rec: 01/11/19 14:05 XWN0709 ICU-C07) Document 01/11/19 17:00 DXT8586 (Rec: 01/11/19 17:07 DQB4060 ICU-C07) Document 01/11/19 18:00 TMY2658 (Rec: 01/11/19 18:10 LJV9919 ICU-M29) Document 01/11/19 19:00 LCZ3315 (Rec: 01/11/19 20:14 HKJ1278 ICU-M29) Document 01/11/19 20:00 ANF8550 (Rec: 01/11/19 22:19 YCQ1214 ICU-M29) Co-Sign 01/11/19 20:00 VSX7814 Document 01/11/19 21:00 NYV2161 (Rec: 01/12/19 02:02 KSW9385 ICU-M29) Document 01/11/19 22:00 HMQ5064 (Rec: 01/12/19 02:43 UOS9494 ICU-C06) Document 01/11/19 23:00 YTI3136 (Rec: 01/12/19 02:50 VVX3285 ICU-C06) Document 01/12/19 00:00 PDL6804 (Rec: 01/12/19 03:20 PEN1753 ICU-C06) Document 01/12/19 01:00 QAI9920 (Rec: 01/12/19 03:22 SJB2094 ICU-C06) Document 01/12/19 02:00 FPT2342 (Rec: 01/12/19 08:12 UJC6317 ICU-M25) Document 01/12/19 03:00 NZU9196 (Rec: 01/12/19 08:15 FRA6793 ICU-M25) Document 01/12/19 04:00 ZDO8235 (Rec: 01/12/19 08:24 IUX3922 ICU-M25) Document 01/12/19 05:00 SAO9467 (Rec: 01/12/19 08:31 DXH7865 ICU-M25) Document 01/12/19 06:00 RSB7213 (Rec: 01/12/19 08:34 JZL0051 ICU-M25) Document 01/12/19 07:00 ZGT7219 (Rec: 01/12/19 08:35 HTL8326 ICU-M25) Document 01/12/19 08:00 OAR4155 (Rec: 01/12/19 10:06 FOI2793 ICU-C06) Document 01/12/19 09:00 FYK2431 (Rec: 01/12/19 10:06 XBM2078 ICU-C06) Document 01/12/19 10:00 RMR8983 (Rec: 01/12/19 10:06 LHB2529 ICU-C06) Document 01/12/19 11:00 MIC0905 (Rec: 01/12/19 11:18 RWZ4894 ICU-C06) Document 01/12/19 12:00 XWD9522 (Rec: 01/12/19 13:58 YXE4665 ICU-C06) Document 01/12/19 13:00 QRV0502 (Rec: 01/12/19 13:58 LHS2188 ICU-C06) Document 01/12/19 13:58 JBA6188 (Rec: 01/12/19 13:58 OYQ4212 ICU-C06) Document 01/12/19 15:00 XCS7900 (Rec: 01/12/19 15:26 PXP6250 ICU-M29) Document 01/12/19 18:21 QVS1540 (Rec: 01/12/19 18:21 DDS6899 ICU-M29) Document 01/12/19 19:00 KVQ2812 (Rec: 01/12/19 19:31 ARZ9926 ICU-C22) Document 01/12/19 20:00 LWO8044 (Rec: 01/13/19 01:45 KXP9471 ICU-C07) Document 01/12/19 21:00 ADN8628 (Rec: 01/13/19 01:48 MXP8144 ICU-C07) Document 01/12/19 22:00 YRU9217 (Rec: 01/13/19 01:51 HKA9402 ICU-C07) Document 01/12/19 23:00 TME6682 (Rec: 01/13/19 02:33 GYL7643 ICU-C07) Document 01/13/19 00:00 ODF1349 (Rec: 01/13/19 02:51 LQR8819 ICU-C07) Document 01/13/19 01:00 YNH4259 (Rec: 01/13/19 02:53 NDX7471 ICU-C07) Document 01/13/19 02:00 XSP6725 (Rec: 01/13/19 02:55 GJF0910 ICU-C07) Document 01/13/19 03:00 UER9420 (Rec: 01/13/19 03:58 KZY8532 ICU-C07) Document 01/13/19 03:59 PEW2460 (Rec: 01/13/19 04:08 CSD0626 ICU-C07) Document 01/13/19 05:00 MZC6517 (Rec: 01/13/19 06:03 DDH2321 ICU-C07) Document 01/13/19 06:00 BXN5933 (Rec: 01/13/19 06:02 RPB2957 ICU-C07) Document 01/13/19 07:00 EKC1208 (Rec: 01/13/19 07:36 RBL0151 ICU-C07) Document 01/13/19 08:00 AHT6023 (Rec: 01/13/19 08:39 SLN7058 ICU-M29) Document 01/13/19 09:01 DPG6215 (Rec: 01/13/19 09:02 HTX5363 ICU-M29) Document 01/13/19 10:00 DBW3733 (Rec: 01/13/19 11:20 UWQ5096 ICU-M29) Document 01/13/19 11:00 NFA6968 (Rec: 01/13/19 11:20 ZVY7750 ICU-M29) Document 01/13/19 12:00 NMD4653 (Rec: 01/13/19 13:20 VPP5330 ICU-C06) Document 01/13/19 13:00 DPD0315 (Rec: 01/13/19 13:20 SQP7788 ICU-C06) Document 01/13/19 14:00 KEB8543 (Rec: 01/13/19 14:18 KVH7818 ICU-M29) Document 01/13/19 15:00 BCV7781 (Rec: 01/13/19 15:20 ZXP8214 ICU-M29) Document 01/13/19 16:00 PFO8489 (Rec: 01/13/19 16:15 EGH5353 ICU-M29) Document 01/13/19 17:00 QYO8480 (Rec: 01/13/19 17:22 HZM8834 ICU-M29) Document 01/13/19 18:00 AMB1215 (Rec: 01/13/19 18:12 EWW3202 ICU-C06) Document 01/13/19 19:00 ZVT8961 (Rec: 01/13/19 19:01 LRF8463 ICU-M29) Document 01/13/19 20:00 DWJ4796 (Rec: 01/13/19 20:09 FED2641 ICU-M29) Document 01/13/19 21:00 OSR2192 (Rec: 01/13/19 21:35 ZNJ5648 ICU-M29) Document 01/13/19 21:58 HIX8914 (Rec: 01/13/19 21:59 FFB7598 ICU-M29) Document 01/13/19 22:49 MNH2842 (Rec: 01/13/19 22:50 KDA5853 ICU-C07) Document 01/13/19 23:48 VCZ8971 (Rec: 01/13/19 23:51 III1342 ICU-C07) Document 01/14/19 01:00 UBW9025 (Rec: 01/14/19 01:04 SNN8060 ICU-C07) Document 01/14/19 02:00 ZWN5052 (Rec: 01/14/19 02:36 QKG4030 ICU-C07) Document 01/14/19 03:00 FCU1272 (Rec: 01/14/19 03:04 JDP0002 ICU-C07) Document 01/14/19 03:19 WAX9071 (Rec: 01/14/19 03:19 GFZ1619 ICU-C07) Document 01/14/19 03:51 VKD4580 (Rec: 01/14/19 03:51 EYJ8568 ICU-C07) Document 01/14/19 05:00 WXN0804 (Rec: 01/14/19 05:19 TSL7984 ICU-M29) Document 01/14/19 05:45 XSH0526 (Rec: 01/14/19 05:49 NWF5752 ICU-C07) Document 01/14/19 07:00 LPM5023 (Rec: 01/14/19 07:12 UTG8562 ICU-C07) Document 01/14/19 08:00 JKJ4709 (Rec: 01/14/19 08:12 TIL9021 ICU-C07) Document 01/14/19 09:00 CZF9905 (Rec: 01/14/19 09:44 SAL0462 ICU-C07) Labs: Laboratory Results - last 24 hr 01/14/19 01/14/19 01/14/19 05:23 05:40 05:40 WBC 10.9 H RBC 2.86 L Hgb 8.7 L Hct 26 L MCV 90 MCH 30 MCHC 34 RDW 16 H Plt Count 190 MPV 7.8 Neut % (Auto) 88.8 Lymph % (Auto) 8.0 [place] % (Auto) 2.9 Eos % (Auto) 0.2 Baso % (Auto) 0.1 Absolute Neuts (auto) 8.6 H Absolute Lymphs (auto) 0.8 L Absolute Monos (auto) 0.3 Absolute Eos (auto) 0.0 Absolute Basos (auto) 0.0 Absolute Nucleated RBC 0.2 Immature Gran % 7.0 Neutrophils % 90.0 Band Neutrophils % 1.0 Lymphocytes % 3.0 Metamyelocytes % 6.0 H Nucleated RBC % 1.8 Nucleated RBCs/100 WBC 6.0 H Normal RBC Morphology Normal ABG pH (Temp Correct) < 7.00 L* ABG pCO2 63 H ABG pO2 83 ABG HCO3 TNP ABG O2 Saturation 99.2 H ABG Base Excess TNP Sodium 140 Potassium 5.6 H D Chloride 118 H Carbon Dioxide 17 L Anion Gap 5 BUN 36 H Creatinine 2.07 H Est GFR ( Amer) 27.7 Est GFR (Non-Af Amer) 22.9 BUN/Creatinine Ratio 17.4 Glucose 71 Lactic Acid Calcium 8.1 L Magnesium 2.4 Total Bilirubin 0.30 AST 41 H ALT 19 Alkaline Phosphatase 89 Total Protein 3.9 L Albumin 2.1 L Globulin 1.8 L Albumin/Globulin Ratio 1.2 01/14/19 06:10 WBC RBC Hgb Hct MCV MCH MCHC RDW Plt Count MPV Neut % (Auto) Lymph % (Auto) [place] % (Auto) Eos % (Auto) Baso % (Auto) Absolute Neuts (auto) Absolute Lymphs (auto) Absolute Monos (auto) Absolute Eos (auto) Absolute Basos (auto) Absolute Nucleated RBC Immature Gran % Neutrophils % Band Neutrophils % Lymphocytes % Metamyelocytes % Nucleated RBC % Nucleated RBCs/100 WBC Normal RBC Morphology ABG pH (Temp Correct) ABG pCO2 ABG pO2 ABG HCO3 ABG O2 Saturation ABG Base Excess Sodium Potassium Chloride Carbon Dioxide Anion Gap BUN Creatinine Est GFR ( Amer) Est GFR (Non-Af Amer) BUN/Creatinine Ratio Glucose Lactic Acid 2.9 H* Calcium Magnesium Total Bilirubin AST ALT Alkaline Phosphatase Total Protein Albumin Globulin Albumin/Globulin Ratio Impression: Septic shock with E.Coli in urine ARF on MV Paroxysmal JO on home NOAC Anemia JULES - resolved Dilated CBD on US with normal LFT's and Bili Demand ischemia with normal TTE Hyponatremia - resolved Poor ADL's at baseline Pain syndrome and on narcotics at home Hyperglycemia Plan: Plan: Had long conversation with son and daughter in-law to discuss patient's condition. They thought, seeing that she would not want such aggressive measures and was not doing well, decided to make her comfort care. They would like to be at the bedside for the terminal extubation. They decline pastoral services. No other family in the community. Critical Care Time: 76
--- NOTE | 2019-01-14 10:28 | PN ---
Date of Service: 01/14/19 Critical Care Services: Expiration Note Patient terminally extubated with family at bedside. At 10:17 AM patient passed. Patient had not spontaneous respiratory rate, no gag, pupillary or corneal reflexes. Vital Signs: Temp Pulse Resp BP SpO2 FiO2 99.5 F 104 14 105/55 91 90 01/14/19 09:30 01/14/19 09:30 01/14/19 09:00 01/14/19 09:30 01/14/19 09:30 01/14 09:25 Physical Exam: Gen: HEENT: Lungs: Cardiac: Abdomen: Extremities: Neuro: Fluid Balance (Past 24 Hours): I= O= Net Intake & Output 01/12/19 01/13/19 01/14/19 01/15/19 06:59 06:59 06:59 06:59 Intake Total 6914 2755.2 4237 99 Output Total 2143 1885 1961 0 Balance 4771 870.2 2276 99 Weight 165 lb 9.074 oz 167 lb 8.821 oz 171 lb 3.52 oz Intake: IV Fluids 5086 544 2796 ABX - FLAGYL 200 KVO 159 26 LR 1296 NS 4927 518 1000 aztreonam 50 vanco 250 IVPB 516 366 200 ABX 50 ABX - FLAGYL 306 200 Calcium Gluconate 118 KVO 248 60 Mag Sulfate 50 NS 50 Medicated IV 1274 845.2 1102 CC - Dexmedetomidine/ 225 55.6 Precedex CC - Norepinephrine/ 838 613 336 Levophed CC - Phenylephrine/ 253 Neosynephrine CC - Propofol/Diprivan 161 454 CC - Vasopressin/ 80 15.6 59 Pitressin GEN - Pantoprazole/ 131 Protonix IV Narcotic Infusion 6 29 Fentanyl 6 29 Oral 38 1000 0 0 Tube Feeding 133 20 NG Tube Irrigate Amount 50 Output: NG Tube Drainage Amount 0 Urine 230 700 0 Osorio 1813 1785 511 0 Liquid Stool 100 100 750 0 Other: Date of Last Bowel 01/11/19 01/14/19 01/14/19 Movement ADLs: Meal Record Start: 01/10/19 15: 46 Freq: ,,18 Status: Hold Protocol: Created 01/10/19 15:46 System (Rec: 01/10/19 15:46 System ICU-M29) Document 01/10/19 18:00 FQC5525 (Rec: 01/10/19 18:39 LHT6611 ICU-M24) Document 01/11/19 09:00 PVJ7560 (Rec: 01/11/19 09:22 ECQ6168 ICU-C07) Document 01/11/19 13:00 IBI5688 (Rec: 01/11/19 13:16 SSY1413 ICU-C11) Document 01/11/19 18:00 TBR3929 (Rec: 01/11/19 18:10 GXO1777 ICU-M29) Document 01/12/19 09:00 OKZ3237 (Rec: 01/12/19 10:37 KDT0772 ICU-M29) Intake and Output Start: 01/10/19 11: 35 Freq: Status: Active Protocol: Created 01/10/19 11:35 System (Rec: 01/10/19 11:35 System EDRM-C07) Intake and Output Start: 01/10/19 15: 46 Freq: Q1HR Status: Active Protocol: Created 01/10/19 15:46 System (Rec: 01/10/19 15:46 System ICU-M29) Document 01/10/19 17:00 MUL4535 (Rec: 01/10/19 17:21 TVU5110 ICU-M24) Document 01/10/19 20:00 GEX4686 (Rec: 01/10/19 20:53 UJH7627 ICU-M24) Document 01/10/19 21:00 ITZ5209 (Rec: 01/10/19 21:53 QWV3338 ICU-M24) Document 01/10/19 22:47 DDI1206 (Rec: 01/10/19 22:48 IJF8289 ICU-C12) Document 01/11/19 00:00 GOQ8591 (Rec: 01/11/19 00:29 ETL4843 ICU-M29) Document 01/11/19 01:00 HHR5736 (Rec: 01/11/19 01:10 WSP8899 ICU-C06) Document 01/11/19 02:00 PUP7049 (Rec: 01/11/19 04:33 GTO5643 ICU-C06) Document 01/11/19 03:00 AFH8733 (Rec: 01/11/19 04:34 HMY9011 ICU-C06) Document 01/11/19 04:00 OPY1567 (Rec: 01/11/19 04:46 VYD2928 ICU-C06) Document 01/11/19 05:00 ZGD9928 (Rec: 01/11/19 05:29 UKR8376 ICU-M29) Document 01/11/19 06:00 SMG8316 (Rec: 01/11/19 06:38 ADX8370 ICU-M29) Document 01/11/19 08:00 JDX9943 (Rec: 01/11/19 08:11 ZYR3754 ICU-M29) Document 01/11/19 09:50 MKI0598 (Rec: 01/11/19 09:50 RCS1357 ICU-M29) Document 01/11/19 11:00 RTX4160 (Rec: 01/11/19 11:06 DCA4507 ICU-C07) Document 01/11/19 12:00 RAE4407 (Rec: 01/11/19 12:13 XOG6352 ICU-M29) Document 01/11/19 14:00 YJE2644 (Rec: 01/11/19 14:05 EPC1448 ICU-C07) Document 01/11/19 17:00 VWT9115 (Rec: 01/11/19 17:07 OIF8741 ICU-C07) Document 01/11/19 18:00 JWB8537 (Rec: 01/11/19 18:10 NHX7228 ICU-M29) Document 01/11/19 19:00 GAH0408 (Rec: 01/11/19 20:14 PYV7090 ICU-M29) Document 01/11/19 20:00 NKQ7463 (Rec: 01/11/19 22:19 VNK7269 ICU-M29) Co-Sign 01/11/19 20:00 MKR0750 Document 01/11/19 21:00 YBG9411 (Rec: 01/12/19 02:02 WNQ9128 ICU-M29) Document 01/11/19 22:00 FBH9663 (Rec: 01/12/19 02:43 PLP2239 ICU-C06) Document 01/11/19 23:00 NQD5447 (Rec: 01/12/19 02:50 NKS0154 ICU-C06) Document 01/12/19 00:00 SYK1248 (Rec: 01/12/19 03:20 VZC2097 ICU-C06) Document 01/12/19 01:00 JQD0085 (Rec: 01/12/19 03:22 MXE3606 ICU-C06) Document 01/12/19 02:00 XMK4386 (Rec: 01/12/19 08:12 DUH5003 ICU-M25) Document 01/12/19 03:00 BUX2619 (Rec: 01/12/19 08:15 KTP6340 ICU-M25) Document 01/12/19 04:00 RBA2470 (Rec: 01/12/19 08:24 CKX7749 ICU-M25) Document 01/12/19 05:00 SPT8810 (Rec: 01/12/19 08:31 BEQ8336 ICU-M25) Document 01/12/19 06:00 YEP6310 (Rec: 01/12/19 08:34 DVS7400 ICU-M25) Document 01/12/19 07:00 UYR5471 (Rec: 01/12/19 08:35 FKJ7724 ICU-M25) Document 01/12/19 08:00 BXI9073 (Rec: 01/12/19 10:06 STE7929 ICU-C06) Document 01/12/19 09:00 WFE2843 (Rec: 01/12/19 10:06 UBB5938 ICU-C06) Document 01/12/19 10:00 TBW2123 (Rec: 01/12/19 10:06 XRZ3495 ICU-C06) Document 01/12/19 11:00 WQL1133 (Rec: 01/12/19 11:18 DIZ9836 ICU-C06) Document 01/12/19 12:00 LZU4874 (Rec: 01/12/19 13:58 UGG4326 ICU-C06) Document 01/12/19 13:00 EKY4889 (Rec: 01/12/19 13:58 OSM7724 ICU-C06) Document 01/12/19 13:58 XPG1652 (Rec: 01/12/19 13:58 DCE7029 ICU-C06) Document 01/12/19 15:00 ITH6612 (Rec: 01/12/19 15:26 AUA2507 ICU-M29) Document 01/12/19 18:21 SWC3375 (Rec: 01/12/19 18:21 VGR0246 ICU-M29) Document 01/12/19 19:00 UGK6251 (Rec: 01/12/19 19:31 UAJ2431 ICU-C22) Document 01/12/19 20:00 DKL6177 (Rec: 01/13/19 01:45 CTK6582 ICU-C07) Document 01/12/19 21:00 QCK8205 (Rec: 01/13/19 01:48 SLI4339 ICU-C07) Document 01/12/19 22:00 THW1613 (Rec: 01/13/19 01:51 LPB7851 ICU-C07) Document 01/12/19 23:00 AZS2116 (Rec: 01/13/19 02:33 MNA2717 ICU-C07) Document 01/13/19 00:00 BRJ2634 (Rec: 01/13/19 02:51 EOT0962 ICU-C07) Document 01/13/19 01:00 FMX4531 (Rec: 01/13/19 02:53 RNP3744 ICU-C07) Document 01/13/19 02:00 WMQ5312 (Rec: 01/13/19 02:55 MNK3899 ICU-C07) Document 01/13/19 03:00 VQR5559 (Rec: 01/13/19 03:58 KQR2665 ICU-C07) Document 01/13/19 03:59 ZAQ4255 (Rec: 01/13/19 04:08 TNH7236 ICU-C07) Document 01/13/19 05:00 PUX8765 (Rec: 01/13/19 06:03 MSQ5923 ICU-C07) Document 01/13/19 06:00 AUB2707 (Rec: 01/13/19 06:02 LDJ5511 ICU-C07) Document 01/13/19 07:00 RVJ3849 (Rec: 01/13/19 07:36 OCQ0174 ICU-C07) Document 01/13/19 08:00 SRE4240 (Rec: 01/13/19 08:39 PAG9279 ICU-M29) Document 01/13/19 09:01 FBG4766 (Rec: 01/13/19 09:02 WBE7747 ICU-M29) Document 01/13/19 10:00 CYI8852 (Rec: 01/13/19 11:20 RSE9824 ICU-M29) Document 01/13/19 11:00 POR4000 (Rec: 01/13/19 11:20 JUI4973 ICU-M29) Document 01/13/19 12:00 QEI5646 (Rec: 01/13/19 13:20 VKU3581 ICU-C06) Document 01/13/19 13:00 AEL8885 (Rec: 01/13/19 13:20 WXE8574 ICU-C06) Document 01/13/19 14:00 BCG0707 (Rec: 01/13/19 14:18 JGY1746 ICU-M29) Document 01/13/19 15:00 MSC1056 (Rec: 01/13/19 15:20 OJC2461 ICU-M29) Document 01/13/19 16:00 TMI5471 (Rec: 01/13/19 16:15 AVB5403 ICU-M29) Document 01/13/19 17:00 WRG4266 (Rec: 01/13/19 17:22 TLF4601 ICU-M29) Document 01/13/19 18:00 ZSK7381 (Rec: 01/13/19 18:12 IRT1063 ICU-C06) Document 01/13/19 19:00 VKJ0545 (Rec: 01/13/19 19:01 TEU0665 ICU-M29) Document 01/13/19 20:00 ZYI5195 (Rec: 01/13/19 20:09 FBF8266 ICU-M29) Document 01/13/19 21:00 BNU8606 (Rec: 01/13/19 21:35 FUG1389 ICU-M29) Document 01/13/19 21:58 NMK8786 (Rec: 01/13/19 21:59 IYF8116 ICU-M29) Document 01/13/19 22:49 RAN8127 (Rec: 01/13/19 22:50 WRW3633 ICU-C07) Document 01/13/19 23:48 ZZG3637 (Rec: 01/13/19 23:51 VYP2014 ICU-C07) Document 01/14/19 01:00 SSK4459 (Rec: 01/14/19 01:04 IDZ8198 ICU-C07) Document 01/14/19 02:00 VKC9578 (Rec: 01/14/19 02:36 OXE7061 ICU-C07) Document 01/14/19 03:00 ZGB0015 (Rec: 01/14/19 03:04 TIJ9173 ICU-C07) Document 01/14/19 03:19 MEQ6664 (Rec: 01/14/19 03:19 RLK6123 ICU-C07) Document 01/14/19 03:51 GRP4691 (Rec: 01/14/19 03:51 CEP0420 ICU-C07) Document 01/14/19 05:00 XJW3953 (Rec: 01/14/19 05:19 JII6439 ICU-M29) Document 01/14/19 05:45 NOA5556 (Rec: 01/14/19 05:49 QYR7510 ICU-C07) Document 01/14/19 07:00 DVO1869 (Rec: 01/14/19 07:12 KWV2208 ICU-C07) Document 01/14/19 08:00 PVT8308 (Rec: 01/14/19 08:12 NIJ8573 ICU-C07) Document 01/14/19 09:00 WDA5024 (Rec: 01/14/19 09:44 FEE5374 ICU-C07) Labs: Laboratory Results - last 24 hr 01/14/19 01/14/19 01/14/19 05:23 05:40 05:40 WBC 10.9 H RBC 2.86 L Hgb 8.7 L Hct 26 L MCV 90 MCH 30 MCHC 34 RDW 16 H Plt Count 190 MPV 7.8 Neut % (Auto) 88.8 Lymph % (Auto) 8.0 [place] % (Auto) 2.9 Eos % (Auto) 0.2 Baso % (Auto) 0.1 Absolute Neuts (auto) 8.6 H Absolute Lymphs (auto) 0.8 L Absolute Monos (auto) 0.3 Absolute Eos (auto) 0.0 Absolute Basos (auto) 0.0 Absolute Nucleated RBC 0.2 Immature Gran % 7.0 Neutrophils % 90.0 Band Neutrophils % 1.0 Lymphocytes % 3.0 Metamyelocytes % 6.0 H Nucleated RBC % 1.8 Nucleated RBCs/100 WBC 6.0 H Normal RBC Morphology Normal ABG pH (Temp Correct) < 7.00 L* ABG pCO2 63 H ABG pO2 83 ABG HCO3 TNP ABG O2 Saturation 99.2 H ABG Base Excess TNP Sodium 140 Potassium 5.6 H D Chloride 118 H Carbon Dioxide 17 L Anion Gap 5 BUN 36 H Creatinine 2.07 H Est GFR ( Amer) 27.7 Est GFR (Non-Af Amer) 22.9 BUN/Creatinine Ratio 17.4 Glucose 71 Lactic Acid Calcium 8.1 L Magnesium 2.4 Total Bilirubin 0.30 AST 41 H ALT 19 Alkaline Phosphatase 89 Total Protein 3.9 L Albumin 2.1 L Globulin 1.8 L Albumin/Globulin Ratio 1.2 01/14/19 06:10 WBC RBC Hgb Hct MCV MCH MCHC RDW Plt Count MPV Neut % (Auto) Lymph % (Auto) [place] % (Auto) Eos % (Auto) Baso % (Auto) Absolute Neuts (auto) Absolute Lymphs (auto) Absolute Monos (auto) Absolute Eos (auto) Absolute Basos (auto) Absolute Nucleated RBC Immature Gran % Neutrophils % Band Neutrophils % Lymphocytes % Metamyelocytes % Nucleated RBC % Nucleated RBCs/100 WBC Normal RBC Morphology ABG pH (Temp Correct) ABG pCO2 ABG pO2 ABG HCO3 ABG O2 Saturation ABG Base Excess Sodium Potassium Chloride Carbon Dioxide Anion Gap BUN Creatinine Est GFR ( Amer) Est GFR (Non-Af Amer) BUN/Creatinine Ratio Glucose Lactic Acid 2.9 H* Calcium Magnesium Total Bilirubin AST ALT Alkaline Phosphatase Total Protein Albumin Globulin Albumin/Globulin Ratio Plan: Critical Care Time:
== END 2019-01-14 10:17 | disposition expired | DRG 871 ==
LOC: ED 11:26 → ICU 14:24
PROVIDERS: ADMIT Internal Medicine; ATTEND Internal Medicine
PROC: 02HV33Z Insertion of Infusion Device into Superior Vena Cava, Percutaneous Approach (ICD-10-PCS; principal; 2019-01-11)
PROC: 5A1935Z Respiratory Ventilation, Less than 24 Consecutive Hours (ICD-10-PCS; 2019-01-11)
PROC: 3E033XZ Introduction of Vasopressor into Peripheral Vein, Percutaneous Approach (ICD-10-PCS; 2019-01-12)
PROC: 0DH67UZ Insertion of Feeding Device into Stomach, Via Natural or Artificial Opening (ICD-10-PCS; 2019-01-12)
PROC: 5A09357 Assistance with Respiratory Ventilation, Less than 24 Consecutive Hours, Continuous Positive Airway Pressure (ICD-10-PCS; 2019-01-13)
PROC: 02HV33Z Insertion of Infusion Device into Superior Vena Cava, Percutaneous Approach (ICD-10-PCS; 2019-01-14)
PROC: 0BH18EZ Insertion of Endotracheal Airway into Trachea, Via Natural or Artificial Opening Endoscopic (ICD-10-PCS; 2019-01-14)
DX: A41.51 Sepsis due to Escherichia coli [E. coli] (principal); R65.21 Severe sepsis with septic shock; J98.11 Atelectasis; N17.9 Acute kidney failure, unspecified; N39.0 Urinary tract infection, site not specified; E87.1 Hypo-osmolality and hyponatremia; E87.2 Acidosis; I24.8 Other forms of acute ischemic heart disease; G93.40 Encephalopathy, unspecified; J44.9 Chronic obstructive pulmonary disease, unspecified; I10 Essential (primary) hypertension; I48.91 Unspecified atrial fibrillation; J30.2 Other seasonal allergic rhinitis; R06.03 Acute respiratory distress; M19.90 Unspecified osteoarthritis, unspecified site; G43.909 Migraine, unspecified, not intractable, without status migrainosus; R21 Rash and other nonspecific skin eruption; R40.2362 Coma scale, best motor response, obeys commands, at arrival to emergency department; R40.2142 Coma scale, eyes open, spontaneous, at arrival to emergency department; R40.2242 Coma scale, best verbal response, confused conversation, at arrival to emergency department; N20.0 Calculus of kidney; I44.0 Atrioventricular block, first degree; R73.9 Hyperglycemia, unspecified; F20.9 Schizophrenia, unspecified; G89.29 Other chronic pain; M25.551 Pain in right hip; R41.0 Disorientation, unspecified; B96.20 Unspecified Escherichia coli [E. coli] as the cause of diseases classified elsewhere; G89.4 Chronic pain syndrome; D64.9 Anemia, unspecified; K83.8 Other specified diseases of biliary tract; B95.7 Other staphylococcus as the cause of diseases classified elsewhere; I48.0 Paroxysmal atrial fibrillation; K52.9 Noninfective gastroenteritis and colitis, unspecified; F41.9 Anxiety disorder, unspecified; F32.9 Major depressive disorder, single episode, unspecified; Z88.0 Allergy status to penicillin; Z87.01 Personal history of pneumonia (recurrent); Z87.440 Personal history of urinary (tract) infections; Z90.710 Acquired absence of both cervix and uterus; Z87.891 Personal history of nicotine dependence; Z74.01 Bed confinement status
CPT/HCPCS: 36415; 36600; 70450; 71045; 71250; 74018; 74176; 74177; 76705; 80048; 80053; 81003; 81015; 82271; 82550; 82803; 83036; 83605; 83735; 83880; 83935; 84100; 84300; 84484; 85025; 85060; 85610; 85730; 86140; 86850; 86900; 86901; 87040; 87077; 87086; 87150; 87186; 87205; 87493; 87641; 93005; 93306; 94002; 94003; 94660; 99285; A9270-GY; C8929; J0330; J0610; J1100; J1160; J1940; J2270; J2704; J3010; J3370; J3475; J3480; J3490; J7060; Q9967